=== PATIENT | female | born 1960 | race Caucasian/White ===

== ENCOUNTER → 2017-10-24 | Emergency (ER) | payer MEDICAID ==
[~2017-10-24] VITALS: Ht 157.5 cm; Wt 77.3 kg
[~2017-10-24] MED LIST: ATOR20TA PO; FLUT16SP26 BOTHNARES; HYDR-3965 PO; INSU100V12 SQ; METF500T PO; MONT10TA21 PO; NAPR-56 PO; QUET-1 PO; ibuprofen 200mg tablet PO ONE; ibuprofen tablet 400 MG TABLET PO ONE
[2017-10-24 11:52] VITALS: BP 136/85
== END | disposition home or self-care (01) ==
LOC: ER 10:17
DX: M79.603 Pain in arm, unspecified (principal); I25.10 Atherosclerotic heart disease of native coronary artery without angina pectoris; E78.00 Pure hypercholesterolemia, unspecified; I10 Essential (primary) hypertension; I25.2 Old myocardial infarction; J44.9 Chronic obstructive pulmonary disease, unspecified; K21.9 Gastro-esophageal reflux disease without esophagitis; E11.9 Type 2 diabetes mellitus without complications; F17.200 Nicotine dependence, unspecified, uncomplicated; Z98.890 Other specified postprocedural states; Z59.0 Homelessness; Z60.2 Problems related to living alone; Z88.1 Allergy status to other antibiotic agents; Z88.2 Allergy status to sulfonamides; Z88.8 Allergy status to other drugs, medicaments and biological substances; Z79.4 Long term (current) use of insulin; Z79.84 Long term (current) use of oral hypoglycemic drugs
CPT/HCPCS: 29105; 73030; 73080; 99284; A4565; A6449

== ENCOUNTER 2017-10-25 10:26 | Emergency (ER) | payer MEDICAID ==
[~2017-10-25] VITALS: Ht 157.5 cm; Wt 78.3 kg
[~2017-10-25 10:26] MED LIST changes: -HYDR-3965 PO; -NAPR-56 PO; -ibuprofen 200mg tablet PO ONE; -ibuprofen tablet 400 MG TABLET PO ONE
[2017-10-25] MEDS ORDERED: HYDR-3965 PO (12:05)
[2017-10-25 12:22] VITALS: BP 143/85
== END 2017-10-25 12:24 | disposition home or self-care (01) ==
LOC: ER 10:27
DX: Z47.89 Encounter for other orthopedic aftercare (principal); I25.10 Atherosclerotic heart disease of native coronary artery without angina pectoris; E78.00 Pure hypercholesterolemia, unspecified; I10 Essential (primary) hypertension; I25.2 Old myocardial infarction; J44.9 Chronic obstructive pulmonary disease, unspecified; K21.9 Gastro-esophageal reflux disease without esophagitis; E11.9 Type 2 diabetes mellitus without complications; Z88.2 Allergy status to sulfonamides; Z88.1 Allergy status to other antibiotic agents; Z79.4 Long term (current) use of insulin; Z79.899 Other long term (current) drug therapy; Z60.2 Problems related to living alone
CPT/HCPCS: 29105; 99283

== ENCOUNTER 2017-10-29 13:00 | Emergency (ER) | payer MEDICAID ==
[~2017-10-29] VITALS: Ht 157.5 cm; Wt 75.0 kg
[~2017-10-29 13:00] MED LIST changes: +HYDR-3965 PO
[2017-10-29 13:06] VITALS: BP 120/61
[2017-10-29] MEDS ORDERED: NAPR-56 PO (14:02)
== END 2017-10-29 14:09 | disposition home or self-care (01) ==
LOC: ER 13:00
DX: M77.9 Enthesopathy, unspecified (principal); I25.10 Atherosclerotic heart disease of native coronary artery without angina pectoris; E78.00 Pure hypercholesterolemia, unspecified; I10 Essential (primary) hypertension; I25.2 Old myocardial infarction; J44.0 Chronic obstructive pulmonary disease with (acute) lower respiratory infection; K21.9 Gastro-esophageal reflux disease without esophagitis; E11.9 Type 2 diabetes mellitus without complications; F32.9 Major depressive disorder, single episode, unspecified; Z88.1 Allergy status to other antibiotic agents; Z88.2 Allergy status to sulfonamides; Z88.5 Allergy status to narcotic agent; Z79.4 Long term (current) use of insulin
CPT/HCPCS: 73080; 99284

== ENCOUNTER 2017-12-14 10:25 | Emergency (ER) | payer MEDICAID ==
[~2017-12-14] VITALS: Ht 157.5 cm; Wt 78.7 kg
[~2017-12-14 10:25] MED LIST changes: +CEPH-571 PO; -HYDR-3965 PO
[2017-12-14 11:11] VITALS: BP 112/69
[2017-12-14] MEDS ORDERED: LIDO20SO16 PO (12:55)
== END 2017-12-14 13:00 | disposition home or self-care (01) ==
LOC: ER 10:26
DX: J02.9 Acute pharyngitis, unspecified (principal); R05 Cough; F17.200 Nicotine dependence, unspecified, uncomplicated; E78.00 Pure hypercholesterolemia, unspecified; I25.10 Atherosclerotic heart disease of native coronary artery without angina pectoris; I10 Essential (primary) hypertension; I25.2 Old myocardial infarction; J44.9 Chronic obstructive pulmonary disease, unspecified; K21.9 Gastro-esophageal reflux disease without esophagitis; E11.9 Type 2 diabetes mellitus without complications; Z60.2 Problems related to living alone; Z88.2 Allergy status to sulfonamides; Z88.8 Allergy status to other drugs, medicaments and biological substances; Z79.84 Long term (current) use of oral hypoglycemic drugs; Z79.4 Long term (current) use of insulin; Z79.899 Other long term (current) drug therapy
CPT/HCPCS: 71046; 99284

== ENCOUNTER 2018-01-21 16:40 | Emergency (ER) | payer MEDICAID ==
[~2018-01-21] VITALS: Ht 160 cm; Wt 77.0 kg
[~2018-01-21 16:40] MED LIST changes: +LIDO20SO16 PO
[2018-01-21 17:07] VITALS: BP 127/87
[2018-01-21] MEDS ORDERED: ibuprofen 200mg tablet PO ONE (19:40)
== END 2018-01-21 20:14 | disposition home or self-care (01) ==
LOC: ER 16:40
DX: S93.401A Sprain of unspecified ligament of right ankle, initial encounter (principal); I25.10 Atherosclerotic heart disease of native coronary artery without angina pectoris; E78.00 Pure hypercholesterolemia, unspecified; I10 Essential (primary) hypertension; I25.2 Old myocardial infarction; J44.9 Chronic obstructive pulmonary disease, unspecified; K21.9 Gastro-esophageal reflux disease without esophagitis; E11.9 Type 2 diabetes mellitus without complications; Z98.51 Tubal ligation status; Z59.0 Homelessness; Z88.8 Allergy status to other drugs, medicaments and biological substances; Z79.4 Long term (current) use of insulin; Z79.899 Other long term (current) drug therapy; X50.1XXA Overexertion from prolonged static or awkward postures, initial encounter; Y93.89 Activity, other specified; Y92.89 Other specified places as the place of occurrence of the external cause; Y99.8 Other external cause status
CPT/HCPCS: 73610; 99284

== ENCOUNTER 2018-11-06 15:10 | Emergency (ER) | payer MEDICAID ==
[~2018-11-06] VITALS: Ht 160 cm; Wt 78.9 kg
[2018-11-06 15:15] VITALS: BP 153/74
[2018-11-06] MEDS ORDERED: fluconazole 150mg tablet PO ONE (16:15)
[2018-11-06 16:46] LABS: CLARITY,URINE SLIGHTLY CLOUDY (Clear); COLOR,URINE STRAW (Yellow); GLUCOSE, URINE >=1000 mg/dl (Neg); KETONES,URINE NEGATIVE (Neg); LEUKOCYTE ESTERASE ,URINE NEGATIVE (Neg); NITRITES, URINE NEGATIVE (Neg); OCCULT BLOOD,URINE NEGATIVE (Neg); PROTEIN,URINE NEGATIVE (Neg); UROBILINOGEN,URINE 0.2 E.U/dL (0.2-1.0)
[2018-11-06 16:49] LABS: UA COLLECTION TYPE CLN CATCH MIDSTREAM
[2018-11-06 16:53] LABS: BACTERIA,URINE 1+ /HPF (Neg); MUCUS STRANDS FEW /LPF (Neg); RBC,URINE 0-2 /HPF (0-2); SQUAMOUS EPITHELIAL CELL,UR MANY /LPF (FEW); WBC,URINE 0-4 /HPF (0-4)
[2018-11-06] MEDS ORDERED: ibuprofen tablet 400 MG TABLET PO ONE (17:35)
== END 2018-11-06 17:47 | disposition home or self-care (01) ==
LOC: ER 15:11
DX: B37.9 Candidiasis, unspecified (principal); M54.5 Low back pain; I25.10 Atherosclerotic heart disease of native coronary artery without angina pectoris; E78.00 Pure hypercholesterolemia, unspecified; I10 Essential (primary) hypertension; I25.2 Old myocardial infarction; J44.9 Chronic obstructive pulmonary disease, unspecified; K21.9 Gastro-esophageal reflux disease without esophagitis; E11.9 Type 2 diabetes mellitus without complications; Z98.51 Tubal ligation status; Z98.890 Other specified postprocedural states; Z88.1 Allergy status to other antibiotic agents; Z88.2 Allergy status to sulfonamides; Z88.8 Allergy status to other drugs, medicaments and biological substances; Z79.84 Long term (current) use of oral hypoglycemic drugs; Z79.4 Long term (current) use of insulin; Z79.899 Other long term (current) drug therapy; Z60.2 Problems related to living alone
CPT/HCPCS: 81001; 82948; 99283

== ENCOUNTER 2020-06-29 09:53 | Emergency (ER) | payer MEDICAID ==
[~2020-06-29] VITALS: Ht 162.6 cm; Wt 77.3 kg
[2020-06-29 10:07] VITALS: BP 110/65
--- NOTE | 2020-06-29 17:32 | NUR ---
Attempted to contact patient for Marvin ORELLANA, left voicemail for patient to call ED back. Marvin ORELLANA wanted to discuss with patient that she needed to obtain an outpatient CT.
--- NOTE | 2020-06-29 18:00 | NUR ---
Patient called back and spoke with Good PA regarding need to outpatient CT.
== END 2020-06-29 12:57 | disposition home or self-care (01) ==
LOC: ER 09:53
DX: J06.9 Acute upper respiratory infection, unspecified (principal); Z20.828 Contact with and (suspected) exposure to other viral communicable diseases; I25.10 Atherosclerotic heart disease of native coronary artery without angina pectoris; E78.00 Pure hypercholesterolemia, unspecified; I10 Essential (primary) hypertension; I25.2 Old myocardial infarction; J44.9 Chronic obstructive pulmonary disease, unspecified; K21.9 Gastro-esophageal reflux disease without esophagitis; E11.9 Type 2 diabetes mellitus without complications; G89.29 Other chronic pain; F32.9 Major depressive disorder, single episode, unspecified; Z98.890 Other specified postprocedural states; Z98.51 Tubal ligation status; Z95.818 Presence of other cardiac implants and grafts; Z60.2 Problems related to living alone; Z88.1 Allergy status to other antibiotic agents; Z88.8 Allergy status to other drugs, medicaments and biological substances; Z79.4 Long term (current) use of insulin; Z79.899 Other long term (current) drug therapy
CPT/HCPCS: 36415; 71045; 87502; 87503; 87635; 99284

== ENCOUNTER 2020-09-09 17:28 | Emergency (ER) | payer MEDICAID ==
[~2020-09-09] VITALS: Ht 160 cm; Wt 78.2 kg
== END 2020-09-09 18:30 | disposition home or self-care (01) ==
LOC: ER 17:29
DX: R05 Cough (principal); I25.10 Atherosclerotic heart disease of native coronary artery without angina pectoris; E78.00 Pure hypercholesterolemia, unspecified; I10 Essential (primary) hypertension; I25.2 Old myocardial infarction; J44.9 Chronic obstructive pulmonary disease, unspecified; K21.9 Gastro-esophageal reflux disease without esophagitis; E11.9 Type 2 diabetes mellitus without complications; G89.29 Other chronic pain; F32.9 Major depressive disorder, single episode, unspecified; Z72.0 Tobacco use; Z98.51 Tubal ligation status; Z98.890 Other specified postprocedural states; Z60.2 Problems related to living alone; Z88.1 Allergy status to other antibiotic agents; Z88.8 Allergy status to other drugs, medicaments and biological substances; Z79.2 Long term (current) use of antibiotics; Z79.4 Long term (current) use of insulin; Z79.899 Other long term (current) drug therapy
CPT/HCPCS: 99281; 99282

== ENCOUNTER 2020-09-12 10:02 | Emergency (ER) | payer MEDICAID ==
[~2020-09-12] VITALS: Ht 160 cm; Wt 77.3 kg
[2020-09-12 10:10] VITALS: BP 143/80
[2020-09-12] MEDS ORDERED: DOXY100C43 PO (12:04)
== END 2020-09-12 12:16 | disposition home or self-care (01) ==
LOC: ER 10:02
DX: J45.909 Unspecified asthma, uncomplicated (principal); R06.02 Shortness of breath; H92.03 Otalgia, bilateral; R05 Cough; Z20.828 Contact with and (suspected) exposure to other viral communicable diseases; I25.10 Atherosclerotic heart disease of native coronary artery without angina pectoris; E78.00 Pure hypercholesterolemia, unspecified; I10 Essential (primary) hypertension; I25.2 Old myocardial infarction; J44.9 Chronic obstructive pulmonary disease, unspecified; K21.9 Gastro-esophageal reflux disease without esophagitis; E11.9 Type 2 diabetes mellitus without complications; G89.29 Other chronic pain; F32.9 Major depressive disorder, single episode, unspecified; F17.200 Nicotine dependence, unspecified, uncomplicated; Z98.51 Tubal ligation status; Z98.890 Other specified postprocedural states; Z60.2 Problems related to living alone; Z88.1 Allergy status to other antibiotic agents; Z88.8 Allergy status to other drugs, medicaments and biological substances; Z79.2 Long term (current) use of antibiotics; Z79.4 Long term (current) use of insulin; Z79.899 Other long term (current) drug therapy
CPT/HCPCS: 36415; 71045; 87635; 99284

== ENCOUNTER 2020-09-22 06:41 | Inpatient (IN) | payer MEDICAID ==
[~2020-09-22] VITALS: Ht 160 cm; Wt 69.0 kg
[~2020-09-22 06:41] MED LIST changes: +DOXY100C43 PO
[2020-09-22 07:17] LABS: CLARITY,URINE CLEAR (Clear); COLOR,URINE STRAW (Yellow); GLUCOSE, URINE >=1000 mg/dl (Neg); KETONES,URINE TRACE mg/dl (Neg); LEUKOCYTE ESTERASE ,URINE NEGATIVE (Neg); NITRITES, URINE NEGATIVE (Neg); OCCULT BLOOD,URINE NEGATIVE (Neg); PH,URINE 5.5 (4.8-8.0); PROTEIN,URINE NEGATIVE (Neg); UROBILINOGEN,URINE 0.2 E.U/dL (0.2-1.0)
[2020-09-22 07:24] LABS: UA COLLECTION TYPE CLN CATCH MIDSTREAM
[2020-09-22 07:25] LABS: RBC,URINE NONE SEEN /HPF (0-2); WBC,URINE 0-4 /HPF (0-4)
[2020-09-22 07:26] LABS: BACTERIA,URINE FEW /HPF (Neg); MUCUS STRANDS NONE SEEN /LPF (Neg); SQUAMOUS EPITHELIAL CELL,UR FEW /LPF (FEW); YEAST FEW /HPF (NEGATIVE)
[2020-09-22 07:42] LABS: EOSINOPHILS # (AUTO) 0.2 X10'3 (0-0.9); LYMPHOCYTES # (AUTO) 1.9 X10'3 (1.1-4.8); MONOCYTES # (AUTO) 0.5 X10'3 (0-0.9); RED CELL DISTRIBUTION WIDTH 14.1 % (11.5-14.5)
[2020-09-22 07:43] LABS: BASOPHILS # (AUTO) 0.1 X10'3 (0-0.2); BASOPHILS % (AUTO) 0.8 % (0-1); HEMATOCRIT 39.4 % (35.0-45.0); HEMOGLOBIN 13.3 g/dl (12.0-16.0); LYMPHOCYTES % (AUTO) 22.9 % (21-51); MEAN CORPUSCULAR HEMOGLOBIN 27.3 PG (27.0-31.0); MEAN CORPUSCULAR HGB CONC 33.6 g/dL (33.0-36.5); MEAN CORPUSCULAR VOLUME 81.2 FL (78-98); MEAN PLATELET VOLUME 9.1 FL (7.4-10.4); MONOCYTES % (AUTO) 5.6 % (2-12); NEUTROPHILS # (AUTO) 5.8 X10'3 (1.8-7.7); NEUTROPHILS % (AUTO) 68.7 % (42-75); PLATELET COUNT 359 X10'3 (140-440); RED BLOOD COUNT 4.85 X10'6 (4.20-5.60); WHITE BLOOD COUNT 8.4 X10'3 (4.5-11.0)
[2020-09-22] MEDS ORDERED: ondansetron/PF 4mg/2ml inj IV ONE ×2 (07:50→09:10)
[2020-09-22] MEDS ORDERED: normal saline 1000ML IV soln IVB ONE ×2 (07:50→09:10)
[2020-09-22] MEDS: morphine 4 MG/ML inj SYRINge IV PRN ×2 (07:57→08:49)
[2020-09-22 08:05] LABS: ALANINE AMINOTRANSFERASE 24 U/L (12-78); ALBUMIN 2.8 G/DL (3.4-5.0); ALBUMIN/GLOBULIN RATIO 0.7 (1.1-1.5); ALKALINE PHOSPHATASE 149 IU/L (46-116); AMYLASE 45 U/L (25-115); ANION GAP 11 (8-16); ASPARTATE AMINO TRANSFERASE 13 U/L (10-37); BILIRUBIN,TOTAL 0.3 MG/DL (0.1-1.0); BLOOD UREA NITROGEN 12 MG/DL (7-18); BUN/CREATININE RATIO 12.4 (6.6-38.0); CALCIUM 9.5 MG/DL (8.5-10.1); CHLORIDE 97 MMOL/L (99-107); CREATININE 0.97 MG/DL (0.40-0.90); GLUCOSE 416 MG/DL (70-104); LIPASE 611 U/L (73-393); POTASSIUM 4.2 MMOL/L (3.5-5.1); SODIUM 131 MMOL/L (135-145); TOTAL CARBON DIOXIDE 23.1 MMOL/L (24-32); TOTAL PROTEIN 6.7 G/DL (6.4-8.2); eGFR 59 ML/MIN
--- NOTE | 2020-09-22 08:36 | NUR ---
PT TAKEN TO CT VIA W/C BY TECH.
--- NOTE | 2020-09-22 08:43 | NUR ---
PT BACK FROM CT VIA W/C. PT GIVEN PORTABLE PHONE.
[2020-09-22] MEDS ORDERED: morphine 4 MG/ML inj SYRINge IV PRN (09:10)
[2020-09-22] MEDS ORDERED: sucralfate 1gm/10ml UD suspension PO STA (10:13)
[2020-09-22] MEDS ORDERED: HYDROcodone/acetaminophen 10/325mg tab PO ONE (10:15)
[2020-09-22] MEDS ORDERED: LIDOcaine Viscous 15ml cup MM ONE (10:15)
[2020-09-22] MEDS ORDERED: mag hydrox/Alum hydrox/simeth 30ml oral suspension PO ONE (10:15)
[2020-09-22] MEDS ORDERED: HYDR-4353 PO (10:17)
[2020-09-22] MEDS ORDERED: SUCR1TAB34 PO (10:17)
[2020-09-22] MEDS ORDERED: ONDA4TAB6 PO (10:17)
[2020-09-22] MEDS ORDERED: fentaNYL/PF 50MCG/1 ML 2ML syringe IV ONE (10:50)
[2020-09-22] MEDS ORDERED: proCHLORperazine 10 MG/2 ml inj IV ONE (10:55)
[2020-09-22] MEDS ORDERED: morphine 2 MG/ML inj. syringe IV PRN (11:55)
[2020-09-22] MEDS ORDERED: mag hydrox/Alum hydrox/simeth 30ml oral suspension PO PRN (11:55)
[2020-09-22] MEDS ORDERED: acetaminophen 325mg tablet PO PRN (11:55)
[2020-09-22] MEDS: pantoprazole 40 MG vial IV SCH (12:36)
[2020-09-22] MEDS: normal saline 1000ml 1,000 ML IV SCH ×3 (12:36→21:03)
--- NOTE | 2020-09-22 13:30 | NUR ---
CALLED ER TO GET REPORT ON ONE ANSWERED
--- NOTE | 2020-09-22 13:44 | NUR ---
Discussed increased restlessness and continued c/o pain following various pain med administrations with hemal New. New order for ativan 2mg IV received.
[2020-09-22] MEDS ORDERED: LORazepam 2 mg/ml vial IM ONE (13:45)
[2020-09-22 14:17] VITALS: BP 150/72
[2020-09-22] MEDS ORDERED: GLIM4TAB7 PO (15:05)
[2020-09-22] MEDS ORDERED: OMEP-50 PO (15:05)
[2020-09-22] MEDS ORDERED: SIMV-45 PO (15:05)
[2020-09-22] MEDS ORDERED: DOCU-22 PO (15:05)
[2020-09-22] MEDS ORDERED: ALBU17AE26 PO (15:05)
[2020-09-22] MEDS ORDERED: METF-438 PO (15:05)
[2020-09-22] MEDS ORDERED: BUSP10TA3 PO (15:05)
[2020-09-22] MEDS ORDERED: FLUT16SP26 BOTHNARES (15:05)
[2020-09-22] MEDS ORDERED: QUET100T33 PO (15:05)
[2020-09-22] MEDS ORDERED: ROPI2TAB7 PO (15:05)
[2020-09-22] MEDS ORDERED: LORA10TA7 PO (15:05)
[2020-09-22] MEDS ORDERED: CYCL-1 PO (15:05)
[2020-09-22] MEDS ORDERED: FLUO-10 PO (15:05)
[2020-09-22] MEDS ORDERED: BECL10.6 PO (15:05)
--- NOTE | 2020-09-22 18:38 | NUR ---
Patient in room [facility]. I have received report from Autumn JEAN-BAPTISTE and had the opportunity to ask questions and assume patient care.
--- NOTE | 2020-09-22 18:54 | NUR ---
Problems reprioritized. Patient report given, questions answered & plan of care reviewed with JERILYN LEONARD.
[2020-09-22 20:00] VITALS: BP 157/73
[2020-09-22] MEDS: heparin, porcine 5000 units/ml vial SQ SCH (20:00)
[2020-09-22] MEDS: budesonide 0.5mg/2ml UD nebule IH SCH (20:00)
[2020-09-22] MEDS: cyclobenzaprine 10mg tablet PO SCH (20:13)
[2020-09-22] MEDS: busPIRone 5mg tablet PO SCH (20:13)
[2020-09-22] MEDS: ROPINIRole 1mg tablet PO SCH (20:14)
[2020-09-22] MEDS: quetiapine 100mg tablet PO SCH (20:28)
[2020-09-22] MEDS: HYDROmorphone inj. 0.5 MG/0.5 ML DISP.SYRIN IV PRN (21:10)
[2020-09-22] MEDS: ondansetron/PF 4mg/2ml inj IV PRN (21:16)
[2020-09-22] MEDS ORDERED: dextrose ORAL solution 15 GM/59 ML bottle PO PRN ×2 (21:25)
[2020-09-22] MEDS ORDERED: glucagon, human recombinant 1mg kit SUBCUT PRN (21:25)
[2020-09-22] MEDS ORDERED: dextrose 50%-water 50ml dispensing syringe IV PRN ×2 (21:25)
[2020-09-22] MEDS ORDERED: MESSAGE TO PHARMACY PO ONE (21:25)
--- NOTE | 2020-09-22 21:25 | NUR ---
Spoke with MD about critical blood sugar of 412. Received order to place patient on the DM protocol.
[2020-09-22] MEDS: insulin glargine (Lantus) pen - multi-dose SQ SCH (21:46)
[2020-09-22] MEDS: insulin Lispro (HumaLOG) vial - multi-dose SQ SCH (21:48)
[2020-09-22 21:53] LABS: HEMOGLOBIN A1C 11.7 % (4.5-6.2)
[2020-09-23] VITALS: BP 117/64
[2020-09-23] MEDS: HYDROmorphone inj. 0.5 MG/0.5 ML DISP.SYRIN IV PRN ×4 (00:53→20:21)
[2020-09-23] MEDS: normal saline 1000ml 1,000 ML IV SCH ×2 (03:38→10:42)
--- NOTE | 2020-09-23 06:08 | NUR ---
Problems reprioritized. Patient report given, questions answered & plan of care reviewed with Sana JEAN-BAPTISTE.
--- NOTE | 2020-09-23 06:10 | NUR ---
Patient in room [facility]. I have received report from Carol JEAN-BAPTISTE and had the opportunity to ask questions and assume patient care.
[2020-09-23 07:00] VITALS: BP 138/76
[2020-09-23] MEDS: pantoprazole 40mg Tablet.DR PO SCH (07:30)
[2020-09-23] MEDS: insulin Lispro (HumaLOG) vial - multi-dose SQ SCH ×2 (07:35→13:13)
[2020-09-23] MEDS: pantoprazole 40 MG vial IV SCH (07:37)
[2020-09-23] MEDS: loratadine 10mg tablet PO SCH (07:38)
[2020-09-23] MEDS: FLUoxetine 20mg capsule PO SCH (07:38)
[2020-09-23] MEDS: busPIRone 5mg tablet PO SCH ×3 (07:38→20:28)
[2020-09-23] MEDS: cyclobenzaprine 10mg tablet PO SCH ×3 (07:38→20:07)
[2020-09-23] MEDS: heparin, porcine 5000 units/ml vial SQ SCH ×2 (07:39→20:00)
[2020-09-23] MEDS: budesonide 0.5mg/2ml UD nebule IH SCH ×2 (08:00→22:56)
[2020-09-23] MEDS ORDERED: quetiapine 100mg tablet PO SCH (08:00)
[2020-09-23 10:32] LABS: ALANINE AMINOTRANSFERASE 18 U/L (12-78); ALBUMIN 2.4 G/DL (3.4-5.0); ALBUMIN/GLOBULIN RATIO 0.6 (1.1-1.5); ALKALINE PHOSPHATASE 105 IU/L (46-116); ANION GAP 18 (8-16); ASPARTATE AMINO TRANSFERASE 19 U/L (10-37); BILIRUBIN,TOTAL 0.6 MG/DL (0.1-1.0); BLOOD UREA NITROGEN 12 MG/DL (7-18); BUN/CREATININE RATIO 10.7 (6.6-38.0); CALCIUM 8.8 MG/DL (8.5-10.1); CHLORIDE 105 MMOL/L (99-107); CREATININE 1.12 MG/DL (0.40-0.90); GLUCOSE 394 MG/DL (70-104); POTASSIUM 4.7 MMOL/L (3.5-5.1); SODIUM 139 MMOL/L (135-145); TOTAL CARBON DIOXIDE 16.2 MMOL/L (24-32); TOTAL PROTEIN 6.4 G/DL (6.4-8.2); eGFR 50 ML/MIN
[2020-09-23] MEDS: fluticasone nasal spray 16GM bottle NS SCH ×2 (10:43→20:07)
[2020-09-23 11:00] VITALS: BP 132/80
[2020-09-23 11:38] LABS: BASOPHILS # (AUTO) 0.1 X10'3 (0-0.2); BASOPHILS % (AUTO) 0.5 % (0-1); EOSINOPHILS % (AUTO) 0 % (0-6); HEMATOCRIT 47.8 % (35.0-45.0); HEMOGLOBIN 15.5 g/dl (12.0-16.0); LYMPHOCYTES # (AUTO) 2.1 X10'3 (1.1-4.8); LYMPHOCYTES % (AUTO) 11.4 % (21-51); MEAN CORPUSCULAR HEMOGLOBIN 26.9 PG (27.0-31.0); MEAN CORPUSCULAR HGB CONC 32.4 g/dL (33.0-36.5); MEAN CORPUSCULAR VOLUME 83.1 FL (78-98); MEAN PLATELET VOLUME 9.8 FL (7.4-10.4); MONOCYTES # (AUTO) 0.8 X10'3 (0-0.9); MONOCYTES % (AUTO) 4.6 % (2-12); NEUTROPHILS # (AUTO) 15.1 X10'3 (1.8-7.7); NEUTROPHILS % (AUTO) 83.5 % (42-75); PLATELET COUNT 257 X10'3 (140-440); RED BLOOD COUNT 5.75 X10'6 (4.20-5.60); RED CELL DISTRIBUTION WIDTH 14.7 % (11.5-14.5); WHITE BLOOD COUNT 18.1 X10'3 (4.5-11.0)
[2020-09-23 11:55] LABS: CHOLESTEROL 152 MG/DL (0-200); HDL CHOLESTEROL 50 MG/DL (35-60); LDL CHOLESTEROL 84 MG/DL (50-100); TRIGLYCERIDES 104 MG/DL (20-135)
[2020-09-23] MEDS ORDERED: LORazepam 2 mg/ml vial IV ONE ×2 (12:40→13:05)
[2020-09-23 13:43] LABS: URINE AMPHETAMINE SCREEN NEGATIVE (Neg); URINE BARBITUATE SCREEN NEGATIVE (Neg); URINE BENZODIAZEPINES SCREEN NEGATIVE (Neg); URINE CANNABINOID SCREEN NEGATIVE (Neg); URINE COCAINE SCREEN NEGATIVE (Neg); URINE METHADONE SCREEN NEGATIVE (Neg); URINE OPIATE SCREEN POSITIVE (Neg); URINE PHENCYCLIDINE SCREEN NEGATIVE (Neg)
--- NOTE | 2020-09-23 14:39 | NUR ---
DM consult, A1c 11.7%, met at bedside and given written DM education handout with verbal review. NPO, admit with acute pancreatitis. Lipase 611. C/o abdominal pain and nausea. States that she has not taken her metformin for 3 months d/t not feeling well. Encouraged pt to take meds as her PCP prescribed. Addendum: 09/23/20 at [address] Amended: Links added.
[2020-09-23] MEDS: docusate sod 100mg capsule PO PRN (16:00)
[2020-09-23 18:00] VITALS: BP 118/57
--- NOTE | 2020-09-23 18:37 | NUR ---
Problems reprioritized. Patient report given, questions answered & plan of care reviewed with Ramy JEAN-BAPTISTE.
--- NOTE | 2020-09-23 18:56 | NUR ---
I have received report from JERILYN Hood and had the opportunity to ask questions and assume patient care.
[2020-09-23] MEDS: quetiapine 100mg tablet PO SCH (20:08)
[2020-09-23] MEDS: ROPINIRole 1mg tablet PO SCH (20:09)
[2020-09-23] MEDS: insulin glargine (Lantus) pen - multi-dose SQ SCH (20:19)
--- NOTE | 2020-09-23 21:43 | NUR ---
Patient wanted her medications and her lantus all given at 1999 so she could go to sleep Addendum: 09/23/20 at 2144 by Ramy Hunt RN Amended: Links added.
[2020-09-24] VITALS: BP 115/70
[2020-09-24] MEDS: normal saline 1000ml 1,000 ML IV SCH ×2 (00:25→14:43)
[2020-09-24] MEDS: HYDROmorphone inj. 0.5 MG/0.5 ML DISP.SYRIN IV PRN ×5 (01:44→19:18)
--- NOTE | 2020-09-24 06:29 | NUR ---
Problems reprioritized. Patient report given, questions answered & plan of care reviewed with JERILYN Phelps.
--- NOTE | 2020-09-24 06:30 | NUR ---
Patient in room [facility]. I have received report from Ramy JEAN-BAPTISTE and had the opportunity to ask questions and assume patient care.
[2020-09-24] MEDS: pantoprazole 40mg Tablet.DR PO SCH (07:30)
--- NOTE | 2020-09-24 07:40 | NUR ---
PAGER ID: [phone] MESSAGE: [facility] [phone] RE: Deangelo Frazier Pebblesa Patient has critical Hb of 6.8 and Hct of 20.2. Addendum: 09/24/20 at 0741 by Robbie Leonard RN this note was added on the incorrect patient
[2020-09-24] MEDS: budesonide 0.5mg/2ml UD nebule IH SCH ×2 (07:58→19:21)
[2020-09-24 08:00] VITALS: BP 120/63
[2020-09-24] MEDS: cyclobenzaprine 10mg tablet PO SCH ×3 (08:00→20:47)
[2020-09-24 08:24] LABS: BASOPHILS # (AUTO) 0.1 X10'3 (0-0.2); BASOPHILS % (AUTO) 0.5 % (0-1); EOSINOPHILS % (AUTO) 0.2 % (0-6); HEMATOCRIT 39.2 % (35.0-45.0); HEMOGLOBIN 12.6 g/dl (12.0-16.0); LYMPHOCYTES # (AUTO) 1.4 X10'3 (1.1-4.8); LYMPHOCYTES % (AUTO) 8.5 % (21-51); MEAN CORPUSCULAR HEMOGLOBIN 26.4 PG (27.0-31.0); MEAN CORPUSCULAR HGB CONC 32.2 g/dL (33.0-36.5); MEAN CORPUSCULAR VOLUME 82.1 FL (78-98); MEAN PLATELET VOLUME 9.3 FL (7.4-10.4); MONOCYTES # (AUTO) 0.9 X10'3 (0-0.9); MONOCYTES % (AUTO) 5.4 % (2-12); NEUTROPHILS # (AUTO) 14.3 X10'3 (1.8-7.7); NEUTROPHILS % (AUTO) 85.4 % (42-75); PLATELET COUNT 200 X10'3 (140-440); RED BLOOD COUNT 4.77 X10'6 (4.20-5.60); RED CELL DISTRIBUTION WIDTH 14.5 % (11.5-14.5); WHITE BLOOD COUNT 16.7 X10'3 (4.5-11.0)
[2020-09-24 08:41] LABS: ALANINE AMINOTRANSFERASE 13 U/L (12-78); ALBUMIN 2.1 G/DL (3.4-5.0); ALBUMIN/GLOBULIN RATIO 0.5 (1.1-1.5); ALKALINE PHOSPHATASE 90 IU/L (46-116); ANION GAP 12 (8-16); ASPARTATE AMINO TRANSFERASE 18 U/L (10-37); BILIRUBIN,TOTAL 0.6 MG/DL (0.1-1.0); BLOOD UREA NITROGEN 13 MG/DL (7-18); BUN/CREATININE RATIO 14.8 (6.6-38.0); CALCIUM 8.5 MG/DL (8.5-10.1); CHLORIDE 102 MMOL/L (99-107); CREATININE 0.88 MG/DL (0.40-0.90); GLUCOSE 195 MG/DL (70-104); LIPASE 1076 U/L (73-393); POTASSIUM 4.4 MMOL/L (3.5-5.1); SODIUM 133 MMOL/L (135-145); TOTAL CARBON DIOXIDE 18.7 MMOL/L (24-32); TOTAL PROTEIN 6.1 G/DL (6.4-8.2); eGFR 66 ML/MIN
[2020-09-24] MEDS: FLUoxetine 20mg capsule PO SCH (08:57)
[2020-09-24] MEDS: loratadine 10mg tablet PO SCH (08:57)
[2020-09-24] MEDS: busPIRone 5mg tablet PO SCH ×3 (08:58→20:48)
[2020-09-24] MEDS: pantoprazole 40 MG vial IV SCH (08:59)
[2020-09-24] MEDS: heparin, porcine 5000 units/ml vial SQ SCH ×2 (09:00→19:22)
[2020-09-24] MEDS: fluticasone nasal spray 16GM bottle NS SCH ×2 (09:05→21:01)
[2020-09-24] MEDS: insulin Lispro (HumaLOG) vial - multi-dose SQ SCH (09:11)
[2020-09-24 12:00] VITALS: BP 134/74
[2020-09-24 18:00] VITALS: BP_SYST 119; BP_SYST 120; BP_DIAS 60; BP_DIAS 86
--- NOTE | 2020-09-24 18:17 | NUR ---
Problems reprioritized. Patient report given, questions answered & plan of care reviewed with Ramy JEAN-BAPTISTE.
--- NOTE | 2020-09-24 18:33 | NUR ---
Patient in room [facility]. I have received report from JERILYN Phelps and had the opportunity to ask questions and assume patient care.
[2020-09-24] MEDS: albuterol 2.5 MG/3 ML nebule NEB PRN (19:21)
[2020-09-24] MEDS: ROPINIRole 1mg tablet PO SCH (20:48)
[2020-09-24] MEDS: quetiapine 100mg tablet PO SCH (20:48)
[2020-09-24] MEDS: insulin glargine (Lantus) pen - multi-dose SQ SCH (21:06)
[2020-09-24] MEDS: diatr meglu/diatrizoate 30ml oral sol.-(3 dose) bottle PO SCH (23:29)
[2020-09-24] MEDS: piperacillin/tazo 3.375gm/50ml 50 ML IV SCH (23:30)
[2020-09-25 00:39] VITALS: BP_SYST 116; BP_SYST 99; BP_DIAS 46; BP_DIAS 66
[2020-09-25] MEDS: HYDROmorphone inj. 0.5 MG/0.5 ML DISP.SYRIN IV PRN ×5 (01:36→20:16)
[2020-09-25 06:19] LABS: BASOPHILS # (AUTO) 0.1 X10'3 (0-0.2); BASOPHILS % (AUTO) 1.2 % (0-1); EOSINOPHILS # (AUTO) 0.1 X10'3 (0-0.9); EOSINOPHILS % (AUTO) 0.7 % (0-6); HEMATOCRIT 32.9 % (35.0-45.0); HEMOGLOBIN 10.9 g/dl (12.0-16.0); LYMPHOCYTES # (AUTO) 1.3 X10'3 (1.1-4.8); LYMPHOCYTES % (AUTO) 10.2 % (21-51); MEAN CORPUSCULAR HEMOGLOBIN 27.1 PG (27.0-31.0); MEAN CORPUSCULAR HGB CONC 33.1 g/dL (33.0-36.5); MEAN CORPUSCULAR VOLUME 81.9 FL (78-98); MEAN PLATELET VOLUME 9.7 FL (7.4-10.4); MONOCYTES # (AUTO) 0.8 X10'3 (0-0.9); MONOCYTES % (AUTO) 6.8 % (2-12); NEUTROPHILS % (AUTO) 81.1 % (42-75); PLATELET COUNT 181 X10'3 (140-440); RED BLOOD COUNT 4.02 X10'6 (4.20-5.60); RED CELL DISTRIBUTION WIDTH 14.3 % (11.5-14.5); WHITE BLOOD COUNT 12.3 X10'3 (4.5-11.0)
--- NOTE | 2020-09-25 06:24 | NUR ---
Problems reprioritized. Patient report given, questions answered & plan of care reviewed with JERILYN Rubio.
--- NOTE | 2020-09-25 06:29 | NUR ---
Patient in room [facility]. I have received report from Ramy JEAN-BAPTISTE and had the opportunity to ask questions and assume patient care.
[2020-09-25 06:39] LABS: ANION GAP 15 (8-16); BLOOD UREA NITROGEN 11 MG/DL (7-18); BUN/CREATININE RATIO 13.1 (6.6-38.0); CHLORIDE 102 MMOL/L (99-107); CREATININE 0.84 MG/DL (0.40-0.90); GLUCOSE 171 MG/DL (70-104); POTASSIUM 3.5 MMOL/L (3.5-5.1); SODIUM 134 MMOL/L (135-145); TOTAL CARBON DIOXIDE 17.5 MMOL/L (24-32)
[2020-09-25 06:40] LABS: ALANINE AMINOTRANSFERASE 13 U/L (12-78); ALBUMIN 1.8 G/DL (3.4-5.0); ALBUMIN/GLOBULIN RATIO 0.5 (1.1-1.5); ALKALINE PHOSPHATASE 91 IU/L (46-116); ASPARTATE AMINO TRANSFERASE 16 U/L (10-37); BILIRUBIN,TOTAL 0.6 MG/DL (0.1-1.0); CALCIUM 8.2 MG/DL (8.5-10.1); LIPASE 267 U/L (73-393); TOTAL PROTEIN 5.7 G/DL (6.4-8.2); eGFR 70 ML/MIN
[2020-09-25 07:00] VITALS: BP 115/59
[2020-09-25] MEDS: diatr meglu/diatrizoate 30ml oral sol.-(3 dose) bottle PO SCH ×2 (07:05→10:39)
[2020-09-25] MEDS: pantoprazole 40 MG vial IV SCH (07:05)
[2020-09-25] MEDS: loratadine 10mg tablet PO SCH (07:06)
[2020-09-25] MEDS: FLUoxetine 20mg capsule PO SCH (07:06)
[2020-09-25] MEDS: cyclobenzaprine 10mg tablet PO SCH ×3 (07:06→20:20)
[2020-09-25] MEDS: magnesium hydroxide 30ml (MOM) UD suspension PO PRN (07:07)
[2020-09-25] MEDS: fluticasone nasal spray 16GM bottle NS SCH ×2 (07:07→20:20)
[2020-09-25] MEDS: heparin, porcine 5000 units/ml vial SQ SCH ×2 (07:08→20:19)
[2020-09-25] MEDS: busPIRone 5mg tablet PO SCH ×3 (07:08→20:20)
[2020-09-25] MEDS: insulin Lispro (HumaLOG) vial - multi-dose SQ SCH ×3 (07:22→19:05)
[2020-09-25] MEDS: piperacillin/tazo 3.375gm/50ml 50 ML IV SCH ×2 (07:22→16:00)
[2020-09-25] MEDS: pantoprazole 40mg Tablet.DR PO SCH (07:30)
[2020-09-25] MEDS: albuterol 2.5 MG/3 ML nebule NEB PRN ×2 (07:45→20:39)
[2020-09-25] MEDS: budesonide 0.5mg/2ml UD nebule IH SCH ×2 (07:45→20:39)
[2020-09-25] MEDS ORDERED: iohexol 300mg/ml 100ml inj. ONE (10:40)
[2020-09-25 11:00] VITALS: BP 138/70
[2020-09-25 14:12] LABS: HEMATOCRIT 34.3 % (35.0-45.0); MEAN CORPUSCULAR HEMOGLOBIN 26.3 PG (27.0-31.0); MEAN CORPUSCULAR HGB CONC 32.1 g/dL (33.0-36.5); MEAN PLATELET VOLUME 9.3 FL (7.4-10.4); PLATELET COUNT 198 X10'3 (140-440); RED BLOOD COUNT 4.19 X10'6 (4.20-5.60); RED CELL DISTRIBUTION WIDTH 14.3 % (11.5-14.5); WHITE BLOOD COUNT 12.8 X10'3 (4.5-11.0)
[2020-09-25] MEDS: normal saline 1000ml 1,000 ML IV SCH ×2 (16:00→19:25)
--- NOTE | 2020-09-25 17:03 | NUR ---
Initial: Pt admit DX acute pancreatitis w/ lipase now WNL and Glu 357 on admit down to 209 today. Hx DM non-compliant w/ meds. Advanced to clear liquid diet today; previously NPO 3 days since admit documented as 0% PO meals but actually NPO. LBM 09/20 and receiving MoM today per RN w/ PRN MoM and colace ordered in EMR. Will monitor for PO diet tolerance and advancement as medically indicated. Rec: 1. advance diet as medically indicated to carb controlled 2. monitor for ONS needs pending PO hx 3. routine bowel care; if continued constipation consider opioid antagonist since receiving dilaudid if MD agreeable 4. scaled wt this admit Addendum: 09/25/20 at [address] Amended: Links added.
--- NOTE | 2020-09-25 18:35 | NUR ---
Problems reprioritized. Patient report given, questions answered & plan of care reviewed with Pat RN.
[2020-09-25] MEDS: ondansetron/PF 4mg/2ml inj IV PRN (18:49)
[2020-09-25 19:00] VITALS: BP 156/66
[2020-09-25] MEDS: docusate sod 100mg capsule PO PRN (20:18)
[2020-09-25] MEDS: quetiapine 100mg tablet PO SCH (20:20)
[2020-09-25] MEDS: ROPINIRole 1mg tablet PO SCH (20:21)
[2020-09-25] MEDS: insulin glargine (Lantus) pen - multi-dose SQ SCH (21:46)
[2020-09-25 23:30] VITALS: BP 110/55
[2020-09-26] MEDS: piperacillin/tazo 3.375gm/50ml 50 ML IV SCH ×3 (00:06→15:38)
[2020-09-26] MEDS: HYDROmorphone inj. 0.5 MG/0.5 ML DISP.SYRIN IV PRN ×3 (00:09→09:23)
[2020-09-26 05:50] LABS: BASOPHILS # (AUTO) 0.1 X10'3 (0-0.2); EOSINOPHILS # (AUTO) 0.2 X10'3 (0-0.9); MEAN PLATELET VOLUME 9.6 FL (7.4-10.4); NEUTROPHILS # (AUTO) 9.3 X10'3 (1.8-7.7); PLATELET COUNT 193 X10'3 (140-440); RED CELL DISTRIBUTION WIDTH 14.2 % (11.5-14.5); WHITE BLOOD COUNT 11.4 X10'3 (4.5-11.0)
[2020-09-26 05:51] LABS: EOSINOPHILS % (AUTO) 1.6 % (0-6); HEMOGLOBIN 9.8 g/dl (12.0-16.0); LYMPHOCYTES # (AUTO) 1.1 X10'3 (1.1-4.8); LYMPHOCYTES % (AUTO) 9.3 % (21-51); MEAN CORPUSCULAR HEMOGLOBIN 26.3 PG (27.0-31.0); MEAN CORPUSCULAR HGB CONC 32.5 g/dL (33.0-36.5); MEAN CORPUSCULAR VOLUME 80.7 FL (78-98); MONOCYTES # (AUTO) 0.7 X10'3 (0-0.9); MONOCYTES % (AUTO) 6.5 % (2-12); NEUTROPHILS % (AUTO) 81.6 % (42-75); RED BLOOD COUNT 3.72 X10'6 (4.20-5.60)
[2020-09-26 06:21] LABS: ALANINE AMINOTRANSFERASE 13 U/L (12-78); ALBUMIN 1.7 G/DL (3.4-5.0); ALBUMIN/GLOBULIN RATIO 0.4 (1.1-1.5); ALKALINE PHOSPHATASE 94 IU/L (46-116); ANION GAP 11 (8-16); ASPARTATE AMINO TRANSFERASE 12 U/L (10-37); BILIRUBIN,TOTAL 0.5 MG/DL (0.1-1.0); BLOOD UREA NITROGEN 7 MG/DL (7-18); CALCIUM 8.2 MG/DL (8.5-10.1); CHLORIDE 100 MMOL/L (99-107); GLUCOSE 159 MG/DL (70-104); LIPASE 67 U/L (73-393); POTASSIUM 3.1 MMOL/L (3.5-5.1); SODIUM 132 MMOL/L (135-145); TOTAL PROTEIN 5.7 G/DL (6.4-8.2); eGFR 86 ML/MIN
--- NOTE | 2020-09-26 06:24 | NUR ---
Patient in room [facility]. I have received report from Pat RN and had the opportunity to ask questions and assume patient care.
[2020-09-26] MEDS: normal saline 1000ml 1,000 ML IV SCH ×2 (06:28→19:46)
--- NOTE | 2020-09-26 06:51 | NUR ---
Paged Dr. Arias PAGER ID: [phone] MESSAGE: Surgical Sana RN ext [phone]. RE: Landy Almodovar. Eliud 3.1 this am, can I get order to replace per protocol?
[2020-09-26] MEDS ORDERED: potassium Cl 20 mEq SR tablet PO PRN (06:55)
[2020-09-26] MEDS ORDERED: potassium Cl 40MEQ/1/2NS 520ml 520 ML IV PRN (06:55)
[2020-09-26 07:00] VITALS: BP 116/57
[2020-09-26] MEDS: fluticasone nasal spray 16GM bottle NS SCH ×2 (07:47→22:19)
[2020-09-26] MEDS: FLUoxetine 20mg capsule PO SCH (07:47)
[2020-09-26] MEDS: potassium Cl 20 mEq SR tablet PO PRN ×3 (07:48→22:18)
[2020-09-26] MEDS: cyclobenzaprine 10mg tablet PO SCH ×3 (07:48→22:17)
[2020-09-26] MEDS: loratadine 10mg tablet PO SCH (07:48)
[2020-09-26] MEDS: pantoprazole 40mg Tablet.DR PO SCH (07:48)
[2020-09-26] MEDS: heparin, porcine 5000 units/ml vial SQ SCH ×2 (07:50→20:16)
[2020-09-26] MEDS: busPIRone 5mg tablet PO SCH ×3 (08:00→21:00)
[2020-09-26] MEDS: budesonide 0.5mg/2ml UD nebule IH SCH ×2 (08:00→20:00)
[2020-09-26] MEDS: K and/or MAG REPLACEMENT MC SCH ×2 (08:00→22:19)
[2020-09-26] MEDS: pantoprazole 40 MG vial IV SCH (08:00)
[2020-09-26] MEDS: insulin Lispro (HumaLOG) vial - multi-dose SQ SCH (08:12)
[2020-09-26] MEDS: MESSAGE TO NURSING PO NR (09:10)
[2020-09-26] MEDS: docusate sod 100mg capsule PO PRN (09:23)
[2020-09-26 11:00] VITALS: BP 111/51
--- NOTE | 2020-09-26 11:26 | NUR ---
0800 pULMOCORT NOT GIVE-PT. REFUSED
--- NOTE | 2020-09-26 12:14 | NUR ---
Blood sugar initially was 64mgld/, I repeated it and the glucometer gave me a reading of 62 mg/dl. Patient was alert, oriented x4, asymptomatic. Patient said she did not ate much this morning. Glucose shot 15gm PO given as indicated for hypoglycemia.
[2020-09-26] MEDS ORDERED: HYDROcodone/acetaminophen 5mg/325mg tablet PO PRN (12:35)
--- NOTE | 2020-09-26 13:12 | NUR ---
12:36pm - repeat blood sugar was 86mg/dl. Instructed patient to ensure she eat all her lunch to prevent another drop in blood sugar.
--- NOTE | 2020-09-26 13:57 | NUR ---
Soap suds enema administered, patient tolerated the procedure, she had small amount of dark green formed stools.
[2020-09-26] MEDS: HYDROcodone/acetaminophen 10/325mg tab PO PRN (15:33)
--- NOTE | 2020-09-26 18:45 | NUR ---
Patient in room [facility]. I have received report from Sana JEAN-BAPTISTE and had the opportunity to ask questions and assume patient care.
--- NOTE | 2020-09-26 18:48 | NUR ---
Problems reprioritized. Patient report given, questions answered & plan of care reviewed with Anisha JEAN-BAPTISTE.
[2020-09-26 19:00] VITALS: BP 134/60
[2020-09-26] MEDS: docusate sod 100mg capsule PO SCH (20:16)
[2020-09-26] MEDS: magnesium hydroxide 30ml (MOM) UD suspension PO PRN (20:17)
[2020-09-26] MEDS: insulin glargine (Lantus) pen - multi-dose SQ SCH (21:00)
[2020-09-26] MEDS: quetiapine 100mg tablet PO SCH (22:17)
[2020-09-26] MEDS: ROPINIRole 1mg tablet PO SCH (22:17)
--- NOTE | 2020-09-26 22:51 | NUR ---
Patient stated that she did not like what came up on the tray. Pt.was offered a sandwich, but states that it smelled funny. Pt. drank only a half cup of broth. Did not want to try anything else. Addendum: 09/26/20 at 2253 by Anisha Martinez RN Amended: Links added.
[2020-09-27] VITALS: BP 121/72
[2020-09-27] MEDS: piperacillin/tazo 3.375gm/50ml 50 ML IV SCH ×2 (00:03→08:43)
[2020-09-27] MEDS: HYDROcodone/acetaminophen 10/325mg tab PO PRN ×4 (00:07→13:22)
--- NOTE | 2020-09-27 00:54 | NUR ---
New PIV started to R wrist as PIV to L breast started to hurt patient.
[2020-09-27 06:11] LABS: BASOPHILS # (AUTO) 0.1 X10'3 (0-0.2); BASOPHILS % (AUTO) 0.7 % (0-1); EOSINOPHILS # (AUTO) 0.3 X10'3 (0-0.9); EOSINOPHILS % (AUTO) 2.2 % (0-6); HEMOGLOBIN 9.4 g/dl (12.0-16.0); LYMPHOCYTES # (AUTO) 1.2 X10'3 (1.1-4.8); LYMPHOCYTES % (AUTO) 10.8 % (21-51); MEAN CORPUSCULAR HGB CONC 32.3 g/dL (33.0-36.5); MEAN CORPUSCULAR VOLUME 80.6 FL (78-98); MEAN PLATELET VOLUME 9.7 FL (7.4-10.4); MONOCYTES # (AUTO) 0.8 X10'3 (0-0.9); MONOCYTES % (AUTO) 7.2 % (2-12); NEUTROPHILS % (AUTO) 79.1 % (42-75); PLATELET COUNT 216 X10'3 (140-440); RED CELL DISTRIBUTION WIDTH 14.1 % (11.5-14.5); WHITE BLOOD COUNT 11.3 X10'3 (4.5-11.0)
[2020-09-27 06:25] LABS: ALANINE AMINOTRANSFERASE 13 U/L (12-78); ALBUMIN 1.7 G/DL (3.4-5.0); ALBUMIN/GLOBULIN RATIO 0.5 (1.1-1.5); ALKALINE PHOSPHATASE 98 IU/L (46-116); ANION GAP 9 (8-16); ASPARTATE AMINO TRANSFERASE 13 U/L (10-37); BILIRUBIN,TOTAL 0.5 MG/DL (0.1-1.0); BLOOD UREA NITROGEN 5 MG/DL (7-18); BUN/CREATININE RATIO 7.7 (6.6-38.0); CALCIUM 8.3 MG/DL (8.5-10.1); CHLORIDE 104 MMOL/L (99-107); CREATININE 0.65 MG/DL (0.40-0.90); GLUCOSE 128 MG/DL (70-104); POTASSIUM 3.6 MMOL/L (3.5-5.1); SODIUM 134 MMOL/L (135-145); TOTAL CARBON DIOXIDE 21.2 MMOL/L (24-32); TOTAL PROTEIN 5.4 G/DL (6.4-8.2); eGFR > 90 ML/MIN
--- NOTE | 2020-09-27 06:56 | NUR ---
Patient in room [facility]. I have received report from masoud GALVAN and had the opportunity to ask questions and assume patient care.
--- NOTE | 2020-09-27 06:58 | NUR ---
Problems reprioritized. Patient report given, questions answered & plan of care reviewed with Betty JEAN-BAPTISTE.
[2020-09-27 08:00] VITALS: BP 107/53
[2020-09-27] MEDS: busPIRone 5mg tablet PO SCH ×2 (08:00→13:16)
[2020-09-27] MEDS: FLUoxetine 20mg capsule PO SCH (08:40)
[2020-09-27] MEDS: cyclobenzaprine 10mg tablet PO SCH ×2 (08:41→13:16)
[2020-09-27] MEDS: heparin, porcine 5000 units/ml vial SQ SCH (08:41)
[2020-09-27] MEDS: loratadine 10mg tablet PO SCH (08:41)
[2020-09-27] MEDS: docusate sod 100mg capsule PO SCH (08:41)
[2020-09-27] MEDS: fluticasone nasal spray 16GM bottle NS SCH (08:41)
[2020-09-27] MEDS: pantoprazole 40mg Tablet.DR PO SCH (08:49)
[2020-09-27] MEDS: budesonide 0.5mg/2ml UD nebule IH SCH (09:38)
[2020-09-27] MEDS: insulin Lispro (HumaLOG) vial - multi-dose SQ SCH (09:51)
[2020-09-27] MEDS: MESSAGE TO NURSING PO NR (10:00)
[2020-09-27] MEDS: normal saline 1000ml 1,000 ML IV SCH (10:10)
[2020-09-27] MEDS ORDERED: LANTUS SQ (11:31)
[2020-09-27] MEDS ORDERED: METR-159 PO (11:36)
[2020-09-27] MEDS ORDERED: CEFD300C3 PO (11:36)
[2020-09-27 12:00] VITALS: BP 133/66
--- NOTE | 2020-09-27 14:43 | NUR ---
Pt discharged home in stable condition. tolerating carb control diet well. IV removed with catheter intact. Discharge and medication instructions given to pt. hard copy of prescription for glucometer provided. Pt was escorted to main lobby on w/c, left the hospital via private vehicle accompanied by family member.
== END 2020-09-27 13:45 | disposition home or self-care (01) | DRG 282 ==
LOC: ER 06:42 → ED HOLD 11:51 → SUR 3N 14:11
PROVIDERS: ADMIT Family Medicine; ATTEND Family Medicine
PROC: BW211ZZ Computerized Tomography (CT Scan) of Abdomen and Pelvis using Low Osmolar Contrast (ICD-10-PCS; principal; 2020-09-25)
DX: K85.90 Acute pancreatitis without necrosis or infection, unspecified (principal); E78.00 Pure hypercholesterolemia, unspecified; E78.5 Hyperlipidemia, unspecified; I10 Essential (primary) hypertension; I25.10 Atherosclerotic heart disease of native coronary artery without angina pectoris; J44.9 Chronic obstructive pulmonary disease, unspecified; E11.65 Type 2 diabetes mellitus with hyperglycemia; F32.9 Major depressive disorder, single episode, unspecified; G89.29 Other chronic pain; K21.9 Gastro-esophageal reflux disease without esophagitis; I25.2 Old myocardial infarction; Z87.891 Personal history of nicotine dependence; Z88.2 Allergy status to sulfonamides
CPT/HCPCS: 36415; 74176; 74177; 74181; 76937; 80053; 80061; 80305; 80320; 81001; 82150; 82948; 83036; 83690; 84145; 84443; 85025; 85027; 87081; 94640; 94760; 96374; 99285; C9113; G0378; J0780; J1170; J1644; J1815; J2060; J2270; J2405; J2543; J3010; J7030; J7626; Q9963; Q9967

== ENCOUNTER 2020-09-29 05:46 | Emergency (ER) | payer MEDICAID ==
[~2020-09-29] VITALS: Ht 160 cm; Wt 79.5 kg
[~2020-09-29 05:46] MED LIST changes: +ALBU17AE26 PO; -ATOR20TA PO; +BECL10.6 PO; +BUSP10TA3 PO; +CEFD300C3 PO; -CEPH-571 PO; +CYCL-1 PO; +DOCU-22 PO; -DOXY100C43 PO; +FLUO-10 PO; +GLIM4TAB7 PO; -INSU100V12 SQ; +LANTUS SQ; -LIDO20SO16 PO; +LORA10TA7 PO; -METF500T PO; +METR-159 PO; -MONT10TA21 PO; +OMEP-50 PO; -QUET-1 PO; +QUET100T33 PO; +ROPI2TAB7 PO; +SIMV-45 PO
[2020-09-29 05:52] VITALS: BP 147/86
[2020-09-29] MEDS ORDERED: magnesium citrate 296ml oral solution PO ONE (06:25)
== END 2020-09-29 06:47 | disposition home or self-care (01) ==
LOC: ER 05:47
DX: K59.00 Constipation, unspecified (principal); I11.9 Hypertensive heart disease without heart failure; E78.00 Pure hypercholesterolemia, unspecified; J44.9 Chronic obstructive pulmonary disease, unspecified; E11.9 Type 2 diabetes mellitus without complications; G89.29 Other chronic pain; F32.9 Major depressive disorder, single episode, unspecified
CPT/HCPCS: 74018; 99283

== ENCOUNTER 2020-10-27 13:15 | Emergency (ER) | payer MEDICAID ==
[~2020-10-27] VITALS: Ht 160 cm; Wt 70.0 kg
[~2020-10-27 13:15] MED LIST changes: -METR-159 PO
[2020-10-27 14:00] LABS: BASOPHILS % (AUTO) 0.2 % (0-1)
[2020-10-27 14:01] LABS: EOSINOPHILS # (AUTO) 0.4 X10'3 (0-0.9); EOSINOPHILS % (AUTO) 4.1 % (0-6); HEMATOCRIT 37.4 % (35.0-45.0); HEMOGLOBIN 11.9 g/dl (12.0-16.0); LYMPHOCYTES # (AUTO) 2.5 X10'3 (1.1-4.8); LYMPHOCYTES % (AUTO) 28.4 % (21-51); MEAN CORPUSCULAR HEMOGLOBIN 24.9 PG (27.0-31.0); MEAN CORPUSCULAR HGB CONC 31.9 g/dL (33.0-36.5); MEAN CORPUSCULAR VOLUME 77.9 FL (78-98); MEAN PLATELET VOLUME 8.7 FL (7.4-10.4); MONOCYTES # (AUTO) 0.6 X10'3 (0-0.9); MONOCYTES % (AUTO) 6.8 % (2-12); NEUTROPHILS # (AUTO) 5.3 X10'3 (1.8-7.7); NEUTROPHILS % (AUTO) 60.5 % (42-75); PLATELET COUNT 405 X10'3 (140-440); RED CELL DISTRIBUTION WIDTH 17.1 % (11.5-14.5); WHITE BLOOD COUNT 8.7 X10'3 (4.5-11.0)
--- NOTE | 2020-10-27 15:26 | NUR ---
Pt ambulated to the restroom without any difficulty.
[2020-10-27 15:48] LABS: CLARITY,URINE SLIGHTLY CLOUDY (Clear); COLOR,URINE YELLOW (Yellow); GLUCOSE, URINE NEGATIVE (Neg); KETONES,URINE 15 mg/dl (Neg); LEUKOCYTE ESTERASE ,URINE NEGATIVE (Neg); NITRITES, URINE NEGATIVE (Neg); OCCULT BLOOD,URINE NEGATIVE (Neg); PROTEIN,URINE NEGATIVE (Neg); URINE HCG NEGATIVE (NEG)
[2020-10-27 15:49] LABS: UA COLLECTION TYPE CLN CATCH MIDSTREAM
[2020-10-27 15:56] LABS: MUCUS STRANDS FEW /LPF (Neg); SQUAMOUS EPITHELIAL CELL,UR MODERATE /LPF (FEW)
[2020-10-27 15:57] LABS: WBC,URINE 0-4 /HPF (0-4)
[2020-10-27 15:58] LABS: BACTERIA,URINE NONE SEEN /HPF (Neg); RBC,URINE 0-2 /HPF (0-2); YEAST FEW /HPF (NEGATIVE)
[2020-10-27] MEDS ORDERED: normal saline 1000ML IV soln IVB ONE (16:00)
[2020-10-27] MEDS ORDERED: morphine 4 MG/ML inj SYRINge IV ONE (16:00)
[2020-10-27] MEDS ORDERED: ondansetron/PF 4mg/2ml inj IV ONE (16:00)
[2020-10-27 16:15] LABS: ALANINE AMINOTRANSFERASE 27 U/L (12-78); ALBUMIN 2.6 G/DL (3.4-5.0); ALBUMIN/GLOBULIN RATIO 0.6 (1.1-1.5); ALKALINE PHOSPHATASE 112 IU/L (46-116); AMYLASE 36 U/L (25-115); ANION GAP 12 (8-16); ASPARTATE AMINO TRANSFERASE 48 U/L (10-37); BILIRUBIN,TOTAL 0.4 MG/DL (0.1-1.0); BLOOD UREA NITROGEN 4 MG/DL (7-18); CALCIUM 9.2 MG/DL (8.5-10.1); CHLORIDE 102 MMOL/L (99-107); CREATININE 0.67 MG/DL (0.40-0.90); GLUCOSE 149 MG/DL (70-104); LIPASE 81 U/L (73-393); POTASSIUM 3.6 MMOL/L (3.5-5.1); SODIUM 138 MMOL/L (135-145); TOTAL CARBON DIOXIDE 24.2 MMOL/L (24-32); eGFR 90 ML/MIN
[2020-10-27 17:51] VITALS: BP 161/69
== END 2020-10-27 17:53 | disposition home or self-care (01) ==
LOC: ER 13:16
DX: R10.84 Generalized abdominal pain (principal); K86.1 Other chronic pancreatitis; I25.10 Atherosclerotic heart disease of native coronary artery without angina pectoris; E78.00 Pure hypercholesterolemia, unspecified; I10 Essential (primary) hypertension; I25.2 Old myocardial infarction; J44.9 Chronic obstructive pulmonary disease, unspecified; K21.9 Gastro-esophageal reflux disease without esophagitis; E11.9 Type 2 diabetes mellitus without complications; G89.29 Other chronic pain; F32.9 Major depressive disorder, single episode, unspecified; Z98.51 Tubal ligation status; Z98.890 Other specified postprocedural states; Z60.2 Problems related to living alone; Z88.1 Allergy status to other antibiotic agents; Z88.8 Allergy status to other drugs, medicaments and biological substances; Z79.2 Long term (current) use of antibiotics; Z79.4 Long term (current) use of insulin; Z79.899 Other long term (current) drug therapy
CPT/HCPCS: 80053; 81001; 81025; 82150; 83690; 85025; 96361; 96374; 96375; 99284; J2270; J2405; J7030

== ENCOUNTER 2021-01-29 20:40 | Inpatient (IN) | payer MEDICAID ==
[~2021-01-29] VITALS: Ht 157.5 cm; Wt 68.6 kg
[~2021-01-29 20:40] MED LIST changes: -CEFD300C3 PO; -LANTUS SQ
[2021-01-29 21:19] LABS: URINE HCG NEGATIVE (NEG)
[2021-01-29 21:20] LABS: CLARITY,URINE CLEAR (Clear); COLOR,URINE STRAW (Yellow); GLUCOSE, URINE >=1000 mg/dl (Neg); KETONES,URINE NEGATIVE (Neg); LEUKOCYTE ESTERASE ,URINE NEGATIVE (Neg); NITRITES, URINE NEGATIVE (Neg); OCCULT BLOOD,URINE NEGATIVE (Neg); PROTEIN,URINE NEGATIVE (Neg); UROBILINOGEN,URINE 0.2 E.U/dL (0.2-1.0)
[2021-01-29 21:20] LABS: BASOPHILS # (AUTO) 0.1 X10'3 (0-0.2); BASOPHILS % (AUTO) 1.2 % (0-1); EOSINOPHILS # (AUTO) 0.2 X10'3 (0-0.9); EOSINOPHILS % (AUTO) 2.2 % (0-6); HEMATOCRIT 41.4 % (35.0-45.0); HEMOGLOBIN 13.3 g/dl (12.0-16.0); LYMPHOCYTES # (AUTO) 2.4 X10'3 (1.1-4.8); LYMPHOCYTES % (AUTO) 29.6 % (21-51); MEAN CORPUSCULAR HEMOGLOBIN 24.5 PG (27.0-31.0); MEAN CORPUSCULAR VOLUME 76.6 FL (78-98); MEAN PLATELET VOLUME 8.6 FL (7.4-10.4); MONOCYTES # (AUTO) 0.5 X10'3 (0-0.9); MONOCYTES % (AUTO) 5.8 % (2-12); NEUTROPHILS # (AUTO) 5.1 X10'3 (1.8-7.7); NEUTROPHILS % (AUTO) 61.2 % (42-75); PLATELET COUNT 286 X10'3 (140-440); RED BLOOD COUNT 5.41 X10'6 (4.20-5.60); RED CELL DISTRIBUTION WIDTH 17.2 % (11.5-14.5); WHITE BLOOD COUNT 8.3 X10'3 (4.5-11.0)
[2021-01-29 21:31] LABS: UA COLLECTION TYPE CLN CATCH MIDSTREAM
[2021-01-29 21:32] LABS: BACTERIA,URINE NONE SEEN /HPF (Neg); RBC,URINE NONE SEEN /HPF (0-2); SQUAMOUS EPITHELIAL CELL,UR FEW /LPF (FEW); WBC,URINE NONE SEEN /HPF (0-4)
[2021-01-29 21:32] LABS: ALANINE AMINOTRANSFERASE 14 U/L (12-78); ALBUMIN 3.2 G/DL (3.4-5.0); ALBUMIN/GLOBULIN RATIO 0.8 (1.1-1.5); ALKALINE PHOSPHATASE 179 IU/L (46-116); ANION GAP 11 (8-16); ASPARTATE AMINO TRANSFERASE 11 U/L (10-37); BILIRUBIN,TOTAL 0.2 MG/DL (0.1-1.0); BLOOD UREA NITROGEN 17 MG/DL (7-18); BUN/CREATININE RATIO 16.5 (6.6-38.0); CALCIUM 9.4 MG/DL (8.5-10.1); CHLORIDE 96 MMOL/L (99-107); CREATININE 1.03 MG/DL (0.40-0.90); LIPASE 148 U/L (73-393); POTASSIUM 4.1 MMOL/L (3.5-5.1); SODIUM 129 MMOL/L (135-145); TOTAL CARBON DIOXIDE 22.3 MMOL/L (24-32); TOTAL PROTEIN 7.3 G/DL (6.4-8.2); eGFR 55 ML/MIN
[2021-01-29 21:38] LABS: GLUCOSE 560 MG/DL (70-104)
[2021-01-29] MEDS ORDERED: normal saline 1000ML IV soln IVB ONE (22:25)
[2021-01-29] MEDS ORDERED: morphine 4 MG/ML inj SYRINge IV ONE (22:25)
[2021-01-29] MEDS ORDERED: ondansetron/PF 4mg/2ml inj IV ONE (22:25)
[2021-01-29] MEDS ORDERED: insulin regular, human 10 units/0.1 ml syringe IV ONE (22:25)
[2021-01-29] MEDS ORDERED: insulin regular, human U-100 3ml vial - multi-dose IV ONE (22:30)
--- NOTE | 2021-01-29 22:31 | NUR ---
pt ambulatory to restroom
--- NOTE | 2021-01-29 22:45 | NUR ---
To CT via wheelchair
[2021-01-29] MEDS ORDERED: LIPA1CAP32 PO (23:56)
[2021-01-29] MEDS ORDERED: POLY510P31 PO (23:56)
[2021-01-29] MEDS ORDERED: INSU100I31 SQ (23:56)
[2021-01-30] MEDS ORDERED: morphine 2 MG/ML inj. syringe IV PRN (02:00)
[2021-01-30] MEDS ORDERED: potassium Cl 40MEQ/1/2NS 520ml 520 ML IV PRN ×2 (02:00)
[2021-01-30] MEDS ORDERED: glucagon, human recombinant 1mg kit SUBCUT PRN (02:05)
[2021-01-30] MEDS ORDERED: dextrose 50%-water 50ml dispensing syringe IV PRN ×2 (02:05)
[2021-01-30] MEDS ORDERED: dextrose ORAL solution 15 GM/59 ML bottle PO PRN ×2 (02:05)
[2021-01-30] MEDS ORDERED: naloxone 0.4 mg/ml inj IV PRN (02:05)
[2021-01-30] MEDS ORDERED: MESSAGE TO PHARMACY PO ONE (02:05)
[2021-01-30] MEDS ORDERED: CADD PCA waste documentation MC PRN (02:05)
[2021-01-30] MEDS ORDERED: albuterol 2.5 MG/3 ML nebule NEB PRN (02:25)
[2021-01-30 02:36] LABS: TRIGLYCERIDES 182 MG/DL (20-135)
--- NOTE | 2021-01-30 03:47 | NUR ---
at 0330 patients BG was 75, she alerted me she felt shaky and her monitor said 72. I gave her 25 of dextrose and left JERILYN Knox on surgical know to recheck in 15min.
[2021-01-30 04:00] VITALS: BP 130/58
[2021-01-30] MEDS: morphine/NS 5 mg/ml CADD 50 ML IV SCH ×11 (04:07→23:00)
[2021-01-30] MEDS: normal saline 1000ml 1,000 ML IV SCH ×4 (04:09→23:37)
--- NOTE | 2021-01-30 06:27 | NUR ---
Problems reprioritized. Patient report given, questions answered & plan of care reviewed with SHARITA.
--- NOTE | 2021-01-30 06:49 | NUR ---
Patient in room [facility]. I have received report from Germania JEAN-BAPTISTE and had the opportunity to ask questions and assume patient care.
[2021-01-30 07:00] VITALS: BP 118/54
[2021-01-30] MEDS: K and/or MAG REPLACEMENT MC SCH ×2 (08:00→20:00)
[2021-01-30] MEDS: FLUoxetine 20mg capsule PO SCH (09:29)
[2021-01-30] MEDS: heparin, porcine 5000 units/ml vial SQ SCH ×2 (09:31→20:16)
[2021-01-30 11:00] VITALS: BP 130/64
[2021-01-30] MEDS: fluticasone nasal spray 16GM bottle NS SCH (11:22)
--- NOTE | 2021-01-30 11:39 | NUR ---
Malnutrition/DM consult: Pt seen at bedside reports weighing 178 lbs in August 2020 with current wt being 151 lbs, however UBW is around 145 lbs. Pt with documented wt of 151 lbs at August 2020 admit as well as current admit. Pt currently NPO however endorses a good appetite stating she is (always) starving. Pt with no visible muscle or fat wasting. No documented significant decrease in muscle strength or edema. Pt currently lacks a minimum of two criteria for malnutrition. Pt with T2DM with A1c 12.0%, up from 11.7% in August 2020 per records. Pt reports seeing an MD q 3 months for DM management and takes her insulin per rx which is 14 units in the morning and in the evening. Noted that Metformin was discontinued previously per H&P. Pt has a Dexcom CGM for BG checks. Pt reports A1c previously 9.4% a few months ago and attributes increased A1c to being stressed and sick. Pt provided with written and verbal DM education with RD contact information. Pt confirms allergy to lianet and papaya and denies any other food allergies. Pt reports some difficulty chewing secondary to missing upper teeth however denies need for texture modification with diet advancement. Pt reports frequent constipation secondary to Pancreaze and states she takes Miralax q morning. RD encouraged pt to inform RN. Will continue to follow. Addendum: 01/30/21 at [address] Amended: Links added. 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 Pt states she currently does not follow any special diet for DM management.
[2021-01-30] MEDS: ondansetron/PF 4mg/2ml inj IV PRN (15:35)
[2021-01-30 18:00] VITALS: BP 135/58
--- NOTE | 2021-01-30 18:49 | NUR ---
Problems reprioritized. Patient report given, questions answered & plan of care reviewed with Ramy JEAN-BAPTISTE.
--- NOTE | 2021-01-30 18:58 | NUR ---
I have received report from JERILYN Hood and had the opportunity to ask questions and assume patient care.
[2021-01-30] MEDS ORDERED: temazepam 15mg capsule PO PRN (19:55)
[2021-01-30] MEDS: acetaminophen 325mg tablet PO PRN (20:15)
[2021-01-30] MEDS: insulin glargine (Lantus) pen - multi-dose SQ SCH (21:00)
[2021-01-31 00:21] VITALS: BP 115/71
[2021-01-31] MEDS: morphine/NS 5 mg/ml CADD 50 ML IV SCH ×4 (01:00→07:00)
--- NOTE | 2021-01-31 06:33 | NUR ---
Problems reprioritized. Patient report given, questions answered & plan of care reviewed with JERILYN Hernández.
--- NOTE | 2021-01-31 07:02 | NUR ---
Patient in room [facility]. I have received report from JERILYN Mccann and had the opportunity to ask questions and assume patient care.
--- NOTE | 2021-01-31 07:59 | NUR ---
I have received report from Ramy JEAN-BAPTISTE, and was able to ask questions and assume care of the patient
[2021-01-31 08:00] VITALS: BP 135/71
[2021-01-31] MEDS: K and/or MAG REPLACEMENT MC SCH ×2 (08:00→19:21)
[2021-01-31 08:16] LABS: ALANINE AMINOTRANSFERASE 12 U/L (12-78); ALBUMIN 2.6 G/DL (3.4-5.0); ALBUMIN/GLOBULIN RATIO 0.8 (1.1-1.5); ALKALINE PHOSPHATASE 96 IU/L (46-116); ANION GAP 10 (8-16); ASPARTATE AMINO TRANSFERASE 18 U/L (10-37); BILIRUBIN,TOTAL 0.2 MG/DL (0.1-1.0); BLOOD UREA NITROGEN 8 MG/DL (7-18); BUN/CREATININE RATIO 14.5 (6.6-38.0); CHLORIDE 106 MMOL/L (99-107); CREATININE 0.55 MG/DL (0.40-0.90); GLUCOSE 183 MG/DL (70-104); POTASSIUM 3.9 MMOL/L (3.5-5.1); SODIUM 137 MMOL/L (135-145); TOTAL CARBON DIOXIDE 21.1 MMOL/L (24-32); eGFR > 90 ML/MIN
[2021-01-31] MEDS: FLUoxetine 20mg capsule PO SCH (08:21)
[2021-01-31] MEDS: fluticasone nasal spray 16GM bottle NS SCH (08:23)
[2021-01-31] MEDS: heparin, porcine 5000 units/ml vial SQ SCH ×2 (08:23→19:17)
[2021-01-31] MEDS: ondansetron/PF 4mg/2ml inj IV PRN (08:30)
[2021-01-31] MEDS: normal saline 1000ml 1,000 ML IV SCH ×2 (09:01→17:31)
[2021-01-31 09:02] LABS: BASOPHILS # (AUTO) 0.1 X10'3 (0-0.2); BASOPHILS % (AUTO) 0.8 % (0-1); EOSINOPHILS # (AUTO) 0.1 X10'3 (0-0.9); EOSINOPHILS % (AUTO) 1.6 % (0-6); HEMATOCRIT 38.1 % (35.0-45.0); HEMOGLOBIN 12.3 g/dl (12.0-16.0); LYMPHOCYTES # (AUTO) 1.7 X10'3 (1.1-4.8); LYMPHOCYTES % (AUTO) 19.9 % (21-51); MEAN CORPUSCULAR HEMOGLOBIN 24.5 PG (27.0-31.0); MEAN CORPUSCULAR HGB CONC 32.4 g/dL (33.0-36.5); MEAN CORPUSCULAR VOLUME 75.7 FL (78-98); MEAN PLATELET VOLUME 7.9 FL (7.4-10.4); MONOCYTES # (AUTO) 0.5 X10'3 (0-0.9); MONOCYTES % (AUTO) 6.1 % (2-12); NEUTROPHILS # (AUTO) 6.2 X10'3 (1.8-7.7); NEUTROPHILS % (AUTO) 71.6 % (42-75); PLATELET COUNT 283 X10'3 (140-440); RED BLOOD COUNT 5.03 X10'6 (4.20-5.60); WHITE BLOOD COUNT 8.6 X10'3 (4.5-11.0)
--- NOTE | 2021-01-31 09:41 | NUR ---
PAGER ID: [phone] MESSAGE: [facility]. [id number]. Pt Neal Rm: 356-B. Pt is anxious. Requesting medication to calm her down. Thanks Addendum: 01/31/21 at 1019 by Princess Maddox RN new order to stop MS CADD and give Ativan PO 30 min after stopping CADD. CADD was stopped at 1010.
[2021-01-31] MEDS ORDERED: morphine 2 MG/ML inj. syringe IV PRN (09:55)
[2021-01-31] MEDS ORDERED: LORazepam 1 MG tablet PO ONE (09:55)
[2021-01-31 11:27] VITALS: BP 126/62
--- NOTE | 2021-01-31 12:00 | NUR ---
Patient in room [facility] 356B. I have received report from Linette Student Nurse and had the opportunity to ask questions and assume patient care.
[2021-01-31] MEDS ORDERED: LORazepam 1 MG tablet PO PRN (12:50)
--- NOTE | 2021-01-31 13:08 | NUR ---
Entered patient room, patient was eating crackers patient diet order was advanced to clear liquids only. Primary nurse notified. Educated patient on new diet order, patient stated " I understand".
[2021-01-31] MEDS: insulin Lispro (HumaLOG) vial - multi-dose SQ SCH ×3 (14:05→21:34)
[2021-01-31 15:42] VITALS: BP 128/47
[2021-01-31 15:56] VITALS: BP 104/65
--- NOTE | 2021-01-31 15:57 | NUR ---
Patients blood pressure was 128/47, and we rechecked it 104/65. patient is resting comfortably with no complaints. Primary nurse notified. Addendum: 01/31/21 at 1558 by Ondina HARRISON Amended: Links added.
[2021-01-31] MEDS: traMADol 50MG tablet PO PRN (17:32)
[2021-01-31 18:00] VITALS: BP 128/57
--- NOTE | 2021-01-31 18:31 | NUR ---
Problems reprioritized. Patient report given, questions answered & plan of care reviewed with JERILYN Mccann. Pt tolerating Clear liquid diet well. No c/o nausea.
--- NOTE | 2021-01-31 18:46 | NUR ---
Patient in room [facility]. I have received report from Princess JEAN-BAPTISTE and had the opportunity to ask questions and assume patient care. Jonah JEAN-BAPTISTE
[2021-01-31] MEDS ORDERED: ROPINIRole 1mg tablet PO SCH (21:00)
[2021-01-31] MEDS: acetaminophen 325mg tablet PO PRN (21:27)
[2021-01-31] MEDS: insulin glargine (Lantus) pen - multi-dose SQ SCH (21:38)
--- NOTE | 2021-01-31 23:32 | NUR ---
Student documentation: I have reviewed all interventions, assessments performed and documented by Betty Orozco. Student Medication Administration: For this medication-pass time frame, all medication were reviewed, dispensed, administered and documented per hospital policy by Betty Orozco.
[2021-02-01 00:03] VITALS: BP 114/58
[2021-02-01] MEDS: ondansetron/PF 4mg/2ml inj IV PRN (03:04)
[2021-02-01] MEDS: traMADol 50MG tablet PO PRN (03:05)
[2021-02-01] MEDS: normal saline 1000ml 1,000 ML IV SCH (03:10)
[2021-02-01] MEDS ORDERED: proCHLORperazine 10 MG/2 ml inj IV ONE (03:55)
--- NOTE | 2021-02-01 06:24 | NUR ---
I agree with assessments, medication administration, documentation of JERILYN Mckenzie. I also agree with the report given to JERILYN Lopez
--- NOTE | 2021-02-01 06:25 | NUR ---
Problems reprioritized. Patient report given, questions answered & plan of care reviewed with Jessica JEAN-BAPTISTE. Jonah JEAN-BAPTISTE
--- NOTE | 2021-02-01 06:32 | NUR ---
Patient in room [facility] 356-B. I have received report from JERILYN Lopez and had the opportunity to ask questions and assume patient care.
--- NOTE | 2021-02-01 06:40 | NUR ---
Patient in room [facility]. I have received report from Jonah JEAN-BAPTISTE and had the opportunity to ask questions and assume patient care.
[2021-02-01 07:00] VITALS: BP 128/59
[2021-02-01 07:00] LABS: BASOPHILS % (AUTO) 0.7 % (0-1); EOSINOPHILS # (AUTO) 0.1 X10'3 (0-0.9); EOSINOPHILS % (AUTO) 1.6 % (0-6); HEMATOCRIT 33.7 % (35.0-45.0); HEMOGLOBIN 10.9 g/dl (12.0-16.0); LYMPHOCYTES # (AUTO) 1.7 X10'3 (1.1-4.8); LYMPHOCYTES % (AUTO) 24.6 % (21-51); MEAN CORPUSCULAR HEMOGLOBIN 24.6 PG (27.0-31.0); MEAN CORPUSCULAR HGB CONC 32.3 g/dL (33.0-36.5); MEAN CORPUSCULAR VOLUME 76.1 FL (78-98); MEAN PLATELET VOLUME 8.3 FL (7.4-10.4); MONOCYTES # (AUTO) 0.4 X10'3 (0-0.9); MONOCYTES % (AUTO) 6.2 % (2-12); NEUTROPHILS # (AUTO) 4.6 X10'3 (1.8-7.7); NEUTROPHILS % (AUTO) 66.9 % (42-75); PLATELET COUNT 248 X10'3 (140-440); RED BLOOD COUNT 4.43 X10'6 (4.20-5.60); RED CELL DISTRIBUTION WIDTH 16.9 % (11.5-14.5); WHITE BLOOD COUNT 6.9 X10'3 (4.5-11.0)
[2021-02-01 07:17] LABS: ALANINE AMINOTRANSFERASE 12 U/L (12-78); ALBUMIN 2.4 G/DL (3.4-5.0); ALBUMIN/GLOBULIN RATIO 0.8 (1.1-1.5); ALKALINE PHOSPHATASE 83 IU/L (46-116); ANION GAP 9 (8-16); ASPARTATE AMINO TRANSFERASE 11 U/L (10-37); BILIRUBIN,TOTAL 0.3 MG/DL (0.1-1.0); BLOOD UREA NITROGEN 7 MG/DL (7-18); BUN/CREATININE RATIO 10.9 (6.6-38.0); CALCIUM 8.3 MG/DL (8.5-10.1); CHLORIDE 109 MMOL/L (99-107); CREATININE 0.64 MG/DL (0.40-0.90); GLUCOSE 264 MG/DL (70-104); POTASSIUM 3.6 MMOL/L (3.5-5.1); SODIUM 140 MMOL/L (135-145); TOTAL CARBON DIOXIDE 22.4 MMOL/L (24-32); TOTAL PROTEIN 5.5 G/DL (6.4-8.2); eGFR > 90 ML/MIN
[2021-02-01] MEDS ORDERED: pantoprazole 40mg Tablet.DR PO SCH (07:30)
[2021-02-01 07:32] VITALS: BP 133/86
[2021-02-01] MEDS: FLUoxetine 20mg capsule PO SCH (07:44)
[2021-02-01] MEDS: acetaminophen 325mg tablet PO PRN (07:45)
[2021-02-01] MEDS: heparin, porcine 5000 units/ml vial SQ SCH (07:47)
[2021-02-01] MEDS: fluticasone nasal spray 16GM bottle NS SCH (07:47)
[2021-02-01] MEDS: K and/or MAG REPLACEMENT MC SCH (08:00)
[2021-02-01] MEDS: insulin Lispro (HumaLOG) vial - multi-dose SQ SCH (10:04)
[2021-02-01] MEDS ORDERED: TRAM50TA2 PO (10:30)
[2021-02-01 11:00] VITALS: BP 130/59
--- NOTE | 2021-02-01 11:49 | NUR ---
Patient was educated on worsening symptoms, medications, and follow-up care including A1C. IV was removed and canula was intact. Home medications were retrieved from the pharmacy and sent with patient. She was taken down by wheel chair to her ride.
[2021-02-01] MEDS ORDERED: ROPINIRole 1mg tablet PO SCH (21:00)
--- NOTE | 2021-02-02 15:43 | NUR ---
CASE MANAGEMENT DISCHARGE FOLLOW UP: T/c to pt, no answer, left message requesting callback. Addendum: 02/02/21 at 1611 by Kamila Guadalupe RN [phone] Received return call from pt. Reports that she is not doing too good, rates abdominal pain 8/10, nothing helps with pain including tramadol. States while was in hospital that she didn't use CADD pump often as she did not want to get addicted to it, but that it was helping and when they turned it off her pain got worse again. Pt denies N/V, fevers/chills. Pt states that she does not have much of an appetite, drinking water, not eating very much. Verbalizes understanding of s/sx requiring further evaluation/emergent assistance. Verbalizes understanding of new and current medications, states tramadol ineffective for pain control. Verbalizes compliance with MD discharge instructions. Verbalizes understanding of the importance in making/keeping follow-up appointments, states cannot get into see PMD until February 27, cannot get through to PMD office to get earlier appt, will try to assist patient. Pt states that she was told by discharging MD that she was never going to get surgery and that she needs to eat less. Pt knows that she should come back to hospital for intractable pain, worsening symptoms, however states that she is being told that there is nothing that can be done for her. Pt wants to see PMD to get referral to specialist. Pt states that since August last year when her symptoms started that she hardly has any good days. Pt states that she is receiving another call, interview ended at this time. 1603 T/c to [facility], no answer.
== END 2021-02-01 11:33 | disposition home or self-care (01) | DRG 282 ==
LOC: ER 20:40 → ED HOLD 01-30 02:00 → SUR 3N 01-30 04:00
PROVIDERS: ADMIT Internal Medicine; ATTEND Internal Medicine
DX: K85.91 Acute pancreatitis with uninfected necrosis, unspecified (principal); E11.65 Type 2 diabetes mellitus with hyperglycemia; E87.1 Hypo-osmolality and hyponatremia; K52.9 Noninfective gastroenteritis and colitis, unspecified; E78.00 Pure hypercholesterolemia, unspecified; E86.0 Dehydration; F32.9 Major depressive disorder, single episode, unspecified; F81.9 Developmental disorder of scholastic skills, unspecified; G89.29 Other chronic pain; J44.9 Chronic obstructive pulmonary disease, unspecified; G25.81 Restless legs syndrome; K86.1 Other chronic pancreatitis; I10 Essential (primary) hypertension; K21.9 Gastro-esophageal reflux disease without esophagitis; I25.10 Atherosclerotic heart disease of native coronary artery without angina pectoris; I25.2 Old myocardial infarction; Z79.4 Long term (current) use of insulin
CPT/HCPCS: 36415; 74176; 76700; 80053; 81001; 81025; 82948; 83036; 83690; 84478; 85025; 87081; 94760; 96374; 96375; 99285; G0378; J0780; J1644; J1815; J2270; J2405; J7030

== ENCOUNTER 2021-02-23 17:00 | Emergency (ER) | payer MEDICAID ==
[~2021-02-23] VITALS: Ht 157.5 cm; Wt 68.4 kg
[~2021-02-23 17:00] MED LIST changes: -BECL10.6 PO; -BUSP10TA3 PO; -CYCL-1 PO; -GLIM4TAB7 PO; +INSU100I31 SQ; +LIPA1CAP32 PO; -LORA10TA7 PO; -OMEP-50 PO; +POLY510P31 PO; -SIMV-45 PO; +TRAM50TA2 PO
[2021-02-23 18:06] LABS: BASOPHILS % (AUTO) 0.3 % (0-1); EOSINOPHILS # (AUTO) 0.3 X10'3 (0-0.9); EOSINOPHILS % (AUTO) 2.6 % (0-6); HEMATOCRIT 42.5 % (35.0-45.0); LYMPHOCYTES # (AUTO) 2.3 X10'3 (1.1-4.8); LYMPHOCYTES % (AUTO) 21.8 % (21-51); MEAN CORPUSCULAR HEMOGLOBIN 25.5 PG (27.0-31.0); MEAN CORPUSCULAR VOLUME 77.2 FL (78-98); MEAN PLATELET VOLUME 8.1 FL (7.4-10.4); MONOCYTES # (AUTO) 0.5 X10'3 (0-0.9); MONOCYTES % (AUTO) 4.7 % (2-12); NEUTROPHILS # (AUTO) 7.6 X10'3 (1.8-7.7); NEUTROPHILS % (AUTO) 70.6 % (42-75); PLATELET COUNT 299 X10'3 (140-440); RED BLOOD COUNT 5.51 X10'6 (4.20-5.60); RED CELL DISTRIBUTION WIDTH 17.5 % (11.5-14.5); WHITE BLOOD COUNT 10.7 X10'3 (4.5-11.0)
[2021-02-23 18:15] LABS: URINE HCG NEGATIVE (NEG)
[2021-02-23 18:16] LABS: CLARITY,URINE CLEAR (Clear); COLOR,URINE YELLOW (Yellow); GLUCOSE, URINE >=1000 mg/dl (Neg); KETONES,URINE TRACE mg/dl (Neg); LEUKOCYTE ESTERASE ,URINE NEGATIVE (Neg); NITRITES, URINE NEGATIVE (Neg); OCCULT BLOOD,URINE NEGATIVE (Neg); PROTEIN,URINE NEGATIVE (Neg); UA COLLECTION TYPE CLN CATCH MIDSTREAM
[2021-02-23 18:20] LABS: ALBUMIN 3.3 G/DL (3.4-5.0); ANION GAP 12 (8-16); BILIRUBIN,TOTAL 0.2 MG/DL (0.1-1.0); BLOOD UREA NITROGEN 20 MG/DL (7-18); BUN/CREATININE RATIO 19.2 (6.6-38.0); CALCIUM 8.6 MG/DL (8.5-10.1); CHLORIDE 98 MMOL/L (99-107); CREATININE 1.04 MG/DL (0.40-0.90); POTASSIUM 4.4 MMOL/L (3.5-5.1); SODIUM 133 MMOL/L (135-145); TOTAL CARBON DIOXIDE 22.7 MMOL/L (24-32); TOTAL PROTEIN 7.2 G/DL (6.4-8.2); eGFR 54 ML/MIN
[2021-02-23 18:21] LABS: ALANINE AMINOTRANSFERASE 24 U/L (12-78); ALBUMIN/GLOBULIN RATIO 0.8 (1.1-1.5); ALKALINE PHOSPHATASE 198 IU/L (46-116); AMYLASE 46 U/L (25-115); ASPARTATE AMINO TRANSFERASE 13 U/L (10-37); LIPASE 155 U/L (73-393)
[2021-02-23 18:22] LABS: RBC,URINE NONE SEEN /HPF (0-2); WBC,URINE 0-4 /HPF (0-4)
[2021-02-23 18:23] LABS: BACTERIA,URINE NONE SEEN /HPF (Neg); MUCUS STRANDS NONE SEEN /LPF (Neg); SQUAMOUS EPITHELIAL CELL,UR FEW /LPF (FEW)
[2021-02-23 18:27] LABS: GLUCOSE 452 MG/DL (70-104)
[2021-02-23] MEDS ORDERED: normal saline 1000ml 1,000 ML IV ONE (19:25)
[2021-02-23] MEDS ORDERED: morphine 4 MG/ML inj SYRINge IV ONE (19:25)
[2021-02-23 20:26] VITALS: BP 136/64
== END 2021-02-23 20:28 | disposition home or self-care (01) ==
LOC: ER 17:00
DX: K86.1 Other chronic pancreatitis (principal); R10.84 Generalized abdominal pain; I25.10 Atherosclerotic heart disease of native coronary artery without angina pectoris; E78.00 Pure hypercholesterolemia, unspecified; I10 Essential (primary) hypertension; I25.2 Old myocardial infarction; J44.9 Chronic obstructive pulmonary disease, unspecified; K21.9 Gastro-esophageal reflux disease without esophagitis; E11.9 Type 2 diabetes mellitus without complications; G89.29 Other chronic pain; Z98.51 Tubal ligation status; Z98.890 Other specified postprocedural states; Z60.2 Problems related to living alone; Z91.018 Allergy to other foods; Z88.1 Allergy status to other antibiotic agents; Z88.8 Allergy status to other drugs, medicaments and biological substances; Z79.4 Long term (current) use of insulin; Z79.899 Other long term (current) drug therapy
CPT/HCPCS: 36415; 80053; 81001; 81025; 82150; 83690; 85025; 96361; 96374; 99284; J2270; J7030

== ENCOUNTER 2021-03-08 18:12 | Emergency (ER) | payer MEDICAID ==
[~2021-03-08] VITALS: Ht 160 cm; Wt 68.0 kg
[2021-03-08 18:51] LABS: BASOPHILS # (AUTO) 0.1 X10'3 (0-0.2); BASOPHILS % (AUTO) 1.2 % (0-1); EOSINOPHILS # (AUTO) 0.1 X10'3 (0-0.9); EOSINOPHILS % (AUTO) 1.3 % (0-6); HEMATOCRIT 41.2 % (35.0-45.0); HEMOGLOBIN 13.4 g/dl (12.0-16.0); LYMPHOCYTES # (AUTO) 2.3 X10'3 (1.1-4.8); LYMPHOCYTES % (AUTO) 21.2 % (21-51); MEAN CORPUSCULAR HEMOGLOBIN 25.1 PG (27.0-31.0); MEAN CORPUSCULAR HGB CONC 32.6 g/dL (33.0-36.5); MEAN PLATELET VOLUME 7.8 FL (7.4-10.4); MONOCYTES # (AUTO) 0.5 X10'3 (0-0.9); MONOCYTES % (AUTO) 5.1 % (2-12); NEUTROPHILS # (AUTO) 7.6 X10'3 (1.8-7.7); NEUTROPHILS % (AUTO) 71.2 % (42-75); PLATELET COUNT 331 X10'3 (140-440); RED BLOOD COUNT 5.35 X10'6 (4.20-5.60); RED CELL DISTRIBUTION WIDTH 16.9 % (11.5-14.5); WHITE BLOOD COUNT 10.6 X10'3 (4.5-11.0)
[2021-03-08 19:02] LABS: ALANINE AMINOTRANSFERASE 22 U/L (12-78); ALBUMIN 3.4 G/DL (3.4-5.0); ALBUMIN/GLOBULIN RATIO 0.8 (1.1-1.5); ALKALINE PHOSPHATASE 137 IU/L (46-116); ANION GAP 11 (8-16); ASPARTATE AMINO TRANSFERASE 12 U/L (10-37); BILIRUBIN,TOTAL 0.4 MG/DL (0.1-1.0); BLOOD UREA NITROGEN 15 MG/DL (7-18); BUN/CREATININE RATIO 12.7 (6.6-38.0); CALCIUM 9.5 MG/DL (8.5-10.1); CHLORIDE 97 MMOL/L (99-107); CREATININE 1.18 MG/DL (0.40-0.90); LIPASE 164 U/L (73-393); POTASSIUM 3.6 MMOL/L (3.5-5.1); SODIUM 133 MMOL/L (135-145); TOTAL CARBON DIOXIDE 25.1 MMOL/L (24-32); TOTAL PROTEIN 7.5 G/DL (6.4-8.2); eGFR 47 ML/MIN
[2021-03-08 19:03] LABS: CLARITY,URINE CLEAR (Clear); COLOR,URINE YELLOW (Yellow); GLUCOSE, URINE >=1000 mg/dl (Neg); KETONES,URINE NEGATIVE (Neg); LEUKOCYTE ESTERASE ,URINE NEGATIVE (Neg); NITRITES, URINE NEGATIVE (Neg); OCCULT BLOOD,URINE NEGATIVE (Neg); PROTEIN,URINE NEGATIVE (Neg); UROBILINOGEN,URINE 0.2 E.U/dL (0.2-1.0)
[2021-03-08 19:05] LABS: GLUCOSE 475 MG/DL (70-104)
[2021-03-08 19:16] LABS: UA COLLECTION TYPE CLN CATCH MIDSTREAM
[2021-03-08 19:17] LABS: BACTERIA,URINE NONE SEEN /HPF (Neg); RBC,URINE NONE SEEN /HPF (0-2); SQUAMOUS EPITHELIAL CELL,UR FEW /LPF (FEW); WBC,URINE NONE SEEN /HPF (0-4)
[2021-03-08] MEDS ORDERED: insulin regular, human 10 units/0.1 ml syringe IV ONE (20:45)
[2021-03-08] MEDS ORDERED: insulin regular, human 10 units/0.1 ml syringe SQ ONE (20:45)
[2021-03-08] MEDS ORDERED: morphine 4 MG/ML inj SYRINge IV ONE ×2 (20:45→21:55)
[2021-03-08] MEDS ORDERED: albuterol 2.5 MG/3 ML nebule NEB ONE (21:20)
[2021-03-08] MEDS ORDERED: dextrose 50%-water 50ml dispensing syringe IV ONE ×2 (23:00)
[2021-03-08] MEDS ORDERED: fentaNYL/PF 50MCG/1 ML 2ML syringe IV ONE (23:15)
[2021-03-08] MEDS ORDERED: pantoprazole 40mg Tablet.DR PO ONE (23:15)
[2021-03-08] MEDS ORDERED: mag hydrox/Alum hydrox/simeth 30ml oral suspension PO ONE (23:15)
[2021-03-09 00:26] VITALS: BP 121/71
== END 2021-03-09 00:30 | disposition home or self-care (01) ==
LOC: ER 18:12
DX: K86.1 Other chronic pancreatitis (principal); E11.65 Type 2 diabetes mellitus with hyperglycemia; R11.2 Nausea with vomiting, unspecified; R10.13 Epigastric pain; I25.10 Atherosclerotic heart disease of native coronary artery without angina pectoris; E78.00 Pure hypercholesterolemia, unspecified; I10 Essential (primary) hypertension; I25.2 Old myocardial infarction; J44.9 Chronic obstructive pulmonary disease, unspecified; K21.9 Gastro-esophageal reflux disease without esophagitis; G89.29 Other chronic pain; Z98.51 Tubal ligation status; Z98.890 Other specified postprocedural states; Z60.2 Problems related to living alone; Z91.018 Allergy to other foods; Z88.1 Allergy status to other antibiotic agents; Z88.8 Allergy status to other drugs, medicaments and biological substances; Z79.4 Long term (current) use of insulin; Z79.899 Other long term (current) drug therapy
CPT/HCPCS: 36415; 80053; 81001; 82948; 83690; 85025; 94640; 96372; 96374; 96375; 96376; 99285; J1815; J2270; J3010; 94760

== ENCOUNTER 2021-03-27 15:29 | Emergency (ER) | payer MEDICAID ==
[~2021-03-27] VITALS: Ht 160 cm; Wt 68.6 kg
[2021-03-27 16:01] LABS: BASOPHILS # (AUTO) 0.1 X10'3 (0-0.2); BASOPHILS % (AUTO) 0.9 % (0-1); EOSINOPHILS # (AUTO) 0.1 X10'3 (0-0.9); EOSINOPHILS % (AUTO) 1.2 % (0-6); HEMATOCRIT 41.9 % (35.0-45.0); HEMOGLOBIN 13.6 g/dl (12.0-16.0); LYMPHOCYTES # (AUTO) 2.3 X10'3 (1.1-4.8); MEAN CORPUSCULAR HEMOGLOBIN 24.9 PG (27.0-31.0); MEAN CORPUSCULAR HGB CONC 32.4 g/dL (33.0-36.5); MEAN CORPUSCULAR VOLUME 76.8 FL (78-98); MONOCYTES # (AUTO) 0.5 X10'3 (0-0.9); MONOCYTES % (AUTO) 4.9 % (2-12); NEUTROPHILS # (AUTO) 7.3 X10'3 (1.8-7.7); PLATELET COUNT 307 X10'3 (140-440); RED BLOOD COUNT 5.45 X10'6 (4.20-5.60); RED CELL DISTRIBUTION WIDTH 16.2 % (11.5-14.5); WHITE BLOOD COUNT 10.3 X10'3 (4.5-11.0)
[2021-03-27 16:17] LABS: ALANINE AMINOTRANSFERASE 12 U/L (12-78); ALBUMIN 3.3 G/DL (3.4-5.0); ALBUMIN/GLOBULIN RATIO 0.8 (1.1-1.5); ALKALINE PHOSPHATASE 119 IU/L (46-116); ANION GAP 11 (8-16); ASPARTATE AMINO TRANSFERASE 14 U/L (10-37); BILIRUBIN,TOTAL 0.2 MG/DL (0.1-1.0); BLOOD UREA NITROGEN 8 MG/DL (7-18); BUN/CREATININE RATIO 8.8 (6.6-38.0); CALCIUM 9.2 MG/DL (8.5-10.1); CHLORIDE 101 MMOL/L (99-107); CREATININE 0.91 MG/DL (0.40-0.90); GLUCOSE 288 MG/DL (70-104); POTASSIUM 3.7 MMOL/L (3.5-5.1); SODIUM 135 MMOL/L (135-145); TOTAL CARBON DIOXIDE 22.9 MMOL/L (24-32); TOTAL PROTEIN 7.4 G/DL (6.4-8.2); TROPONIN I < 0.04 NG/ML (0.0-0.05); eGFR 63 ML/MIN
[2021-03-27] MEDS ORDERED: insulin regular, human 10 units/0.1 ml syringe SQ ONE (16:35)
[2021-03-27 18:21] VITALS: BP 130/107
--- NOTE | 2021-03-27 19:24 | NUR ---
CAN GO HOME pt was discharged by MAURO JEAN-BAPTISTE PRIOR TO ASSUMING CARE BLOOD GLUCOSE AT [address] [place] AWARE OF BLOOD SUGAR VERBALIZED THAT PATEINT
== END 2021-03-27 18:45 | disposition home or self-care (01) ==
LOC: ER 15:29
DX: G51.0 Bell's palsy (principal); E11.65 Type 2 diabetes mellitus with hyperglycemia; H53.8 Other visual disturbances; I25.10 Atherosclerotic heart disease of native coronary artery without angina pectoris; E78.00 Pure hypercholesterolemia, unspecified; I10 Essential (primary) hypertension; I25.2 Old myocardial infarction; J44.9 Chronic obstructive pulmonary disease, unspecified; K21.9 Gastro-esophageal reflux disease without esophagitis; G89.29 Other chronic pain; Z98.51 Tubal ligation status; Z98.890 Other specified postprocedural states; Z60.2 Problems related to living alone; Z91.018 Allergy to other foods; Z88.1 Allergy status to other antibiotic agents; Z88.8 Allergy status to other drugs, medicaments and biological substances; Z79.4 Long term (current) use of insulin; Z79.899 Other long term (current) drug therapy
CPT/HCPCS: 36415; 70450; 71045; 80053; 82948; 84484; 85025; 85610; 93005; 96372; 99285; J1815

== ENCOUNTER 2021-03-31 18:11 | Emergency (ER) | payer MEDICAID ==
[~2021-03-31] VITALS: Ht 160 cm; Wt 71.4 kg
[2021-03-31 20:08] LABS: BASOPHILS # (AUTO) 0.2 X10'3 (0-0.2); BASOPHILS % (AUTO) 1.4 % (0-1); HEMATOCRIT 41.5 % (35.0-45.0); LYMPHOCYTES # (AUTO) 2.8 X10'3 (1.1-4.8)
[2021-03-31 20:10] LABS: EOSINOPHILS # (AUTO) 0.2 X10'3 (0-0.9); EOSINOPHILS % (AUTO) 1.8 % (0-6); HEMOGLOBIN 13.7 g/dl (12.0-16.0); LYMPHOCYTES % (AUTO) 23.6 % (21-51); MEAN CORPUSCULAR HEMOGLOBIN 25.1 PG (27.0-31.0); MEAN CORPUSCULAR HGB CONC 33.1 g/dL (33.0-36.5); MEAN CORPUSCULAR VOLUME 75.8 FL (78-98); MONOCYTES # (AUTO) 0.7 X10'3 (0-0.9); MONOCYTES % (AUTO) 5.5 % (2-12); NEUTROPHILS # (AUTO) 8.1 X10'3 (1.8-7.7); NEUTROPHILS % (AUTO) 67.7 % (42-75); PLATELET COUNT 308 X10'3 (140-440); RED BLOOD COUNT 5.47 X10'6 (4.20-5.60); RED CELL DISTRIBUTION WIDTH 15.4 % (11.5-14.5)
[2021-03-31 20:14] LABS: ALBUMIN 3.2 G/DL (3.4-5.0); ANION GAP 10 (8-16); BLOOD UREA NITROGEN 10 MG/DL (7-18); CALCIUM 9.3 MG/DL (8.5-10.1); CHLORIDE 101 MMOL/L (99-107); CREATININE 0.83 MG/DL (0.40-0.90); GLUCOSE 246 MG/DL (70-104); POTASSIUM 3.6 MMOL/L (3.5-5.1); SODIUM 136 MMOL/L (135-145); TOTAL CARBON DIOXIDE 25.2 MMOL/L (24-32); eGFR 71 ML/MIN
[2021-03-31] MEDS ORDERED: predniSONE 20 mg tablet PO ONE (20:40)
--- NOTE | 2021-03-31 20:58 | NUR ---
Pt Faustino harley [phone]
[2021-03-31 21:08] VITALS: BP 136/67
[2021-03-31] MEDS ORDERED: PRED20TA PO (21:08)
[2021-03-31] MEDS ORDERED: HYDROcodone/acetaminophen 5mg/325mg tablet PO ONE (21:10)
== END 2021-03-31 21:30 | disposition home or self-care (01) ==
LOC: ER 18:12
DX: R51.9 Headache, unspecified (principal); H53.9 Unspecified visual disturbance; G89.29 Other chronic pain; R10.9 Unspecified abdominal pain; I11.9 Hypertensive heart disease without heart failure; E78.00 Pure hypercholesterolemia, unspecified; J44.9 Chronic obstructive pulmonary disease, unspecified; K21.9 Gastro-esophageal reflux disease without esophagitis; E11.9 Type 2 diabetes mellitus without complications; F32.9 Major depressive disorder, single episode, unspecified; Z91.018 Allergy to other foods; Z88.2 Allergy status to sulfonamides; Z79.899 Other long term (current) drug therapy; Z88.8 Allergy status to other drugs, medicaments and biological substances
CPT/HCPCS: 70450; 80048; 85025; 85651; 86140; 99284; J7512

== ENCOUNTER 2021-04-06 09:42 | Emergency (ER) | payer MEDICAID ==
[~2021-04-06] VITALS: Ht 157.5 cm; Wt 70.0 kg
[~2021-04-06 09:42] MED LIST changes: +PRED20TA PO
[2021-04-06 10:28] LABS: BASOPHILS # (AUTO) 0.1 X10'3 (0-0.2); EOSINOPHILS # (AUTO) 0.1 X10'3 (0-0.9); EOSINOPHILS % (AUTO) 1.4 % (0-6); HEMOGLOBIN 13.5 g/dl (12.0-16.0); LYMPHOCYTES # (AUTO) 1.7 X10'3 (1.1-4.8)
[2021-04-06 10:29] LABS: BASOPHILS % (AUTO) 0.9 % (0-1); HEMATOCRIT 40.5 % (35.0-45.0); MEAN CORPUSCULAR HEMOGLOBIN 25.3 PG (27.0-31.0); MEAN CORPUSCULAR HGB CONC 33.2 g/dL (33.0-36.5); MEAN CORPUSCULAR VOLUME 76.1 FL (78-98); MEAN PLATELET VOLUME 8.3 FL (7.4-10.4); MONOCYTES # (AUTO) 0.5 X10'3 (0-0.9); MONOCYTES % (AUTO) 5.1 % (2-12); NEUTROPHILS # (AUTO) 6.7 X10'3 (1.8-7.7); NEUTROPHILS % (AUTO) 73.6 % (42-75); PLATELET COUNT 275 X10'3 (140-440); RED BLOOD COUNT 5.33 X10'6 (4.20-5.60); RED CELL DISTRIBUTION WIDTH 15.9 % (11.5-14.5); WHITE BLOOD COUNT 9.1 X10'3 (4.5-11.0)
[2021-04-06 10:31] LABS: CLARITY,URINE SLIGHTLY CLOUDY (Clear); COLOR,URINE YELLOW (Yellow); GLUCOSE, URINE >=1000 mg/dl (Neg); KETONES,URINE NEGATIVE (Neg); LEUKOCYTE ESTERASE ,URINE TRACE (Neg); NITRITES, URINE NEGATIVE (Neg); OCCULT BLOOD,URINE NEGATIVE (Neg); PH,URINE 5.5 (4.8-8.0); PROTEIN,URINE NEGATIVE (Neg); UROBILINOGEN,URINE 0.2 E.U/dL (0.2-1.0)
[2021-04-06 10:33] LABS: UA COLLECTION TYPE CLN CATCH MIDSTREAM
[2021-04-06 10:39] LABS: URINE HCG NEGATIVE (NEG)
[2021-04-06 10:41] LABS: BACTERIA,URINE 1+ /HPF (Neg); MUCUS STRANDS NONE SEEN /LPF (Neg); RBC,URINE NONE SEEN /HPF (0-2); SQUAMOUS EPITHELIAL CELL,UR MODERATE /LPF (FEW); TRANSITIONAL EPI CELLS,URINE FEW /HPF; YEAST FEW /HPF (NEGATIVE)
[2021-04-06 10:41] LABS: ALANINE AMINOTRANSFERASE 13 U/L (12-78); ALBUMIN/GLOBULIN RATIO 0.9 (1.1-1.5); ALKALINE PHOSPHATASE 118 IU/L (46-116); ANION GAP 7 (8-16); ASPARTATE AMINO TRANSFERASE 12 U/L (10-37); BILIRUBIN,TOTAL 0.5 MG/DL (0.1-1.0); BLOOD UREA NITROGEN 14 MG/DL (7-18); BUN/CREATININE RATIO 15.1 (6.6-38.0); CALCIUM 9.5 MG/DL (8.5-10.1); CHLORIDE 102 MMOL/L (99-107); CREATININE 0.93 MG/DL (0.40-0.90); GLUCOSE 268 MG/DL (70-104); LIPASE 96 U/L (73-393); POTASSIUM 3.6 MMOL/L (3.5-5.1); SODIUM 138 MMOL/L (135-145); TOTAL CARBON DIOXIDE 29.3 MMOL/L (24-32); TOTAL PROTEIN 6.5 G/DL (6.4-8.2); eGFR 62 ML/MIN
[2021-04-06] MEDS ORDERED: LORazepam 2 mg/ml vial IV ONE (11:30)
[2021-04-06] MEDS ORDERED: ketorolac trometh. 30mg/ml inj. IV ONE (11:30)
[2021-04-06] MEDS ORDERED: ketorolac tromethamine 15mg/ml inj. IV ONE (11:35)
[2021-04-06] MEDS ORDERED: iohexol 300mg/ml 100ml inj. ONE (11:55)
[2021-04-06] MEDS ORDERED: METO-292 PO (12:29)
--- NOTE | 2021-04-06 12:53 | NUR ---
pt states " I JUST DONT FEEL RIGHT"
[2021-04-06] MEDS ORDERED: haloperidol lactate 5mg/ml inj IV ONE (13:20)
[2021-04-06 16:48] VITALS: BP 130/67
== END 2021-04-06 16:49 | disposition home or self-care (01) ==
LOC: ER 09:42
DX: R10.9 Unspecified abdominal pain (principal); R06.02 Shortness of breath; R05 Cough; I25.10 Atherosclerotic heart disease of native coronary artery without angina pectoris; E78.00 Pure hypercholesterolemia, unspecified; I10 Essential (primary) hypertension; I25.2 Old myocardial infarction; J44.9 Chronic obstructive pulmonary disease, unspecified; K21.9 Gastro-esophageal reflux disease without esophagitis; E11.9 Type 2 diabetes mellitus without complications; G89.29 Other chronic pain; F32.9 Major depressive disorder, single episode, unspecified; Z98.51 Tubal ligation status; Z87.891 Personal history of nicotine dependence; Z60.2 Problems related to living alone; Z98.890 Other specified postprocedural states; Z91.018 Allergy to other foods; Z88.8 Allergy status to other drugs, medicaments and biological substances; Z88.2 Allergy status to sulfonamides; Z79.4 Long term (current) use of insulin; Z79.899 Other long term (current) drug therapy
CPT/HCPCS: 74177; 80053; 81001; 81025; 82948; 83690; 85025; 87088; 93005; 96374; 96375; 99285; J1630; J1885; J2060; Q9967

== ENCOUNTER 2021-04-12 02:26 | Emergency (ER) | payer MEDICAID ==
[~2021-04-12] VITALS: Ht 160 cm; Wt 68.6 kg
[~2021-04-12 02:26] MED LIST changes: +METO-292 PO
[2021-04-12 02:29] VITALS: BP 121/73
[2021-04-12 03:17] LABS: BASOPHILS % (AUTO) 0.4 % (0-1); EOSINOPHILS # (AUTO) 0.2 X10'3 (0-0.9); EOSINOPHILS % (AUTO) 2.1 % (0-6); HEMATOCRIT 41.4 % (35.0-45.0); HEMOGLOBIN 13.6 g/dl (12.0-16.0); LYMPHOCYTES # (AUTO) 2.1 X10'3 (1.1-4.8); LYMPHOCYTES % (AUTO) 23.8 % (21-51); MEAN CORPUSCULAR HEMOGLOBIN 25.2 PG (27.0-31.0); MEAN CORPUSCULAR HGB CONC 32.8 g/dL (33.0-36.5); MEAN CORPUSCULAR VOLUME 76.8 FL (78-98); MEAN PLATELET VOLUME 8.7 FL (7.4-10.4); MONOCYTES # (AUTO) 0.6 X10'3 (0-0.9); MONOCYTES % (AUTO) 6.7 % (2-12); NEUTROPHILS # (AUTO) 5.9 X10'3 (1.8-7.7); PLATELET COUNT 262 X10'3 (140-440); RED BLOOD COUNT 5.39 X10'6 (4.20-5.60); RED CELL DISTRIBUTION WIDTH 16.4 % (11.5-14.5); WHITE BLOOD COUNT 8.8 X10'3 (4.5-11.0)
[2021-04-12 03:37] LABS: ALANINE AMINOTRANSFERASE 15 U/L (12-78); ALBUMIN 2.9 G/DL (3.4-5.0); ALBUMIN/GLOBULIN RATIO 0.7 (1.1-1.5); ALKALINE PHOSPHATASE 139 IU/L (46-116); ANION GAP 10 (8-16); ASPARTATE AMINO TRANSFERASE 8 U/L (10-37); BILIRUBIN,TOTAL 0.2 MG/DL (0.1-1.0); BLOOD UREA NITROGEN 9 MG/DL (7-18); BUN/CREATININE RATIO 9.3 (6.6-38.0); CALCIUM 8.7 MG/DL (8.5-10.1); CHLORIDE 101 MMOL/L (99-107); CREATININE 0.97 MG/DL (0.40-0.90); GLUCOSE 416 MG/DL (70-104); POTASSIUM 3.9 MMOL/L (3.5-5.1); SODIUM 135 MMOL/L (135-145); TOTAL CARBON DIOXIDE 24.5 MMOL/L (24-32); TOTAL PROTEIN 6.9 G/DL (6.4-8.2); eGFR 59 ML/MIN
[2021-04-12 03:40] LABS: LIPASE 143 U/L (73-393); TROPONIN I < 0.04 NG/ML (0.0-0.05)
[2021-04-12 05:41] LABS: CLARITY,URINE CLEAR (Clear); COLOR,URINE STRAW (Yellow); GLUCOSE, URINE >=1000 mg/dl (Neg); KETONES,URINE NEGATIVE (Neg); LEUKOCYTE ESTERASE ,URINE NEGATIVE (Neg); NITRITES, URINE NEGATIVE (Neg); OCCULT BLOOD,URINE NEGATIVE (Neg); PROTEIN,URINE NEGATIVE (Neg); UROBILINOGEN,URINE 0.2 E.U/dL (0.2-1.0)
[2021-04-12 05:43] LABS: UA COLLECTION TYPE VOIDED
[2021-04-12 05:49] LABS: BACTERIA,URINE NONE SEEN /HPF (Neg); MUCUS STRANDS NONE SEEN /LPF (Neg); RBC,URINE NONE SEEN /HPF (0-2); SQUAMOUS EPITHELIAL CELL,UR MODERATE /LPF (FEW); WBC,URINE 0-4 /HPF (0-4)
[2021-04-12] MEDS ORDERED: PRED10TA23 PO (08:21)
[2021-04-12] MEDS ORDERED: HYDROcodone/acetaminophen 5mg/325mg tablet PO ONE (08:25)
== END 2021-04-12 08:55 | disposition home or self-care (01) ==
LOC: ER 02:27
DX: R10.84 Generalized abdominal pain (principal); G89.29 Other chronic pain; R11.2 Nausea with vomiting, unspecified; I25.10 Atherosclerotic heart disease of native coronary artery without angina pectoris; E78.00 Pure hypercholesterolemia, unspecified; I10 Essential (primary) hypertension; I25.2 Old myocardial infarction; J44.9 Chronic obstructive pulmonary disease, unspecified; K21.9 Gastro-esophageal reflux disease without esophagitis; E11.9 Type 2 diabetes mellitus without complications; F32.9 Major depressive disorder, single episode, unspecified; Z98.51 Tubal ligation status; Z98.890 Other specified postprocedural states; Z60.2 Problems related to living alone; Z91.018 Allergy to other foods; Z88.8 Allergy status to other drugs, medicaments and biological substances; Z88.1 Allergy status to other antibiotic agents; Z79.4 Long term (current) use of insulin; Z79.899 Other long term (current) drug therapy
CPT/HCPCS: 36415; 74176; 80053; 81001; 83690; 84484; 85025; 99284

== ENCOUNTER 2021-05-05 13:11 | Emergency (ER) | payer MEDICAID ==
[~2021-05-05] VITALS: Ht 160 cm; Wt 75.0 kg
[~2021-05-05 13:11] MED LIST changes: +PRED10TA23 PO; -PRED20TA PO; -QUET100T33 PO; +QUET100T34 PO
[2021-05-05 14:13] LABS: BASOPHILS # (AUTO) 0.1 X10'3 (0-0.2); BASOPHILS % (AUTO) 1.4 % (0-1); EOSINOPHILS # (AUTO) 0.2 X10'3 (0-0.9); EOSINOPHILS % (AUTO) 1.9 % (0-6); HEMATOCRIT 39.8 % (35.0-45.0); HEMOGLOBIN 13.1 g/dl (12.0-16.0); LYMPHOCYTES # (AUTO) 2.4 X10'3 (1.1-4.8); LYMPHOCYTES % (AUTO) 23.2 % (21-51); MEAN CORPUSCULAR HEMOGLOBIN 25.2 PG (27.0-31.0); MEAN CORPUSCULAR HGB CONC 32.9 g/dL (33.0-36.5); MEAN CORPUSCULAR VOLUME 76.7 FL (78-98); MEAN PLATELET VOLUME 8.1 FL (7.4-10.4); MONOCYTES # (AUTO) 0.6 X10'3 (0-0.9); MONOCYTES % (AUTO) 5.9 % (2-12); NEUTROPHILS # (AUTO) 6.9 X10'3 (1.8-7.7); NEUTROPHILS % (AUTO) 67.6 % (42-75); PLATELET COUNT 290 X10'3 (140-440); RED BLOOD COUNT 5.19 X10'6 (4.20-5.60); RED CELL DISTRIBUTION WIDTH 15.5 % (11.5-14.5); WHITE BLOOD COUNT 10.3 X10'3 (4.5-11.0)
[2021-05-05 14:14] LABS: CLARITY,URINE CLEAR (Clear); COLOR,URINE YELLOW (Yellow); GLUCOSE, URINE 250 mg/dl (Neg); KETONES,URINE NEGATIVE (Neg); LEUKOCYTE ESTERASE ,URINE NEGATIVE (Neg); NITRITES, URINE NEGATIVE (Neg); OCCULT BLOOD,URINE NEGATIVE (Neg); PROTEIN,URINE NEGATIVE (Neg); UROBILINOGEN,URINE 0.2 E.U/dL (0.2-1.0)
[2021-05-05 14:20] LABS: UA COLLECTION TYPE CLN CATCH MIDSTREAM
[2021-05-05 14:47] LABS: ALANINE AMINOTRANSFERASE 13 U/L (12-78); ALBUMIN/GLOBULIN RATIO 0.7 (1.1-1.5); ALKALINE PHOSPHATASE 115 IU/L (46-116); ANION GAP 9 (8-16); ASPARTATE AMINO TRANSFERASE 11 U/L (10-37); BILIRUBIN,TOTAL 0.3 MG/DL (0.1-1.0); BLOOD UREA NITROGEN 5 MG/DL (7-18); BUN/CREATININE RATIO 5.5 (6.6-38.0); CHLORIDE 106 MMOL/L (99-107); CREATININE 0.91 MG/DL (0.40-0.90); GLUCOSE 114 MG/DL (70-104); LIPASE 96 U/L (73-393); POTASSIUM 3.5 MMOL/L (3.5-5.1); SODIUM 142 MMOL/L (135-145); TOTAL CARBON DIOXIDE 27.3 MMOL/L (24-32); TOTAL PROTEIN 7.2 G/DL (6.4-8.2); eGFR 63 ML/MIN
[2021-05-05] MEDS ORDERED: morphine 4 MG/ML inj SYRINge IM ONE (20:40)
[2021-05-05] MEDS ORDERED: ketorolac trometh inj. 60 MG/2 ML VIAL IM ONE (20:40)
[2021-05-05] MEDS ORDERED: ondansetron 4mg rapidly disintigrating tab PO ONE (21:05)
[2021-05-05 22:05] VITALS: BP 108/90
== END 2021-05-05 22:06 | disposition home or self-care (01) ==
LOC: ER 13:12
DX: R10.84 Generalized abdominal pain (principal); E78.00 Pure hypercholesterolemia, unspecified; I11.9 Hypertensive heart disease without heart failure; J44.9 Chronic obstructive pulmonary disease, unspecified; K21.9 Gastro-esophageal reflux disease without esophagitis; E11.9 Type 2 diabetes mellitus without complications; F32.9 Major depressive disorder, single episode, unspecified; Z91.018 Allergy to other foods; Z88.5 Allergy status to narcotic agent; Z88.8 Allergy status to other drugs, medicaments and biological substances; Z79.899 Other long term (current) drug therapy
CPT/HCPCS: 36415; 80053; 81003; 82948; 83690; 85025; 96372; 99284; J1885; J2270

== ENCOUNTER 2021-05-27 09:48 | Emergency (ER) | payer MEDICAID ==
[~2021-05-27 09:48] MED LIST changes: -PRED10TA23 PO
== END 2021-05-28 | disposition left against medical advice (07) ==
LOC: ER 05-28 06:02
DX: Z53.21 Procedure and treatment not carried out due to patient leaving prior to being seen by health care provider (principal)

== ENCOUNTER 2021-07-19 18:10 | Emergency (ER) | payer MEDICAID ==
[~2021-07-19] VITALS: Ht 165.1 cm; Wt 74.5 kg
[2021-07-19 19:15] LABS: BASOPHILS # (AUTO) 0.1 X10'3 (0-0.2); BASOPHILS % (AUTO) 0.6 % (0-1); EOSINOPHILS # (AUTO) 0.3 X10'3 (0-0.9); EOSINOPHILS % (AUTO) 2.4 % (0-6); HEMATOCRIT 43.2 % (35.0-45.0); HEMOGLOBIN 14.2 g/dl (12.0-16.0); LYMPHOCYTES # (AUTO) 2.9 X10'3 (1.1-4.8); LYMPHOCYTES % (AUTO) 23.5 % (21-51); MEAN CORPUSCULAR HEMOGLOBIN 25.2 PG (27.0-31.0); MEAN CORPUSCULAR HGB CONC 32.8 g/dL (33.0-36.5); MEAN CORPUSCULAR VOLUME 76.6 FL (78-98); MEAN PLATELET VOLUME 8.7 FL (7.4-10.4); MONOCYTES # (AUTO) 0.6 X10'3 (0-0.9); MONOCYTES % (AUTO) 5.2 % (2-12); NEUTROPHILS # (AUTO) 8.4 X10'3 (1.8-7.7); NEUTROPHILS % (AUTO) 68.3 % (42-75); PLATELET COUNT 271 X10'3 (140-440); RED BLOOD COUNT 5.64 X10'6 (4.20-5.60); RED CELL DISTRIBUTION WIDTH 15.4 % (11.5-14.5); WHITE BLOOD COUNT 12.3 X10'3 (4.5-11.0)
[2021-07-19 19:27] LABS: ALANINE AMINOTRANSFERASE 18 U/L (12-78); ALBUMIN 3.4 G/DL (3.4-5.0); ALBUMIN/GLOBULIN RATIO 0.9 (1.1-1.5); ALKALINE PHOSPHATASE 129 IU/L (46-116); ANION GAP 11 (8-16); ASPARTATE AMINO TRANSFERASE 11 U/L (10-37); BILIRUBIN,TOTAL 0.2 MG/DL (0.1-1.0); BLOOD UREA NITROGEN 13 MG/DL (7-18); BUN/CREATININE RATIO 11.8 (6.6-38.0); CALCIUM 8.9 MG/DL (8.5-10.1); CHLORIDE 103 MMOL/L (99-107); GLUCOSE 302 MG/DL (70-104); LIPASE 168 U/L (73-393); POTASSIUM 4.1 MMOL/L (3.5-5.1); SODIUM 139 MMOL/L (135-145); TOTAL CARBON DIOXIDE 24.8 MMOL/L (24-32); TOTAL PROTEIN 7.4 G/DL (6.4-8.2); eGFR 51 ML/MIN
[2021-07-19 19:46] LABS: URINE HCG NEGATIVE (NEG)
[2021-07-19 19:55] LABS: CLARITY,URINE CLEAR (Clear); COLOR,URINE YELLOW (Yellow); GLUCOSE, URINE >=1000 mg/dl (Neg); PROTEIN,URINE TRACE mg/dl (Neg); UA COLLECTION TYPE CLN CATCH MIDSTREAM
[2021-07-19 19:56] LABS: KETONES,URINE TRACE mg/dl (Neg); LEUKOCYTE ESTERASE ,URINE NEGATIVE (Neg); NITRITES, URINE NEGATIVE (Neg); OCCULT BLOOD,URINE NEGATIVE (Neg); UROBILINOGEN,URINE 0.2 E.U/dL (0.2-1.0)
[2021-07-19 19:57] LABS: SQUAMOUS EPITHELIAL CELL,UR MANY /LPF (FEW)
[2021-07-19 19:58] LABS: CELLULAR CAST 0-4 /LPF (NEGATIVE)
[2021-07-19 19:59] LABS: BACTERIA,URINE FEW /HPF (Neg); MUCUS STRANDS MODERATE /LPF (Neg); RBC,URINE 0-2 /HPF (0-2); WBC,URINE 0-4 /HPF (0-4)
[2021-07-19] MEDS ORDERED: morphine oral 20mg/ml (conc. morphine) 1ml oral syringe PO PRN (21:30)
[2021-07-19] MEDS ORDERED: morphine 10mg/0.5ml (conc. morphine) oral syringe PO PRN (21:33)
== END 2021-07-19 23:29 | disposition home or self-care (01) ==
LOC: ER 18:10
DX: R10.13 Epigastric pain (principal); R11.0 Nausea; K86.89 Other specified diseases of pancreas; I25.10 Atherosclerotic heart disease of native coronary artery without angina pectoris; E78.00 Pure hypercholesterolemia, unspecified; I10 Essential (primary) hypertension; I25.2 Old myocardial infarction; J44.9 Chronic obstructive pulmonary disease, unspecified; K21.9 Gastro-esophageal reflux disease without esophagitis; E11.9 Type 2 diabetes mellitus without complications; G89.29 Other chronic pain; F32.9 Major depressive disorder, single episode, unspecified; Z98.51 Tubal ligation status; Z98.890 Other specified postprocedural states; Z60.2 Problems related to living alone; Z88.8 Allergy status to other drugs, medicaments and biological substances; Z91.018 Allergy to other foods; Z79.4 Long term (current) use of insulin; Z79.899 Other long term (current) drug therapy
CPT/HCPCS: 36415; 74176; 80053; 81001; 81025; 83690; 85025; 99284

== ENCOUNTER 2021-08-06 17:42 | Emergency (ER) | payer MEDICAID | END 2021-08-06 18:08 | disposition left against medical advice (07) | LOC: ER 17:43 | DX: Z53.21 Procedure and treatment not carried out due to patient leaving prior to being seen by health care provider (principal) ==

== ENCOUNTER 2021-08-18 20:19 | Emergency (ER) | payer MEDICAID ==
[~2021-08-18] VITALS: Ht 157.5 cm; Wt 71.8 kg
[2021-08-18 21:02] LABS: BASOPHILS # (AUTO) 0.1 X10'3 (0-0.2); BASOPHILS % (AUTO) 0.7 % (0-1); EOSINOPHILS # (AUTO) 0.2 X10'3 (0-0.9); EOSINOPHILS % (AUTO) 2.1 % (0-6); HEMATOCRIT 40.1 % (35.0-45.0); HEMOGLOBIN 13.4 g/dl (12.0-16.0); LYMPHOCYTES # (AUTO) 2.1 X10'3 (1.1-4.8); LYMPHOCYTES % (AUTO) 22.9 % (21-51); MEAN CORPUSCULAR HEMOGLOBIN 25.4 PG (27.0-31.0); MEAN CORPUSCULAR HGB CONC 33.5 g/dL (33.0-36.5); MEAN CORPUSCULAR VOLUME 75.9 FL (78-98); MEAN PLATELET VOLUME 8.3 FL (7.4-10.4); MONOCYTES # (AUTO) 0.5 X10'3 (0-0.9); NEUTROPHILS # (AUTO) 6.4 X10'3 (1.8-7.7); NEUTROPHILS % (AUTO) 69.3 % (42-75); PLATELET COUNT 265 X10'3 (140-440); RED BLOOD COUNT 5.29 X10'6 (4.20-5.60); WHITE BLOOD COUNT 9.2 X10'3 (4.5-11.0)
[2021-08-18 21:06] LABS: ALANINE AMINOTRANSFERASE 18 U/L (12-78); ALBUMIN 3.2 G/DL (3.4-5.0); ALBUMIN/GLOBULIN RATIO 0.8 (1.1-1.5); ALKALINE PHOSPHATASE 124 IU/L (46-116); ANION GAP 9 (8-16); ASPARTATE AMINO TRANSFERASE 12 U/L (10-37); BILIRUBIN,TOTAL 0.3 MG/DL (0.1-1.0); BLOOD UREA NITROGEN 10 MG/DL (7-18); BUN/CREATININE RATIO 11.2 (6.6-38.0); CALCIUM 9.3 MG/DL (8.5-10.1); CHLORIDE 106 MMOL/L (99-107); CREATININE 0.89 MG/DL (0.40-0.90); GLUCOSE 205 MG/DL (70-104); POTASSIUM 3.7 MMOL/L (3.5-5.1); SODIUM 142 MMOL/L (135-145); TOTAL CARBON DIOXIDE 26.6 MMOL/L (24-32); eGFR 65 ML/MIN
[2021-08-18 21:15] LABS: LIPASE 146 U/L (73-393)
[2021-08-18 22:00] LABS: CLARITY,URINE CLEAR (Clear); COLOR,URINE YELLOW (Yellow); UA COLLECTION TYPE CLN CATCH MIDSTREAM
[2021-08-18 22:01] LABS: GLUCOSE, URINE >=1000 mg/dl (Neg); KETONES,URINE NEGATIVE (Neg); NITRITES, URINE NEGATIVE (Neg); OCCULT BLOOD,URINE NEGATIVE (Neg); PH,URINE 6.5 (4.8-8.0); PROTEIN,URINE NEGATIVE (Neg)
[2021-08-18 22:02] LABS: LEUKOCYTE ESTERASE ,URINE SMALL (Neg); UROBILINOGEN,URINE 0.2 E.U/dL (0.2-1.0)
[2021-08-18 22:24] LABS: BACTERIA,URINE NONE SEEN /HPF (Neg); MUCUS STRANDS FEW /LPF (Neg); RBC,URINE NONE SEEN /HPF (0-2); SQUAMOUS EPITHELIAL CELL,UR MODERATE /LPF (FEW); WBC,URINE 0-4 /HPF (0-4)
[2021-08-18] MEDS ORDERED: iohexol 300mg/ml 100ml inj. ONE (23:12)
[2021-08-18] MEDS: ondansetron/PF 4mg/2ml inj IV ONE (23:18)
[2021-08-18] MEDS: morphine 4 MG/ML inj SYRINge IV ONE (23:18)
[2021-08-19 04:15] VITALS: BP 133/87
== END 2021-08-19 04:16 | disposition home or self-care (01) ==
LOC: ER 20:19
DX: K86.3 Pseudocyst of pancreas (principal); E78.00 Pure hypercholesterolemia, unspecified; I10 Essential (primary) hypertension; J44.9 Chronic obstructive pulmonary disease, unspecified; K21.9 Gastro-esophageal reflux disease without esophagitis; E11.9 Type 2 diabetes mellitus without complications; F32.9 Major depressive disorder, single episode, unspecified; Z91.013 Allergy to seafood; Z91.018 Allergy to other foods; Z88.1 Allergy status to other antibiotic agents; Z88.8 Allergy status to other drugs, medicaments and biological substances
CPT/HCPCS: 36415; 71045; 74177; 80053; 81001; 83690; 83880; 84484; 85025; 87088; 93005; 96374; 96375; 99285; J2270; J2405; Q9967

== ENCOUNTER 2021-11-04 14:30 | Emergency (ER) | payer MEDICAID ==
[~2021-11-04] VITALS: Ht 157.5 cm; Wt 71.1 kg
[2021-11-04 14:36] VITALS: BP 131/65
== END 2021-11-04 17:03 | disposition home or self-care (01) ==
LOC: ER 14:30
DX: R07.81 Pleurodynia (principal); F17.210 Nicotine dependence, cigarettes, uncomplicated; E78.00 Pure hypercholesterolemia, unspecified; I11.9 Hypertensive heart disease without heart failure; J44.9 Chronic obstructive pulmonary disease, unspecified; K21.9 Gastro-esophageal reflux disease without esophagitis; G89.29 Other chronic pain; F32.9 Major depressive disorder, single episode, unspecified; Z91.018 Allergy to other foods; Z88.1 Allergy status to other antibiotic agents; Z79.899 Other long term (current) drug therapy; Z88.8 Allergy status to other drugs, medicaments and biological substances; X50.0XXA Overexertion from strenuous movement or load, initial encounter; Y93.89 Activity, other specified; Y92.89 Other specified places as the place of occurrence of the external cause; Y99.8 Other external cause status
CPT/HCPCS: 71046; 99283

== ENCOUNTER 2022-01-04 16:08 | Emergency (ER) | payer MEDICAID ==
[~2022-01-04] VITALS: Ht 157.5 cm; Wt 80.0 kg
[~2022-01-04 16:08] MED LIST changes: +ALBU18HF2 INH; +PRED20TA PO
[2022-01-04 17:01] LABS: BASOPHILS # (AUTO) 0.1 X10'3 (0-0.2); BASOPHILS % (AUTO) 0.7 % (0-1); EOSINOPHILS # (AUTO) 0.1 X10'3 (0-0.9); EOSINOPHILS % (AUTO) 1.1 % (0-6); HEMATOCRIT 38.6 % (35.0-45.0); HEMOGLOBIN 12.3 g/dl (12.0-16.0); LYMPHOCYTES % (AUTO) 16.1 % (21-51); MEAN CORPUSCULAR HGB CONC 31.9 g/dL (33.0-36.5); MEAN CORPUSCULAR VOLUME 81.4 FL (78-98); MEAN PLATELET VOLUME 7.8 FL (7.4-10.4); MONOCYTES # (AUTO) 0.7 X10'3 (0-0.9); MONOCYTES % (AUTO) 5.6 % (2-12); NEUTROPHILS # (AUTO) 9.6 X10'3 (1.8-7.7); NEUTROPHILS % (AUTO) 76.5 % (42-75); PLATELET COUNT 265 X10'3 (140-440); RED BLOOD COUNT 4.74 X10'6 (4.20-5.60); RED CELL DISTRIBUTION WIDTH 15.1 % (11.5-14.5); WHITE BLOOD COUNT 12.6 X10'3 (4.5-11.0)
[2022-01-04 17:18] LABS: ALANINE AMINOTRANSFERASE 31 U/L (12-78); ALBUMIN/GLOBULIN RATIO 0.8 (1.1-1.5); ALKALINE PHOSPHATASE 97 IU/L (46-116); ANION GAP 10 (8-16); ASPARTATE AMINO TRANSFERASE 18 U/L (10-37); BILIRUBIN,TOTAL 0.5 MG/DL (0.1-1.0); BLOOD UREA NITROGEN 8 MG/DL (7-18); BUN/CREATININE RATIO 6.9 (6.6-38.0); CALCIUM 9.3 MG/DL (8.5-10.1); CHLORIDE 104 MMOL/L (99-107); CREATININE 1.16 MG/DL (0.40-0.90); GLUCOSE 142 MG/DL (70-104); POTASSIUM 3.5 MMOL/L (3.5-5.1); SODIUM 141 MMOL/L (135-145); TOTAL CARBON DIOXIDE 26.6 MMOL/L (24-32); TOTAL PROTEIN 6.6 G/DL (6.4-8.2); eGFR 48 ML/MIN
[2022-01-04] MEDS ORDERED: ketorolac trometh. 30mg/ml inj. IV ONE (18:25)
[2022-01-04 18:50] VITALS: BP 143/63
== END 2022-01-04 18:56 | disposition home or self-care (01) ==
LOC: ER 16:08
DX: R07.89 Other chest pain (principal); R11.2 Nausea with vomiting, unspecified; I25.10 Atherosclerotic heart disease of native coronary artery without angina pectoris; E78.00 Pure hypercholesterolemia, unspecified; I10 Essential (primary) hypertension; I25.2 Old myocardial infarction; J44.9 Chronic obstructive pulmonary disease, unspecified; K21.9 Gastro-esophageal reflux disease without esophagitis; E11.9 Type 2 diabetes mellitus without complications; G89.29 Other chronic pain; F32.A Depression, unspecified; Z98.51 Tubal ligation status; Z60.2 Problems related to living alone; Z98.890 Other specified postprocedural states; Z88.1 Allergy status to other antibiotic agents; Z88.8 Allergy status to other drugs, medicaments and biological substances; Z91.018 Allergy to other foods; Z79.4 Long term (current) use of insulin; Z79.899 Other long term (current) drug therapy
CPT/HCPCS: 36415; 71045; 80053; 83880; 84484; 85025; 93005; 96374; 99285; J1885

== ENCOUNTER 2022-01-13 21:36 | Emergency (ER) | payer MEDICAID ==
[~2022-01-13] VITALS: Ht 157.5 cm; Wt 73.0 kg
[2022-01-13 22:10] LABS: BASOPHILS # (AUTO) 0.1 X10'3 (0-0.2); BASOPHILS % (AUTO) 0.8 % (0-1); EOSINOPHILS # (AUTO) 0.1 X10'3 (0-0.9); EOSINOPHILS % (AUTO) 1.2 % (0-6); HEMATOCRIT 35.2 % (35.0-45.0); HEMOGLOBIN 11.5 g/dl (12.0-16.0); LYMPHOCYTES # (AUTO) 1.9 X10'3 (1.1-4.8); LYMPHOCYTES % (AUTO) 23.5 % (21-51); MEAN CORPUSCULAR HEMOGLOBIN 26.4 PG (27.0-31.0); MEAN CORPUSCULAR HGB CONC 32.7 g/dL (33.0-36.5); MEAN CORPUSCULAR VOLUME 80.8 FL (78-98); MEAN PLATELET VOLUME 7.6 FL (7.4-10.4); MONOCYTES # (AUTO) 0.5 X10'3 (0-0.9); MONOCYTES % (AUTO) 5.8 % (2-12); NEUTROPHILS # (AUTO) 5.5 X10'3 (1.8-7.7); NEUTROPHILS % (AUTO) 68.7 % (42-75); PLATELET COUNT 229 X10'3 (140-440); RED BLOOD COUNT 4.35 X10'6 (4.20-5.60); RED CELL DISTRIBUTION WIDTH 14.7 % (11.5-14.5)
[2022-01-13 22:26] LABS: ALANINE AMINOTRANSFERASE 17 U/L (12-78); ALBUMIN 2.7 G/DL (3.4-5.0); ALBUMIN/GLOBULIN RATIO 0.8 (1.1-1.5); ALKALINE PHOSPHATASE 87 IU/L (46-116); ANION GAP 11 (8-16); ASPARTATE AMINO TRANSFERASE 11 U/L (10-37); BILIRUBIN,TOTAL 0.2 MG/DL (0.1-1.0); BLOOD UREA NITROGEN 10 MG/DL (7-18); BUN/CREATININE RATIO 11.5 (6.6-38.0); CALCIUM 8.5 MG/DL (8.5-10.1); CHLORIDE 106 MMOL/L (99-107); CREATININE 0.87 MG/DL (0.40-0.90); GLUCOSE 272 MG/DL (70-104); POTASSIUM 3.7 MMOL/L (3.5-5.1); SODIUM 142 MMOL/L (135-145); TOTAL CARBON DIOXIDE 25.4 MMOL/L (24-32); eGFR 67 ML/MIN
[2022-01-14 00:52] LABS: D-DIMER < 0.19 MG/L FEU (0-0.50)
[2022-01-14 01:35] VITALS: BP 126/84
== END 2022-01-14 01:37 | disposition home or self-care (01) ==
LOC: ER 21:36
DX: R06.02 Shortness of breath (principal); R07.9 Chest pain, unspecified; R05.9 Cough, unspecified; I11.9 Hypertensive heart disease without heart failure; E78.00 Pure hypercholesterolemia, unspecified; J44.9 Chronic obstructive pulmonary disease, unspecified; K21.9 Gastro-esophageal reflux disease without esophagitis; E11.9 Type 2 diabetes mellitus without complications; F32.9 Major depressive disorder, single episode, unspecified; Z91.018 Allergy to other foods; Z88.8 Allergy status to other drugs, medicaments and biological substances; Z88.5 Allergy status to narcotic agent; Z88.1 Allergy status to other antibiotic agents; Z79.899 Other long term (current) drug therapy
CPT/HCPCS: 36415; 71045; 80053; 83880; 84484; 85025; 85379; 93005; 99285

== ENCOUNTER 2022-03-09 15:32 | Emergency (ER) | payer MEDICAID ==
[~2022-03-09] VITALS: Ht 157.5 cm; Wt 72.0 kg
[~2022-03-09 15:32] MED LIST changes: -PRED20TA PO
[2022-03-09 16:16] LABS: BASOPHILS % (AUTO) 0.7 % (0-1); EOSINOPHILS # (AUTO) 0.1 X10'3 (0-0.9); EOSINOPHILS % (AUTO) 2.1 % (0-6); HEMATOCRIT 38.3 % (35.0-45.0); HEMOGLOBIN 12.5 g/dl (12.0-16.0); LYMPHOCYTES # (AUTO) 1.4 X10'3 (1.1-4.8); LYMPHOCYTES % (AUTO) 20.4 % (21-51); MEAN CORPUSCULAR HGB CONC 32.6 g/dL (33.0-36.5); MEAN CORPUSCULAR VOLUME 79.7 FL (78-98); MEAN PLATELET VOLUME 8.5 FL (7.4-10.4); MONOCYTES # (AUTO) 0.4 X10'3 (0-0.9); MONOCYTES % (AUTO) 6.1 % (2-12); NEUTROPHILS # (AUTO) 4.7 X10'3 (1.8-7.7); NEUTROPHILS % (AUTO) 70.7 % (42-75); PLATELET COUNT 222 X10'3 (140-440); RED BLOOD COUNT 4.81 X10'6 (4.20-5.60); RED CELL DISTRIBUTION WIDTH 14.5 % (11.5-14.5); WHITE BLOOD COUNT 6.7 X10'3 (4.5-11.0)
[2022-03-09 16:33] LABS: URINE HCG NEGATIVE (NEG)
[2022-03-09 16:34] LABS: CLARITY,URINE CLEAR (Clear); COLOR,URINE YELLOW (Yellow); GLUCOSE, URINE >=1000 mg/dl (Neg); KETONES,URINE NEGATIVE (Neg); LEUKOCYTE ESTERASE ,URINE NEGATIVE (Neg); NITRITES, URINE NEGATIVE (Neg); OCCULT BLOOD,URINE NEGATIVE (Neg); PH,URINE 5.5 (4.8-8.0); PROTEIN,URINE NEGATIVE (Neg); UROBILINOGEN,URINE 0.2 E.U/dL (0.2-1.0)
[2022-03-09 16:37] LABS: UA COLLECTION TYPE CLN CATCH MIDSTREAM
[2022-03-09 16:42] LABS: BACTERIA,URINE NONE SEEN /HPF (Neg); RBC,URINE 0-2 /HPF (0-2); SQUAMOUS EPITHELIAL CELL,UR FEW /LPF (FEW); WBC,URINE 0-4 /HPF (0-4)
[2022-03-09 16:43] LABS: ALANINE AMINOTRANSFERASE 16 U/L (12-78); ALBUMIN 3.2 G/DL (3.4-5.0); ALBUMIN/GLOBULIN RATIO 0.9 (1.1-1.5); ALKALINE PHOSPHATASE 130 IU/L (46-116); ANION GAP 6 (8-16); ASPARTATE AMINO TRANSFERASE 11 U/L (10-37); BILIRUBIN,TOTAL 0.1 MG/DL (0.1-1.0); BLOOD UREA NITROGEN 10 MG/DL (7-18); BUN/CREATININE RATIO 8.5 (6.6-38.0); CALCIUM 9.1 MG/DL (8.5-10.1); CHLORIDE 101 MMOL/L (99-107); CREATININE 1.17 MG/DL (0.40-0.90); LIPASE 127 U/L (73-393); POTASSIUM 4.7 MMOL/L (3.5-5.1); SODIUM 133 MMOL/L (135-145); TOTAL CARBON DIOXIDE 26.4 MMOL/L (24-32); TOTAL PROTEIN 6.6 G/DL (6.4-8.2); eGFR 47 ML/MIN
[2022-03-09 16:45] LABS: GLUCOSE 568 MG/DL (70-104)
[2022-03-09] MEDS ORDERED: normal saline 1000ML IV soln IVB ONE (17:05)
[2022-03-09] MEDS ORDERED: ondansetron/PF 4mg/2ml inj IV ONE (17:05)
[2022-03-09] MEDS ORDERED: morphine 4 MG/ML inj SYRINge IV PRN (17:30)
[2022-03-09] MEDS ORDERED: fentaNYL/PF 50MCG/1 ML 2ML syringe IV ONE (18:50)
[2022-03-09 20:47] VITALS: BP 131/74
== END 2022-03-09 20:34 | disposition home or self-care (01) ==
LOC: ER 15:33
DX: K86.1 Other chronic pancreatitis (principal); I25.10 Atherosclerotic heart disease of native coronary artery without angina pectoris; E78.00 Pure hypercholesterolemia, unspecified; I10 Essential (primary) hypertension; I25.2 Old myocardial infarction; J44.9 Chronic obstructive pulmonary disease, unspecified; K21.9 Gastro-esophageal reflux disease without esophagitis; E11.9 Type 2 diabetes mellitus without complications; G89.29 Other chronic pain; Z98.51 Tubal ligation status; Z98.890 Other specified postprocedural states; Z88.1 Allergy status to other antibiotic agents; Z88.5 Allergy status to narcotic agent; Z79.899 Other long term (current) drug therapy
CPT/HCPCS: 36415; 71045; 80053; 81001; 81025; 82948; 83690; 84484; 85025; 93005; 96361; 96374; 96375; 99285; J2270; J2405; J3010; J7030

== ENCOUNTER 2022-03-11 15:49 | Emergency (ER) | payer MEDICAID ==
[~2022-03-11] VITALS: Ht 157.5 cm; Wt 78.5 kg
[2022-03-11 16:39] VITALS: BP 154/70
[2022-03-11 17:20] LABS: BASOPHILS # (AUTO) 0.1 X10'3 (0-0.2); BASOPHILS % (AUTO) 0.9 % (0-1); EOSINOPHILS # (AUTO) 0.2 X10'3 (0-0.9); EOSINOPHILS % (AUTO) 2.6 % (0-6); HEMATOCRIT 39.5 % (35.0-45.0); HEMOGLOBIN 13.1 g/dl (12.0-16.0); LYMPHOCYTES # (AUTO) 1.7 X10'3 (1.1-4.8); LYMPHOCYTES % (AUTO) 18.8 % (21-51); MEAN CORPUSCULAR HEMOGLOBIN 26.5 PG (27.0-31.0); MEAN CORPUSCULAR HGB CONC 33.1 g/dL (33.0-36.5); MEAN CORPUSCULAR VOLUME 80.1 FL (78-98); MEAN PLATELET VOLUME 8.8 FL (7.4-10.4); MONOCYTES # (AUTO) 0.4 X10'3 (0-0.9); MONOCYTES % (AUTO) 4.8 % (2-12); NEUTROPHILS # (AUTO) 6.4 X10'3 (1.8-7.7); NEUTROPHILS % (AUTO) 72.9 % (42-75); PLATELET COUNT 232 X10'3 (140-440); RED BLOOD COUNT 4.94 X10'6 (4.20-5.60); RED CELL DISTRIBUTION WIDTH 14.6 % (11.5-14.5); WHITE BLOOD COUNT 8.8 X10'3 (4.5-11.0)
[2022-03-11 18:53] LABS: ALANINE AMINOTRANSFERASE 14 U/L (12-78); ALBUMIN 3.2 G/DL (3.4-5.0); ALBUMIN/GLOBULIN RATIO 0.9 (1.1-1.5); ALKALINE PHOSPHATASE 111 IU/L (46-116); ANION GAP 8 (8-16); ASPARTATE AMINO TRANSFERASE 13 U/L (10-37); BILIRUBIN,TOTAL 0.2 MG/DL (0.1-1.0); BLOOD UREA NITROGEN 11 MG/DL (7-18); BUN/CREATININE RATIO 11.8 (6.6-38.0); CALCIUM 9.3 MG/DL (8.5-10.1); CHLORIDE 103 MMOL/L (99-107); CREATININE 0.93 MG/DL (0.40-0.90); GLUCOSE 349 MG/DL (70-104); POTASSIUM 4.3 MMOL/L (3.5-5.1); SODIUM 135 MMOL/L (135-145); TOTAL CARBON DIOXIDE 24.1 MMOL/L (24-32); TOTAL PROTEIN 6.8 G/DL (6.4-8.2); eGFR 62 ML/MIN
== END 2022-03-11 22:29 | disposition home or self-care (01) ==
LOC: ER 15:51
DX: R07.89 Other chest pain (principal); I25.10 Atherosclerotic heart disease of native coronary artery without angina pectoris; E78.00 Pure hypercholesterolemia, unspecified; I10 Essential (primary) hypertension; I25.2 Old myocardial infarction; J44.9 Chronic obstructive pulmonary disease, unspecified; K21.9 Gastro-esophageal reflux disease without esophagitis; G89.29 Other chronic pain; F17.200 Nicotine dependence, unspecified, uncomplicated; Z98.51 Tubal ligation status; Z79.899 Other long term (current) drug therapy; Z88.1 Allergy status to other antibiotic agents
CPT/HCPCS: 36415; 71045; 80053; 83880; 84484; 85025; 93005; 99285

== ENCOUNTER 2022-05-16 12:53 | Emergency (ER) | payer MEDICAID ==
[~2022-05-16] VITALS: Ht 160 cm; Wt 79.5 kg
[2022-05-16 12:58] VITALS: BP 115/68
[2022-05-16] MEDS ORDERED: ibuprofen 200mg tablet PO ONE (14:30)
[2022-05-16] MEDS ORDERED: cephalexin 500mg capsule PO ONE (14:30)
[2022-05-16] MEDS ORDERED: CEPH500C81 PO (14:34)
== END 2022-05-16 15:01 | disposition home or self-care (01) ==
LOC: ER 12:53
DX: S90.464A Insect bite (nonvenomous), right lesser toe(s), initial encounter (principal); L03.115 Cellulitis of right lower limb; I25.10 Atherosclerotic heart disease of native coronary artery without angina pectoris; E78.00 Pure hypercholesterolemia, unspecified; I10 Essential (primary) hypertension; I25.2 Old myocardial infarction; J44.9 Chronic obstructive pulmonary disease, unspecified; K21.9 Gastro-esophageal reflux disease without esophagitis; E11.9 Type 2 diabetes mellitus without complications; G89.29 Other chronic pain; F32.A Depression, unspecified; Z98.51 Tubal ligation status; Z98.890 Other specified postprocedural states; Z60.2 Problems related to living alone; Z88.8 Allergy status to other drugs, medicaments and biological substances; Z88.1 Allergy status to other antibiotic agents; Z79.2 Long term (current) use of antibiotics; Z79.4 Long term (current) use of insulin; Z79.899 Other long term (current) drug therapy; W57.XXXA Bitten or stung by nonvenomous insect and other nonvenomous arthropods, initial encounter; Y93.89 Activity, other specified; Y92.89 Other specified places as the place of occurrence of the external cause; Y99.8 Other external cause status
CPT/HCPCS: 99283

== ENCOUNTER 2022-06-20 19:56 | Emergency (ER) | payer MEDICAID ==
[~2022-06-20] VITALS: Ht 157.5 cm; Wt 79.0 kg
[2022-06-20 20:31] VITALS: BP 126/56
[2022-06-20 20:51] LABS: BASOPHILS # (AUTO) 0.1 X10'3 (0-0.2); BASOPHILS % (AUTO) 0.8 % (0-1); EOSINOPHILS # (AUTO) 0.2 X10'3 (0-0.9); HEMATOCRIT 43.4 % (35.0-45.0); HEMOGLOBIN 14.6 g/dl (12.0-16.0); LYMPHOCYTES # (AUTO) 2.1 X10'3 (1.1-4.8); MEAN CORPUSCULAR HEMOGLOBIN 27.2 PG (27.0-31.0); MEAN CORPUSCULAR HGB CONC 33.5 g/dL (33.0-36.5); MEAN PLATELET VOLUME 8.1 FL (7.4-10.4); MONOCYTES # (AUTO) 0.6 X10'3 (0-0.9); MONOCYTES % (AUTO) 6.1 % (2-12); NEUTROPHILS # (AUTO) 6.3 X10'3 (1.8-7.7); NEUTROPHILS % (AUTO) 68.1 % (42-75); PLATELET COUNT 236 X10'3 (140-440); RED BLOOD COUNT 5.36 X10'6 (4.20-5.60); RED CELL DISTRIBUTION WIDTH 15.9 % (11.5-14.5); WHITE BLOOD COUNT 9.3 X10'3 (4.5-11.0)
[2022-06-20 21:09] LABS: ALANINE AMINOTRANSFERASE 15 U/L (12-78); ALBUMIN 3.5 G/DL (3.4-5.0); ALBUMIN/GLOBULIN RATIO 0.9 (1.1-1.5); ALKALINE PHOSPHATASE 110 IU/L (46-116); ANION GAP 7 (8-16); ASPARTATE AMINO TRANSFERASE 12 U/L (10-37); BILIRUBIN,TOTAL 0.3 MG/DL (0.1-1.0); BLOOD UREA NITROGEN 14 MG/DL (7-18); BUN/CREATININE RATIO 13.9 (6.6-38.0); CHLORIDE 101 MMOL/L (99-107); CREATININE 1.01 MG/DL (0.40-0.90); GLUCOSE 320 MG/DL (70-104); LIPASE 97 U/L (73-393); SODIUM 137 MMOL/L (135-145); TOTAL CARBON DIOXIDE 28.6 MMOL/L (24-32); TOTAL PROTEIN 7.3 G/DL (6.4-8.2); eGFR 56 ML/MIN
[2022-06-20 21:13] LABS: CLARITY,URINE CLEAR (Clear); COLOR,URINE YELLOW (Yellow); GLUCOSE, URINE >=1000 mg/dl (Neg); KETONES,URINE NEGATIVE (Neg); LEUKOCYTE ESTERASE ,URINE NEGATIVE (Neg); NITRITES, URINE NEGATIVE (Neg); OCCULT BLOOD,URINE NEGATIVE (Neg); PROTEIN,URINE NEGATIVE (Neg); UROBILINOGEN,URINE 0.2 E.U/dL (0.2-1.0)
[2022-06-20 21:16] LABS: URINE HCG NEGATIVE (NEG)
[2022-06-20 21:21] LABS: UA COLLECTION TYPE CLN CATCH MIDSTREAM
[2022-06-20 21:22] LABS: BACTERIA,URINE FEW /HPF (Neg); RBC,URINE NONE SEEN /HPF (0-2); SQUAMOUS EPITHELIAL CELL,UR MANY /LPF (FEW); WBC,URINE 0-4 /HPF (0-4)
--- NOTE | 2022-06-21 00:42 | NUR ---
PT ELOPPED PT SEEN LEAVING THE ER BY STAFF MD NULL
== END 2022-06-21 00:44 | disposition left against medical advice (07) ==
LOC: ER 19:57
DX: R10.9 Unspecified abdominal pain (principal); Z53.21 Procedure and treatment not carried out due to patient leaving prior to being seen by health care provider
CPT/HCPCS: 36415; 80053; 81001; 81025; 83690; 85025

== ENCOUNTER 2022-07-25 22:29 | Emergency (ER) | payer MEDICAID ==
[~2022-07-25] VITALS: Ht 157.5 cm; Wt 80.0 kg
[2022-07-25] MEDS ORDERED: normal saline 1000ML IV soln IVB ONE (23:05)
[2022-07-25] MEDS ORDERED: morphine 4 MG/ML inj SYRINge IV ONE (23:05)
[2022-07-25] MEDS ORDERED: ondansetron/PF 4mg/2ml inj IV ONE (23:05)
[2022-07-25 23:28] LABS: BASOPHILS # (AUTO) 0.1 X10'3 (0-0.2); EOSINOPHILS # (AUTO) 0.2 X10'3 (0-0.9); RED CELL DISTRIBUTION WIDTH 14.9 % (11.5-14.5)
[2022-07-25 23:30] LABS: EOSINOPHILS % (AUTO) 2.3 % (0-6); HEMATOCRIT 40.5 % (35.0-45.0); HEMOGLOBIN 13.5 g/dl (12.0-16.0); LYMPHOCYTES # (AUTO) 2.5 X10'3 (1.1-4.8); LYMPHOCYTES % (AUTO) 23.9 % (21-51); MEAN CORPUSCULAR HEMOGLOBIN 26.5 PG (27.0-31.0); MEAN CORPUSCULAR HGB CONC 33.3 g/dL (33.0-36.5); MEAN CORPUSCULAR VOLUME 79.4 FL (78-98); MEAN PLATELET VOLUME 8.3 FL (7.4-10.4); MONOCYTES # (AUTO) 0.7 X10'3 (0-0.9); MONOCYTES % (AUTO) 6.2 % (2-12); NEUTROPHILS # (AUTO) 6.9 X10'3 (1.8-7.7); NEUTROPHILS % (AUTO) 66.6 % (42-75); PLATELET COUNT 195 X10'3 (140-440); RED BLOOD COUNT 5.11 X10'6 (4.20-5.60); WHITE BLOOD COUNT 10.4 X10'3 (4.5-11.0)
[2022-07-25 23:43] LABS: ALANINE AMINOTRANSFERASE 18 U/L (12-78); ALBUMIN 2.9 G/DL (3.4-5.0); ALBUMIN/GLOBULIN RATIO 0.9 (1.1-1.5); ALKALINE PHOSPHATASE 98 IU/L (46-116); ANION GAP 9 (8-16); ASPARTATE AMINO TRANSFERASE 15 U/L (10-37); BILIRUBIN,TOTAL 0.2 MG/DL (0.1-1.0); BLOOD UREA NITROGEN 14 MG/DL (7-18); BUN/CREATININE RATIO 14.1 (6.6-38.0); CALCIUM 9.2 MG/DL (8.5-10.1); CHLORIDE 102 MMOL/L (99-107); CREATININE 0.99 MG/DL (0.40-0.90); GLUCOSE 256 MG/DL (70-104); POTASSIUM 3.8 MMOL/L (3.5-5.1); SODIUM 139 MMOL/L (135-145); TOTAL CARBON DIOXIDE 27.6 MMOL/L (24-32); TOTAL PROTEIN 6.3 G/DL (6.4-8.2); eGFR 57 ML/MIN
[2022-07-25 23:46] LABS: LIPASE 88 U/L (73-393); MAGNESIUM 1.8 MG/DL (1.5-2.4)
[2022-07-26] MEDS ORDERED: morphine 4 MG/ML inj SYRINge IV ONE (00:40)
[2022-07-26] MEDS ORDERED: ondansetron/PF 4mg/2ml inj IV ONE (00:40)
[2022-07-26 01:20] LABS: CLARITY,URINE SLIGHTLY CLOUDY (Clear); COLOR,URINE YELLOW (Yellow); GLUCOSE, URINE >=1000 mg/dl (Neg); KETONES,URINE NEGATIVE (Neg); LEUKOCYTE ESTERASE ,URINE NEGATIVE (Neg); NITRITES, URINE NEGATIVE (Neg); OCCULT BLOOD,URINE NEGATIVE (Neg); PH,URINE 5.5 (4.8-8.0); PROTEIN,URINE NEGATIVE (Neg); UROBILINOGEN,URINE 0.2 E.U/dL (0.2-1.0)
[2022-07-26 01:25] LABS: UA COLLECTION TYPE NON-SPECIFIED
[2022-07-26 01:32] LABS: BACTERIA,URINE 1+ /HPF (Neg); MUCUS STRANDS NONE SEEN /LPF (Neg); RBC,URINE 0-2 /HPF (0-2); SQUAMOUS EPITHELIAL CELL,UR FEW /LPF (FEW)
[2022-07-26] MEDS ORDERED: famotidine/PF 10 mg/ml inj IV ONE (01:45)
[2022-07-26] MEDS ORDERED: iohexol 300mg/ml 100ml inj. ONE (02:14)
[2022-07-26] MEDS ORDERED: HYDROmorphone inj. 0.5 MG/0.5 ML DISP.SYRIN IV ONE (03:45)
[2022-07-26] MEDS ORDERED: meclizine 12.5mg tablet PO ONE (03:45)
[2022-07-26 05:27] VITALS: BP 123/76
== END 2022-07-26 05:29 | disposition home or self-care (01) ==
LOC: ER 22:30
DX: R10.84 Generalized abdominal pain (principal); R53.1 Weakness; R11.0 Nausea; R42 Dizziness and giddiness; I25.10 Atherosclerotic heart disease of native coronary artery without angina pectoris; E78.00 Pure hypercholesterolemia, unspecified; I10 Essential (primary) hypertension; I25.2 Old myocardial infarction; J44.9 Chronic obstructive pulmonary disease, unspecified; K21.9 Gastro-esophageal reflux disease without esophagitis; E11.9 Type 2 diabetes mellitus without complications; G89.29 Other chronic pain; Z98.51 Tubal ligation status; Z98.890 Other specified postprocedural states; Z60.2 Problems related to living alone; Z88.8 Allergy status to other drugs, medicaments and biological substances; Z88.1 Allergy status to other antibiotic agents; Z79.2 Long term (current) use of antibiotics; Z79.4 Long term (current) use of insulin; Z79.899 Other long term (current) drug therapy
CPT/HCPCS: 36415; 71045; 74177; 80053; 81001; 83690; 83735; 84484; 85025; 87088; 93005; 96361; 96374; 96375; 96376; 99285; J1170; J2270; J2405; J3490; J7030; J8597; Q9967

== ENCOUNTER 2022-09-25 18:55 | Emergency (ER) | payer MEDICAID ==
[~2022-09-25] VITALS: Ht 157.5 cm; Wt 83.4 kg
[2022-09-25 19:45] LABS: BASOPHILS % (AUTO) 0.2 % (0-1); EOSINOPHILS # (AUTO) 0.2 X10'3 (0-0.9); EOSINOPHILS % (AUTO) 1.9 % (0-6); HEMATOCRIT 43.8 % (35.0-45.0); HEMOGLOBIN 14.4 g/dl (12.0-16.0); LYMPHOCYTES # (AUTO) 2.9 X10'3 (1.1-4.8); LYMPHOCYTES % (AUTO) 25.6 % (21-51); MEAN CORPUSCULAR HEMOGLOBIN 26.3 PG (27.0-31.0); MEAN CORPUSCULAR HGB CONC 32.8 g/dL (33.0-36.5); MEAN CORPUSCULAR VOLUME 80.3 FL (78-98); MEAN PLATELET VOLUME 8.1 FL (7.4-10.4); MONOCYTES # (AUTO) 0.6 X10'3 (0-0.9); MONOCYTES % (AUTO) 5.6 % (2-12); NEUTROPHILS # (AUTO) 7.6 X10'3 (1.8-7.7); NEUTROPHILS % (AUTO) 66.7 % (42-75); PLATELET COUNT 274 X10'3 (140-440); RED BLOOD COUNT 5.45 X10'6 (4.20-5.60); WHITE BLOOD COUNT 11.4 X10'3 (4.5-11.0)
[2022-09-25 19:59] LABS: COLOR,URINE YELLOW (Yellow); GLUCOSE, URINE NEGATIVE (Neg); KETONES,URINE NEGATIVE (Neg); LEUKOCYTE ESTERASE ,URINE NEGATIVE (Neg); NITRITES, URINE NEGATIVE (Neg); OCCULT BLOOD,URINE NEGATIVE (Neg); PH,URINE 5.5 (4.8-8.0); PROTEIN,URINE NEGATIVE (Neg); UROBILINOGEN,URINE 0.2 E.U/dL (0.2-1.0)
[2022-09-25 20:01] LABS: ALANINE AMINOTRANSFERASE 17 U/L (12-78); ALBUMIN 3.5 G/DL (3.4-5.0); ALBUMIN/GLOBULIN RATIO 0.9 (1.1-1.5); ALKALINE PHOSPHATASE 113 IU/L (46-116); AMYLASE 47 U/L (25-115); ANION GAP 6 (8-16); ASPARTATE AMINO TRANSFERASE 14 U/L (10-37); BILIRUBIN,TOTAL 0.2 MG/DL (0.1-1.0); BLOOD UREA NITROGEN 11 MG/DL (7-18); BUN/CREATININE RATIO 8.5 (6.6-38.0); CHLORIDE 102 MMOL/L (99-107); GLUCOSE 199 MG/DL (70-104); LIPASE 84 U/L (73-393); POTASSIUM 4.1 MMOL/L (3.5-5.1); SODIUM 136 MMOL/L (135-145); TOTAL CARBON DIOXIDE 28.1 MMOL/L (24-32); TOTAL PROTEIN 7.3 G/DL (6.4-8.2); eGFR 42 ML/MIN
[2022-09-25 20:04] LABS: CLARITY,URINE SLIGHTLY CLOUDY (Clear); UA COLLECTION TYPE CLN CATCH MIDSTREAM
[2022-09-25 20:05] LABS: RBC,URINE 0-2 /HPF (0-2); SQUAMOUS EPITHELIAL CELL,UR MANY /LPF (FEW); WBC,URINE 0-4 /HPF (0-4)
[2022-09-25 20:06] LABS: BACTERIA,URINE FEW /HPF (Neg)
[2022-09-26] MEDS ORDERED: morphine 4 MG/ML inj SYRINge IV ONE ×3 (00:05→03:20)
[2022-09-26] MEDS ORDERED: ondansetron/PF 4mg/2ml inj IV ONE ×2 (00:05→01:40)
[2022-09-26] MEDS ORDERED: normal saline 1000ML IV soln IVB ONE (00:05)
[2022-09-26] MEDS ORDERED: iohexol 300mg/ml 100ml inj. ONE (00:29)
[2022-09-26] MEDS ORDERED: HYDROmorphone inj. 0.5 MG/0.5 ML DISP.SYRIN IV ONE (03:20)
[2022-09-26] MEDS ORDERED: metoclopramide 5 mg/ml inj IV ONE (03:45)
[2022-09-26] MEDS ORDERED: LIDOcaine Viscous 15ml cup MM PRN (05:10)
[2022-09-26] MEDS ORDERED: mag hydrox/Alum hydrox/simeth 30ml oral suspension PO ONE (05:10)
[2022-09-26 05:39] VITALS: BP 168/92
[2022-09-26] MEDS ORDERED: famotidine/PF 10 mg/ml inj IV ONE (05:45)
[2022-09-26] MEDS ORDERED: ONDA4TAB12 PO (07:24)
== END 2022-09-26 07:33 | disposition home or self-care (01) ==
LOC: ER 18:56
DX: K86.1 Other chronic pancreatitis (principal); I11.9 Hypertensive heart disease without heart failure; E78.00 Pure hypercholesterolemia, unspecified; K21.9 Gastro-esophageal reflux disease without esophagitis; J44.9 Chronic obstructive pulmonary disease, unspecified; E11.9 Type 2 diabetes mellitus without complications; F32.A Depression, unspecified; Z91.018 Allergy to other foods; Z88.6 Allergy status to analgesic agent; Z79.899 Other long term (current) drug therapy; Z88.2 Allergy status to sulfonamides
CPT/HCPCS: 36415; 74177; 80053; 81001; 82150; 83690; 85025; 96361; 96374; 96375; 96376; 99285; J1170; J2270; J2405; J2765; J3490; J7030; Q9967

== ENCOUNTER 2023-01-26 09:30 | Emergency (ER) | payer MEDICAID ==
[~2023-01-26] VITALS: Ht 157.5 cm; Wt 88.0 kg
[~2023-01-26 09:30] MED LIST changes: +ONDA4TAB12 PO
[2023-01-26 09:53] LABS: BASOPHILS # (AUTO) 0.1 X10'3 (0-0.2); BASOPHILS % (AUTO) 0.9 % (0-1); EOSINOPHILS # (AUTO) 0.3 X10'3 (0-0.9); EOSINOPHILS % (AUTO) 2.3 % (0-6); HEMATOCRIT 41.1 % (35.0-45.0); LYMPHOCYTES # (AUTO) 2.6 X10'3 (1.1-4.8); LYMPHOCYTES % (AUTO) 22.4 % (21-51); MEAN CORPUSCULAR HEMOGLOBIN 26.9 PG (27.0-31.0); MEAN CORPUSCULAR VOLUME 79.1 FL (78-98); MEAN PLATELET VOLUME 7.9 FL (7.4-10.4); MONOCYTES # (AUTO) 0.7 X10'3 (0-0.9); MONOCYTES % (AUTO) 6.1 % (2-12); NEUTROPHILS % (AUTO) 68.3 % (42-75); PLATELET COUNT 249 X10'3 (140-440); RED BLOOD COUNT 5.19 X10'6 (4.20-5.60); RED CELL DISTRIBUTION WIDTH 15.1 % (11.5-14.5); WHITE BLOOD COUNT 11.6 X10'3 (4.5-11.0)
[2023-01-26 10:09] LABS: ALANINE AMINOTRANSFERASE 20 U/L (12-78); ALBUMIN 3.3 G/DL (3.4-5.0); ALBUMIN/GLOBULIN RATIO 0.8 (1.1-1.5); ALKALINE PHOSPHATASE 113 IU/L (46-116); ANION GAP 6 (8-16); ASPARTATE AMINO TRANSFERASE 14 U/L (10-37); BILIRUBIN,TOTAL 0.2 MG/DL (0.1-1.0); BLOOD UREA NITROGEN 12 MG/DL (7-18); BUN/CREATININE RATIO 12.2 (10.0-20.0); CALCIUM 9.5 MG/DL (8.5-10.1); CHLORIDE 104 MMOL/L (99-107); CREATININE 0.98 MG/DL (0.40-0.90); GLUCOSE 125 MG/DL (70-104); POTASSIUM 4.1 MMOL/L (3.5-5.1); SODIUM 139 MMOL/L (135-145); TOTAL CARBON DIOXIDE 29.5 MMOL/L (24-32); TOTAL PROTEIN 7.4 G/DL (6.4-8.2); eGFR 58 ML/MIN
[2023-01-26 10:18] LABS: MAGNESIUM 2.2 MG/DL (1.5-2.4)
--- NOTE | 2023-01-26 11:29 | NUR ---
I AGREE WITH THE PHYSICAL ASSESSMENT PER Gregorio JAEGER LVN.
[2023-01-26 12:13] VITALS: BP 133/75
[2023-01-26] MEDS ORDERED: AMOX-117 PO ×4 (12:57→13:29)
[2023-01-26] MEDS ORDERED: AZIT250T27 PO ×4 (12:57→13:29)
== END 2023-01-26 13:13 | disposition home or self-care (01) ==
LOC: ER 09:31
DX: J18.9 Pneumonia, unspecified organism (principal); I11.9 Hypertensive heart disease without heart failure; E78.00 Pure hypercholesterolemia, unspecified; J44.9 Chronic obstructive pulmonary disease, unspecified; K21.9 Gastro-esophageal reflux disease without esophagitis; E11.9 Type 2 diabetes mellitus without complications; Z91.018 Allergy to other foods; Z88.8 Allergy status to other drugs, medicaments and biological substances; Z79.899 Other long term (current) drug therapy
CPT/HCPCS: 36415; 71045; 80053; 83735; 83880; 84484; 85025; 93005; 99285

== ENCOUNTER 2023-01-27 21:29 | Emergency (ER) | payer MEDICAID ==
[~2023-01-27] VITALS: Ht 157.5 cm; Wt 90.0 kg
[~2023-01-27 21:29] MED LIST changes: +AMOX-117 PO; +AZIT250T27 PO
[2023-01-27 21:39] VITALS: BP 135/86
== END 2023-01-28 00:16 | disposition left against medical advice (07) ==
LOC: ER 21:30
DX: Z00.00 Encounter for general adult medical examination without abnormal findings (principal); Z53.21 Procedure and treatment not carried out due to patient leaving prior to being seen by health care provider
CPT/HCPCS: 99281

== ENCOUNTER 2023-02-05 16:37 | Emergency (ER) | payer MEDICAID ==
[~2023-02-05] VITALS: Ht 157.5 cm; Wt 87.7 kg
[2023-02-05 16:42] VITALS: BP 142/63
--- NOTE | 2023-02-05 17:10 | NUR ---
PT PRESENTS TO THE ER STATING " THE MEDICATION THAT WAS GIVEN TO ME THE OTHER DAY WAS MAKING ME SICK AND DIZZY SO I STOPPED TAKING IT"
[2023-02-05] MEDS ORDERED: ipratropium/albuterol 3ml nebule NEB ONE (17:25)
[2023-02-05] MEDS ORDERED: predniSONE 20 mg tablet PO ONE (17:25)
[2023-02-05] MEDS ORDERED: BUDE180A INH (17:54)
[2023-02-05] MEDS ORDERED: ALBU6.7H14 INH (17:54)
[2023-02-05] MEDS ORDERED: PRED20TA PO (17:54)
== END 2023-02-05 18:28 | disposition home or self-care (01) ==
LOC: ER 16:38
DX: J45.909 Unspecified asthma, uncomplicated (principal); F17.200 Nicotine dependence, unspecified, uncomplicated; E78.00 Pure hypercholesterolemia, unspecified; J44.9 Chronic obstructive pulmonary disease, unspecified; E11.9 Type 2 diabetes mellitus without complications; G89.29 Other chronic pain; F32.A Depression, unspecified; Z91.018 Allergy to other foods; Z88.8 Allergy status to other drugs, medicaments and biological substances
CPT/HCPCS: 71046; 94640; 99283; J7512

== ENCOUNTER 2023-02-26 22:28 | Emergency (ER) | payer MEDICAID ==
[~2023-02-26] VITALS: Ht 157.5 cm; Wt 89.5 kg
[~2023-02-26 22:28] MED LIST changes: +ALBU6.7H14 INH; +BUDE180A INH
--- NOTE | 2023-02-26 22:30 | NUR ---
DR BAZAN MADE AWARE OF PTS 44 FSBG. PT GIVEN 4 OZ ORANGE JUICE PO. ASYMPTOMATIC. NO NEW ORDERS
[2023-02-26 22:56] LABS: BASOPHILS # (AUTO) 0.2 X10'3 (0-0.2); BASOPHILS % (AUTO) 0.9 % (0-1); EOSINOPHILS # (AUTO) 0.4 X10'3 (0-0.9); EOSINOPHILS % (AUTO) 1.8 % (0-6); HEMATOCRIT 38.6 % (35.0-45.0); HEMOGLOBIN 12.7 g/dl (12.0-16.0); LYMPHOCYTES # (AUTO) 3.7 X10'3 (1.1-4.8); MEAN CORPUSCULAR HEMOGLOBIN 26.1 PG (27.0-31.0); MEAN CORPUSCULAR HGB CONC 32.8 g/dL (33.0-36.5); MEAN CORPUSCULAR VOLUME 79.5 FL (78-98); MEAN PLATELET VOLUME 7.5 FL (7.4-10.4); MONOCYTES # (AUTO) 0.8 X10'3 (0-0.9); MONOCYTES % (AUTO) 3.8 % (2-12); NEUTROPHILS # (AUTO) 15.5 X10'3 (1.8-7.7); NEUTROPHILS % (AUTO) 75.5 % (42-75); PLATELET COUNT 294 X10'3 (140-440); RED BLOOD COUNT 4.85 X10'6 (4.20-5.60); RED CELL DISTRIBUTION WIDTH 15.3 % (11.5-14.5); WHITE BLOOD COUNT 20.5 X10'3 (4.5-11.0)
[2023-02-26 23:04] LABS: URINE HCG NEGATIVE (NEG)
[2023-02-26 23:12] LABS: ALANINE AMINOTRANSFERASE 18 U/L (12-78); ALBUMIN 3.3 G/DL (3.4-5.0); ALBUMIN/GLOBULIN RATIO 0.9 (1.1-1.5); ALKALINE PHOSPHATASE 105 IU/L (46-116); ANION GAP 8 (8-16); ASPARTATE AMINO TRANSFERASE 16 U/L (10-37); BILIRUBIN,TOTAL 0.2 MG/DL (0.1-1.0); BLOOD UREA NITROGEN 13 MG/DL (7-18); CHLORIDE 106 MMOL/L (99-107); CREATININE 1.08 MG/DL (0.40-0.90); GLUCOSE 57 MG/DL (70-104); LIPASE < 50 U/L (73-393); POTASSIUM 4.1 MMOL/L (3.5-5.1); SODIUM 139 MMOL/L (135-145); TOTAL CARBON DIOXIDE 25.4 MMOL/L (24-32); TOTAL PROTEIN 6.8 G/DL (6.4-8.2); eGFR 52 ML/MIN
[2023-02-26 23:17] LABS: CLARITY,URINE CLEAR (Clear); COLOR,URINE YELLOW (Yellow); GLUCOSE, URINE NEGATIVE (Neg); KETONES,URINE NEGATIVE (Neg); LEUKOCYTE ESTERASE ,URINE NEGATIVE (Neg); NITRITES, URINE NEGATIVE (Neg); OCCULT BLOOD,URINE NEGATIVE (Neg); PROTEIN,URINE NEGATIVE (Neg); UROBILINOGEN,URINE 0.2 E.U/dL (0.2-1.0)
[2023-02-26 23:27] LABS: UA COLLECTION TYPE CLN CATCH MIDSTREAM
[2023-02-26] MEDS ORDERED: famotidine/PF 10 mg/ml inj IV ONE (23:30)
[2023-02-26] MEDS ORDERED: morphine 4 MG/ML inj SYRINge IV ONE (23:30)
[2023-02-26] MEDS ORDERED: normal saline 1000ml 1,000 ML IV ONE (23:30)
[2023-02-26] MEDS ORDERED: ondansetron/PF 4mg/2ml inj IV ONE (23:30)
[2023-02-26] MEDS ORDERED: pantoprazole 40mg IV 40 MG in normal saline 100ml IV soln 100 ML IV ONE (23:30)
[2023-02-26] MEDS ORDERED: pantoprazole 40MG/NS 100ML BAG 100 ML IV ONE (23:45)
--- NOTE | 2023-02-27 00:08 | NUR ---
PT GIVEN ANOTHER 4 OZ ORANGE JUICE FOR MOST RECENT FSBG. DR BAZAN NOTIFIED, D5NS ORDERED
[2023-02-27] MEDS: dextrose 5%-normal saline 1,000 ML IV SCH ×2 (00:21→02:04)
[2023-02-27] MEDS ORDERED: bisacodyl 5mg tablet.DR PO ONE (03:00)
[2023-02-27] MEDS ORDERED: HYDROcodone/acetaminophen 10/325mg tab PO ONE (03:00)
[2023-02-27 03:17] VITALS: BP 102/50
== END 2023-02-27 03:19 | disposition home or self-care (01) ==
LOC: ER 22:29
DX: K59.00 Constipation, unspecified (principal); R10.84 Generalized abdominal pain; R11.2 Nausea with vomiting, unspecified; I25.10 Atherosclerotic heart disease of native coronary artery without angina pectoris; E78.00 Pure hypercholesterolemia, unspecified; I10 Essential (primary) hypertension; I25.2 Old myocardial infarction; J44.9 Chronic obstructive pulmonary disease, unspecified; K21.9 Gastro-esophageal reflux disease without esophagitis; E11.9 Type 2 diabetes mellitus without complications; G89.29 Other chronic pain; F32.9 Major depressive disorder, single episode, unspecified; Z98.51 Tubal ligation status; Z60.2 Problems related to living alone; Z88.2 Allergy status to sulfonamides; Z88.8 Allergy status to other drugs, medicaments and biological substances; Z91.018 Allergy to other foods; Z79.899 Other long term (current) drug therapy
CPT/HCPCS: 36415; 74176; 80053; 81003; 81025; 82948; 83690; 84145; 85025; 96361; 96374; 96375; 99285; C9113; J2270; J2405; J3490; J7030; J7042

== ENCOUNTER 2023-05-12 07:18 | Emergency (ER) | payer MEDICAID ==
[~2023-05-12] VITALS: Ht 157.5 cm; Wt 89.1 kg
[~2023-05-12 07:18] MED LIST changes: +ROPI2TAB53 PO; -ROPI2TAB7 PO
[2023-05-12 07:29] VITALS: BP 150/76; PULSE 70; TEMP 97.8; O2SAT 98
[2023-05-12] MEDS ORDERED: normal saline 1000ML IV soln IVB ONE (08:55)
[2023-05-12] MEDS ORDERED: LORazepam 2 mg/ml vial IV ONE (08:55)
[2023-05-12] MEDS ORDERED: morphine 2 MG/ML inj. syringe IV PRN (08:55)
[2023-05-12] MEDS ORDERED: ketorolac tromethamine 15mg/ml inj. IV ONE (08:55)
[2023-05-12 09:25] LABS: BASOPHILS # (AUTO) 0.1 X10'3 (0-0.2); BASOPHILS % (AUTO) 1.1 % (0-1); EOSINOPHILS # (AUTO) 0.3 X10'3 (0-0.9); EOSINOPHILS % (AUTO) 2.8 % (0-6); HEMATOCRIT 37.9 % (35.0-45.0); HEMOGLOBIN 12.4 g/dl (12.0-16.0); LYMPHOCYTES % (AUTO) 21.7 % (21-51); MEAN CORPUSCULAR HEMOGLOBIN 25.8 PG (27.0-31.0); MEAN CORPUSCULAR HGB CONC 32.7 g/dL (33.0-36.5); MEAN CORPUSCULAR VOLUME 79.1 FL (78-98); MEAN PLATELET VOLUME 8.3 FL (7.4-10.4); MONOCYTES # (AUTO) 0.6 X10'3 (0-0.9); MONOCYTES % (AUTO) 6.9 % (2-12); NEUTROPHILS # (AUTO) 6.1 X10'3 (1.8-7.7); NEUTROPHILS % (AUTO) 67.5 % (42-75); PLATELET COUNT 225 X10'3 (140-440); RED BLOOD COUNT 4.79 X10'6 (4.20-5.60); RED CELL DISTRIBUTION WIDTH 15.1 % (11.5-14.5)
[2023-05-12 09:50] LABS: ALANINE AMINOTRANSFERASE 17 U/L (12-78); ALBUMIN/GLOBULIN RATIO 0.8 (1.1-1.5); ALKALINE PHOSPHATASE 91 IU/L (46-116); ANION GAP 9 (8-16); ASPARTATE AMINO TRANSFERASE 13 U/L (10-37); BILIRUBIN,TOTAL 0.2 MG/DL (0.1-1.0); BLOOD UREA NITROGEN 11 MG/DL (7-18); BUN/CREATININE RATIO 11.1 (10.0-20.0); CALCIUM 9.4 MG/DL (8.5-10.1); CHLORIDE 105 MMOL/L (99-107); CREATININE 0.99 MG/DL (0.40-0.90); LIPASE < 50 U/L (73-393); MAGNESIUM 2.2 MG/DL (1.5-2.4); POTASSIUM 4.4 MMOL/L (3.5-5.1); SODIUM 138 MMOL/L (135-145); TOTAL CARBON DIOXIDE 24.4 MMOL/L (24-32); TOTAL PROTEIN 6.7 G/DL (6.4-8.2); eCRCL 48 ML/MIN; eGFR 57 ML/MIN
[2023-05-12 10:19] LABS: GLUCOSE 102 MG/DL (70-104)
[2023-05-12] MEDS ORDERED: iohexol 300mg/ml 100ml inj. ONE (10:35)
[2023-05-12 11:46] VITALS: RESP 16
[2023-05-12] MEDS ORDERED: HYDR-3973 PO (13:08)
[2023-05-12] MEDS ORDERED: ONDA4TAB12 PO (13:08)
== END 2023-05-12 13:46 | disposition home or self-care (01) ==
LOC: ER 07:19
DX: K86.3 Pseudocyst of pancreas (principal); K86.1 Other chronic pancreatitis; I25.10 Atherosclerotic heart disease of native coronary artery without angina pectoris; E78.00 Pure hypercholesterolemia, unspecified; I25.2 Old myocardial infarction; J44.9 Chronic obstructive pulmonary disease, unspecified; E11.9 Type 2 diabetes mellitus without complications; G89.29 Other chronic pain; Z98.51 Tubal ligation status; Z79.899 Other long term (current) drug therapy; Z91.018 Allergy to other foods; Z79.01 Long term (current) use of anticoagulants
CPT/HCPCS: 36415; 74177; 80053; 83690; 83735; 85025; 93880; 96361; 96374; 96375; 99285; J1885; J2060; J2270; J7030; Q9967

== ENCOUNTER 2023-05-16 14:01 | Emergency (ER) | payer MEDICAID ==
[~2023-05-16] VITALS: Ht 172.7 cm; Wt 100.0 kg
[~2023-05-16 14:01] MED LIST changes: +HYDR-3973 PO
[2023-05-16 14:17] VITALS: TEMP 98
[2023-05-16 16:00] LABS: BILIRUBIN,URINE NEGATIVE (Neg); CLARITY,URINE CLEAR (Clear); COLOR,URINE YELLOW (Yellow); GLUCOSE, URINE NEGATIVE (Neg); KETONES,URINE NEGATIVE (Neg); LEUKOCYTE ESTERASE ,URINE NEGATIVE (Neg); NITRITES, URINE NEGATIVE (Neg); OCCULT BLOOD,URINE NEGATIVE (Neg); PH,URINE 5.5 (4.8-8.0); PROTEIN,URINE NEGATIVE (Neg); UROBILINOGEN,URINE 0.2 E.U/dL (0.2-1.0)
[2023-05-16 16:02] LABS: UA COLLECTION TYPE CLN CATCH MIDSTREAM
[2023-05-16 16:05] LABS: BASOPHILS # (AUTO) 0.1 X10'3 (0-0.2); EOSINOPHILS # (AUTO) 0.2 X10'3 (0-0.9); EOSINOPHILS % (AUTO) 1.6 % (0-6); HEMATOCRIT 41.2 % (35.0-45.0); HEMOGLOBIN 13.6 g/dl (12.0-16.0); LYMPHOCYTES # (AUTO) 2.7 X10'3 (1.1-4.8); LYMPHOCYTES % (AUTO) 21.6 % (21-51); MEAN CORPUSCULAR HEMOGLOBIN 25.9 PG (27.0-31.0); MEAN CORPUSCULAR HGB CONC 33.1 g/dL (33.0-36.5); MEAN CORPUSCULAR VOLUME 78.5 FL (78-98); MEAN PLATELET VOLUME 7.7 FL (7.4-10.4); MONOCYTES # (AUTO) 0.7 X10'3 (0-0.9); MONOCYTES % (AUTO) 5.4 % (2-12); NEUTROPHILS # (AUTO) 8.6 X10'3 (1.8-7.7); NEUTROPHILS % (AUTO) 70.4 % (42-75); PLATELET COUNT 284 X10'3 (140-440); RED BLOOD COUNT 5.25 X10'6 (4.20-5.60); RED CELL DISTRIBUTION WIDTH 15.2 % (11.5-14.5); WHITE BLOOD COUNT 12.3 X10'3 (4.5-11.0)
[2023-05-16 16:20] LABS: ALANINE AMINOTRANSFERASE 14 U/L (12-78); ALBUMIN 3.7 G/DL (3.4-5.0); ALBUMIN/GLOBULIN RATIO 0.9 (1.1-1.5); ALKALINE PHOSPHATASE 100 IU/L (46-116); ANION GAP 5 (8-16); ASPARTATE AMINO TRANSFERASE 12 U/L (10-37); BILIRUBIN,TOTAL 0.3 MG/DL (0.1-1.0); BLOOD UREA NITROGEN 13 MG/DL (7-18); BUN/CREATININE RATIO 10.9 (10.0-20.0); CALCIUM 9.6 MG/DL (8.5-10.1); CHLORIDE 99 MMOL/L (99-107); CREATININE 1.19 MG/DL (0.40-0.90); GLUCOSE 102 MG/DL (70-104); POTASSIUM 3.8 MMOL/L (3.5-5.1); SODIUM 135 MMOL/L (135-145); TOTAL PROTEIN 7.6 G/DL (6.4-8.2); eCRCL 51 ML/MIN; eGFR 46 ML/MIN
[2023-05-16 16:21] LABS: AMYLASE 31 U/L (25-115); LIPASE < 50 U/L (73-393)
--- NOTE | 2023-05-16 23:07 | NUR ---
pt saw in room 18 per MD and he ordered a CT. Idalmis the medical records technician will start her IV. The pt is not in a "room", just being seen by provider to assist w/diagnosis and pt movement.
[2023-05-16] MEDS ORDERED: iohexol 300mg/ml 100ml inj. ONE (23:17)
[2023-05-17] MEDS ORDERED: HYDR-3965 PO (01:52)
[2023-05-17] MEDS ORDERED: ONDA4TAB12 PO (01:56)
[2023-05-17] MEDS ORDERED: morphine 4 MG/ML inj SYRINge IV ONE (02:05)
[2023-05-17] MEDS ORDERED: ondansetron/PF 4mg/2ml inj IV ONE (02:05)
[2023-05-17 02:19] VITALS: BP 143/73; PULSE 85; RESP 16; O2SAT 96
== END 2023-05-17 02:20 | disposition home or self-care (01) ==
LOC: ER 14:03
DX: K86.89 Other specified diseases of pancreas (principal); R11.10 Vomiting, unspecified; I11.9 Hypertensive heart disease without heart failure; E78.00 Pure hypercholesterolemia, unspecified; J44.9 Chronic obstructive pulmonary disease, unspecified; K21.9 Gastro-esophageal reflux disease without esophagitis; E11.9 Type 2 diabetes mellitus without complications; F32.A Depression, unspecified; Z91.018 Allergy to other foods; Z88.8 Allergy status to other drugs, medicaments and biological substances; Z79.899 Other long term (current) drug therapy
CPT/HCPCS: 36415; 74177; 80053; 81003; 82150; 83690; 85025; 96374; 96375; 99285; J2270; J2405; Q9967

== ENCOUNTER 2023-05-20 19:32 | Emergency (ER) | payer MEDICAID ==
[~2023-05-20] VITALS: Ht 157.5 cm; Wt 89.1 kg
[~2023-05-20 19:32] MED LIST changes: +HYDR-3965 PO
[2023-05-20 20:14] VITALS: TEMP 98.5
[2023-05-20 20:28] LABS: BASOPHILS # (AUTO) 0.1 X10'3 (0-0.2); EOSINOPHILS # (AUTO) 0.1 X10'3 (0-0.9); EOSINOPHILS % (AUTO) 1.2 % (0-6); HEMATOCRIT 40.4 % (35.0-45.0); HEMOGLOBIN 13.2 g/dl (12.0-16.0); LYMPHOCYTES # (AUTO) 2.4 X10'3 (1.1-4.8); LYMPHOCYTES % (AUTO) 20.2 % (21-51); MEAN CORPUSCULAR HEMOGLOBIN 25.9 PG (27.0-31.0); MEAN CORPUSCULAR HGB CONC 32.8 g/dL (33.0-36.5); MEAN PLATELET VOLUME 7.8 FL (7.4-10.4); MONOCYTES # (AUTO) 0.7 X10'3 (0-0.9); MONOCYTES % (AUTO) 5.6 % (2-12); NEUTROPHILS # (AUTO) 8.7 X10'3 (1.8-7.7); PLATELET COUNT 270 X10'3 (140-440); RED BLOOD COUNT 5.11 X10'6 (4.20-5.60); RED CELL DISTRIBUTION WIDTH 15.3 % (11.5-14.5)
[2023-05-20 20:46] LABS: ALANINE AMINOTRANSFERASE 17 U/L (12-78); ALBUMIN 3.4 G/DL (3.4-5.0); ALBUMIN/GLOBULIN RATIO 0.9 (1.1-1.5); ALKALINE PHOSPHATASE 87 IU/L (46-116); ANION GAP 8 (8-16); ASPARTATE AMINO TRANSFERASE 15 U/L (10-37); BILIRUBIN,TOTAL 0.4 MG/DL (0.1-1.0); BLOOD UREA NITROGEN 14 MG/DL (7-18); BUN/CREATININE RATIO 13.9 (10.0-20.0); CALCIUM 9.9 MG/DL (8.5-10.1); CHLORIDE 102 MMOL/L (99-107); CREATININE 1.01 MG/DL (0.40-0.90); GLUCOSE 107 MG/DL (70-104); LIPASE < 50 U/L (73-393); POTASSIUM 3.8 MMOL/L (3.5-5.1); SODIUM 135 MMOL/L (135-145); TOTAL PROTEIN 7.3 G/DL (6.4-8.2); eCRCL 47 ML/MIN; eGFR 56 ML/MIN
[2023-05-20 23:15] LABS: BILIRUBIN,URINE NEGATIVE (Neg); COLOR,URINE YELLOW (Yellow); GLUCOSE, URINE NEGATIVE (Neg); KETONES,URINE NEGATIVE (Neg); LEUKOCYTE ESTERASE ,URINE NEGATIVE (Neg); NITRITES, URINE NEGATIVE (Neg); OCCULT BLOOD,URINE NEGATIVE (Neg); PH,URINE 5.5 (4.8-8.0); PROTEIN,URINE NEGATIVE (Neg); UROBILINOGEN,URINE 0.2 E.U/dL (0.2-1.0)
[2023-05-20] MEDS ORDERED: morphine 4 MG/ML inj SYRINge IV ONE (23:15)
[2023-05-20] MEDS ORDERED: ondansetron/PF 4mg/2ml inj IV ONE (23:15)
[2023-05-20] MEDS ORDERED: normal saline 1000ml 1,000 ML IV ONE (23:15)
[2023-05-20] MEDS ORDERED: proCHLORperazine 10 MG/2 ml inj IV ONE (23:15)
[2023-05-20 23:19] LABS: UA COLLECTION TYPE CLN CATCH MIDSTREAM
[2023-05-20 23:21] LABS: CLARITY,URINE SLIGHTLY CLOUDY (Clear)
[2023-05-20 23:23] LABS: BACTERIA,URINE FEW /HPF (Neg); SQUAMOUS EPITHELIAL CELL,UR FEW /LPF (FEW); TRANSITIONAL EPI CELLS,URINE FEW /HPF
[2023-05-21] MEDS ORDERED: PROM25SU9 RC (00:39)
[2023-05-21] MEDS ORDERED: PROC-8 PO (00:39)
[2023-05-21] MEDS ORDERED: metoclopramide 5 mg/ml inj IV ONE (00:40)
[2023-05-21 01:01] VITALS: BP 138/62; PULSE 68; RESP 16; O2SAT 99
== END 2023-05-21 01:04 | disposition home or self-care (01) ==
LOC: ER 19:33
DX: K86.1 Other chronic pancreatitis (principal); R11.2 Nausea with vomiting, unspecified; E78.00 Pure hypercholesterolemia, unspecified; I11.9 Hypertensive heart disease without heart failure; K21.9 Gastro-esophageal reflux disease without esophagitis; J44.9 Chronic obstructive pulmonary disease, unspecified; F32.A Depression, unspecified; E11.9 Type 2 diabetes mellitus without complications
CPT/HCPCS: 36415; 80053; 81001; 83690; 85025; 87088; 96374; 96375; 99284; J0780; J2270; J2405; J2765; J7030

== ENCOUNTER 2023-06-14 16:20 | Emergency (ER) | payer MEDICAID ==
[~2023-06-14] VITALS: Ht 157.5 cm; Wt 88.2 kg
[~2023-06-14 16:20] MED LIST changes: -HYDR-3973 PO; +PROC-8 PO; +PROM25SU9 RC
[2023-06-14 17:46] LABS: URINE HCG NEGATIVE (NEG)
[2023-06-14 17:47] LABS: BILIRUBIN,URINE NEGATIVE (Neg); CLARITY,URINE CLEAR (Clear); COLOR,URINE YELLOW (Yellow); GLUCOSE, URINE NEGATIVE (Neg); KETONES,URINE NEGATIVE (Neg); LEUKOCYTE ESTERASE ,URINE NEGATIVE (Neg); NITRITES, URINE NEGATIVE (Neg); OCCULT BLOOD,URINE NEGATIVE (Neg); PH,URINE 5.5 (4.8-8.0); PROTEIN,URINE NEGATIVE (Neg); UROBILINOGEN,URINE 0.2 E.U/dL (0.2-1.0)
[2023-06-14 17:48] LABS: UA COLLECTION TYPE CLN CATCH MIDSTREAM
[2023-06-14 17:52] LABS: BASOPHILS # (AUTO) 0.2 X10'3 (0-0.2); BASOPHILS % (AUTO) 1.8 % (0-1); EOSINOPHILS # (AUTO) 0.2 X10'3 (0-0.9); EOSINOPHILS % (AUTO) 1.6 % (0-6); HEMATOCRIT 42.2 % (35.0-45.0); LYMPHOCYTES # (AUTO) 2.7 X10'3 (1.1-4.8); LYMPHOCYTES % (AUTO) 23.8 % (21-51); MEAN CORPUSCULAR HEMOGLOBIN 26.3 PG (27.0-31.0); MEAN CORPUSCULAR HGB CONC 33.2 g/dL (33.0-36.5); MEAN CORPUSCULAR VOLUME 79.2 FL (78-98); MEAN PLATELET VOLUME 8.2 FL (7.4-10.4); MONOCYTES # (AUTO) 0.5 X10'3 (0-0.9); MONOCYTES % (AUTO) 4.8 % (2-12); NEUTROPHILS # (AUTO) 7.7 X10'3 (1.8-7.7); PLATELET COUNT 259 X10'3 (140-440); RED BLOOD COUNT 5.33 X10'6 (4.20-5.60); WHITE BLOOD COUNT 11.4 X10'3 (4.5-11.0)
[2023-06-14 17:59] LABS: ALANINE AMINOTRANSFERASE 19 U/L (12-78); ALBUMIN 3.7 G/DL (3.4-5.0); ALBUMIN/GLOBULIN RATIO 0.9 (1.1-1.5); ALKALINE PHOSPHATASE 97 IU/L (46-116); ANION GAP 12 (8-16); ASPARTATE AMINO TRANSFERASE 18 U/L (10-37); BILIRUBIN,TOTAL 0.3 MG/DL (0.1-1.0); BLOOD UREA NITROGEN 10 MG/DL (7-18); BUN/CREATININE RATIO 9.6 (10.0-20.0); CALCIUM 10.1 MG/DL (8.5-10.1); CHLORIDE 100 MMOL/L (99-107); CREATININE 1.04 MG/DL (0.40-0.90); GLUCOSE 175 MG/DL (70-104); LIPASE < 50 U/L (73-393); POTASSIUM 4.1 MMOL/L (3.5-5.1); SODIUM 136 MMOL/L (135-145); TOTAL CARBON DIOXIDE 24.4 MMOL/L (24-32); TOTAL PROTEIN 7.8 G/DL (6.4-8.2); eCRCL 46 ML/MIN; eGFR 54 ML/MIN
[2023-06-14] MEDS ORDERED: normal saline 1000ML IV soln IVB ONE (22:35)
[2023-06-14] MEDS ORDERED: pantoprazole 40 MG vial IV ONE (22:35)
[2023-06-14] MEDS ORDERED: pantoprazole 40MG/NS 100ML BAG 100 ML IV ONE (22:50)
[2023-06-15 00:59] VITALS: BP 119/55; PULSE 83; RESP 16; TEMP 98; O2SAT 97
== END 2023-06-15 01:01 | disposition home or self-care (01) ==
LOC: ER 16:22
DX: K59.03 Drug induced constipation (principal); R05.9 Cough, unspecified; K59.00 Constipation, unspecified; F17.200 Nicotine dependence, unspecified, uncomplicated; I11.0 Hypertensive heart disease with heart failure; E78.00 Pure hypercholesterolemia, unspecified; J44.9 Chronic obstructive pulmonary disease, unspecified; K21.9 Gastro-esophageal reflux disease without esophagitis; F32.A Depression, unspecified
CPT/HCPCS: 36415; 74022; 80053; 81003; 81025; 83690; 84145; 85025; 96365; 99284; C9113; J7030

== ENCOUNTER 2023-09-06 18:57 | Inpatient (IN) | payer MEDICAID ==
[~2023-09-06] VITALS: Ht 157.5 cm; Wt 85.2 kg
[~2023-09-06 18:57] MED LIST changes: -HYDR-3965 PO
[2023-09-06 19:16] LABS: BASOPHILS # (AUTO) 0.2 X10'3 (0-0.2); BASOPHILS % (AUTO) 1.7 % (0-1); EOSINOPHILS # (AUTO) 0.3 X10'3 (0-0.9); EOSINOPHILS % (AUTO) 1.9 % (0-6); HEMOGLOBIN 14.1 g/dl (12.0-16.0); LYMPHOCYTES # (AUTO) 3.2 X10'3 (1.1-4.8); MEAN CORPUSCULAR HEMOGLOBIN 27.1 PG (27.0-31.0); MEAN CORPUSCULAR HGB CONC 33.6 g/dL (33.0-36.5); MEAN CORPUSCULAR VOLUME 80.9 FL (78-98); MEAN PLATELET VOLUME 8.5 FL (7.4-10.4); MONOCYTES # (AUTO) 0.6 X10'3 (0-0.9); MONOCYTES % (AUTO) 4.3 % (2-12); NEUTROPHILS # (AUTO) 10.2 X10'3 (1.8-7.7); NEUTROPHILS % (AUTO) 70.1 % (42-75); PLATELET COUNT 247 X10'3 (140-440); RED CELL DISTRIBUTION WIDTH 14.6 % (11.5-14.5); WHITE BLOOD COUNT 14.6 X10'3 (4.5-11.0)
[2023-09-06 19:28] LABS: ALANINE AMINOTRANSFERASE 18 U/L (12-78); ALBUMIN 3.5 G/DL (3.4-5.0); ALBUMIN/GLOBULIN RATIO 0.9 (1.1-1.5); ALKALINE PHOSPHATASE 114 IU/L (46-116); ANION GAP 9 (8-16); ASPARTATE AMINO TRANSFERASE 20 U/L (10-37); BILIRUBIN,TOTAL 0.2 MG/DL (0.1-1.0); BLOOD UREA NITROGEN 16 MG/DL (7-18); BUN/CREATININE RATIO 14.2 (10.0-20.0); CALCIUM 9.5 MG/DL (8.5-10.1); CHLORIDE 100 MMOL/L (99-107); CREATININE 1.13 MG/DL (0.40-0.90); GLUCOSE 145 MG/DL (70-104); POTASSIUM 3.8 MMOL/L (3.5-5.1); SODIUM 135 MMOL/L (135-145); TOTAL CARBON DIOXIDE 25.9 MMOL/L (24-32); TOTAL PROTEIN 7.4 G/DL (6.4-8.2); eCRCL 41 ML/MIN; eGFR 49 ML/MIN
[2023-09-06 19:36] LABS: PRO BRAIN NATRIURETIC PEPTIDE 115 PG/ML (0-125)
[2023-09-06 19:52] LABS: LIPASE 25 U/L (16-77)
[2023-09-06 19:53] LABS: BILIRUBIN,URINE NEGATIVE (Neg); CLARITY,URINE CLEAR (Clear); COLOR,URINE YELLOW (Yellow); GLUCOSE, URINE >=1000 mg/dl (Neg); KETONES,URINE NEGATIVE (Neg); LEUKOCYTE ESTERASE ,URINE NEGATIVE (Neg); NITRITES, URINE NEGATIVE (Neg); OCCULT BLOOD,URINE NEGATIVE (Neg); PH,URINE 5.5 (4.8-8.0); PROTEIN,URINE NEGATIVE (Neg); UROBILINOGEN,URINE 0.2 E.U/dL (0.2-1.0)
[2023-09-06 20:02] LABS: BACTERIA,URINE NONE SEEN /HPF (Neg); MUCUS STRANDS NONE SEEN /LPF (Neg); RBC,URINE 0-2 /HPF (0-2); SQUAMOUS EPITHELIAL CELL,UR MODERATE /LPF (FEW); UA COLLECTION TYPE CLN CATCH MIDSTREAM; WBC,URINE 0-4 /HPF (0-4)
[2023-09-06] MEDS ORDERED: zolpidem 5mg tablet PO ONE (22:20)
[2023-09-06] MEDS ORDERED: ROPINIRole 1mg tablet PO ONE (22:20)
[2023-09-06] MEDS ORDERED: acetaminophen 325mg tablet PO ONE (22:25)
[2023-09-06 22:48] LABS: D-DIMER < 0.19 MG/L FEU (0-0.50)
[2023-09-06] MEDS ORDERED: ZOLP5TAB8 PO (22:51)
[2023-09-06] MEDS ORDERED: PER5325T PO (22:51)
[2023-09-06] MEDS ORDERED: DESV50TA20 PO (22:51)
[2023-09-06] MEDS ORDERED: DAPA5TAB PO (22:51)
[2023-09-07] VITALS (17 sets, daily range): BP systolic 101–137; BP diastolic 41–77; PULSE 62–98; RESP 16–22; TEMP 97.2–98.3; O2SAT 92–100
[2023-09-07] MEDS ORDERED: acetaminophen 650mg rectal suppository RC PRN (00:15)
[2023-09-07] MEDS ORDERED: metoclopramide 5 mg/ml inj IV PRN (00:15)
[2023-09-07] MEDS ORDERED: ipratropium/albuterol 3ml nebule NEB PRN (00:15)
[2023-09-07] MEDS ORDERED: bisacodyl 10mg suppository rectal RC PRN (00:15)
[2023-09-07] MEDS ORDERED: magnesium hydroxide 30ml (MOM) UD suspension PO PRN (00:15)
[2023-09-07] MEDS ORDERED: morphine 2 MG/ML inj. syringe IV PRN ×2 (00:15)
[2023-09-07] MEDS ORDERED: acetaminophen 325mg tablet PO PRN ×2 (00:15)
[2023-09-07] MEDS ORDERED: mag hydrox/Alum hydrox/simeth 30ml oral suspension PO PRN (00:15)
[2023-09-07] MEDS ORDERED: HYDROcodone/acetaminophen 5mg/325mg tablet PO PRN (00:15)
[2023-09-07] MEDS ORDERED: regadenoson 0.4mg/5ml syringe IV PRN (00:20)
[2023-09-07] MEDS ORDERED: aminophylline 250mg/10ml inj. IV PRN (00:20)
[2023-09-07] MEDS ORDERED: nitroGLYCERIN 0.4mg SUBLingual tab SL PRN (00:20)
[2023-09-07] MEDS ORDERED: metoprolol tartrate 1mg/ml inj IV PRN (00:20)
[2023-09-07] MEDS ORDERED: dextrose 50%-water 50ml dispensing syringe IV PRN ×2 (00:20)
[2023-09-07] MEDS ORDERED: MESSAGE TO PHARMACY PO ONE (00:20)
[2023-09-07] MEDS ORDERED: glucagon, human recombinant 1mg kit SUBCUT PRN (00:20)
[2023-09-07] MEDS ORDERED: DEXTROSE 15 GM of carb/4 tabs (each vial/BOTTLE has 4 tablets) PO PRN ×2 (00:20)
[2023-09-07] MEDS: ondansetron/PF 4mg/2ml inj IV PRN ×2 (00:36→09:59)
[2023-09-07] MEDS: normal saline 1000ml 1,000 ML IV SCH ×3 (00:39→20:13)
[2023-09-07] MEDS: HYDROcodone/acetaminophen 10/325mg tab PO PRN ×3 (00:39→15:15)
[2023-09-07 00:42] LABS: MAGNESIUM 2.3 MG/DL (1.5-2.4); PHOSPHORUS 4.3 MG/DL (2.3-4.5)
[2023-09-07 00:51] LABS: HEMOGLOBIN A1C 7.1 % (4.5-6.2)
[2023-09-07 01:22] LABS: APTT 22 SECONDS (22-32); PROTHROMBIN TIME 9.3 SECONDS (9.0-12.0)
[2023-09-07 01:30] LABS: INR 0.9 INR
[2023-09-07] MEDS: CefTRIAXone/D5W-Rocephin 1gm 50 ML IV SCH (07:42)
[2023-09-07] MEDS: methylPREDNISolone sod succ 125mg/2ml vial IV SCH ×2 (07:44→15:16)
[2023-09-07] MEDS: nicotine 21mg patch - 24 hr TD SCH (07:51)
[2023-09-07] MEDS: nitroGLYCERIN 0.1mg/hour patch TD SCH (07:52)
[2023-09-07] MEDS: heparin, porcine 5000 units/ml vial SQ SCH ×2 (07:54→19:41)
[2023-09-07] MEDS: docusate sod 100mg capsule PO SCH ×2 (07:55→19:44)
[2023-09-07] MEDS: pantoprazole 40mg Tablet.DR PO SCH (07:56)
[2023-09-07] MEDS: carVEDilol 3.125mg tablet PO SCH ×2 (07:56→19:44)
[2023-09-07] MEDS: atorvastatin 20mg tablet PO SCH (07:56)
[2023-09-07] MEDS: aspirin 81mg tab.chew PO SCH (10:01)
[2023-09-07] MEDS: azithromycin/NS 500mg/250ml 250 ML IV SCH (10:01)
[2023-09-07] MEDS: insulin Lispro (HumaLOG) vial - multi-dose SQ SCH ×2 (17:32→19:38)
[2023-09-07] MEDS: ondansetron 4mg rapidly disintigrating tab PO PRN (20:07)
[2023-09-07] MEDS: insulin glargine (Lantus) pen - multi-dose SQ SCH ×2 (20:10→22:34)
[2023-09-07] MEDS ORDERED: temazepam 15mg capsule PO PRN (21:00)
[2023-09-07] MEDS ORDERED: ROPINIRole 1mg tablet PO SCH (21:00)
[2023-09-08] VITALS (8 sets, daily range): BP systolic 103–135; BP diastolic 57–85; PULSE 65–95; RESP 15–18; TEMP 97.2–97.9; O2SAT 94–98
[2023-09-08] MEDS: methylPREDNISolone sod succ 125mg/2ml vial IV SCH ×3 (00:49→16:21)
[2023-09-08] MEDS: ondansetron 4mg rapidly disintigrating tab PO PRN (05:15)
[2023-09-08] MEDS: HYDROcodone/acetaminophen 10/325mg tab PO PRN ×2 (05:16→12:10)
[2023-09-08] MEDS: normal saline 1000ml 1,000 ML IV SCH (05:17)
[2023-09-08 06:10] LABS: BASOPHILS % (AUTO) 0.1 % (0-1); EOSINOPHILS % (AUTO) 0 % (0-6); HEMATOCRIT 38.1 % (35.0-45.0); HEMOGLOBIN 12.4 g/dl (12.0-16.0); LYMPHOCYTES # (AUTO) 0.9 X10'3 (1.1-4.8); LYMPHOCYTES % (AUTO) 10.4 % (21-51); MEAN CORPUSCULAR HGB CONC 32.6 g/dL (33.0-36.5); MEAN CORPUSCULAR VOLUME 82.8 FL (78-98); MONOCYTES # (AUTO) 0.1 X10'3 (0-0.9); MONOCYTES % (AUTO) 1.1 % (2-12); NEUTROPHILS % (AUTO) 88.4 % (42-75); PLATELET COUNT 193 X10'3 (140-440); RED CELL DISTRIBUTION WIDTH 14.6 % (11.5-14.5)
[2023-09-08 06:32] LABS: ALANINE AMINOTRANSFERASE 17 U/L (12-78); ALBUMIN 2.9 G/DL (3.4-5.0); ALBUMIN/GLOBULIN RATIO 0.8 (1.1-1.5); ALKALINE PHOSPHATASE 82 IU/L (46-116); ANION GAP 11 (8-16); ASPARTATE AMINO TRANSFERASE 13 U/L (10-37); BILIRUBIN,TOTAL 0.2 MG/DL (0.1-1.0); BLOOD UREA NITROGEN 18 MG/DL (7-18); CALCIUM 8.6 MG/DL (8.5-10.1); CHLORIDE 104 MMOL/L (99-107); CHOL/HDL RATIO 3.5 (0.00-4.99); CHOLESTEROL 209 MG/DL (0-200); GLUCOSE 239 MG/DL (70-104); HDL CHOLESTEROL 60 MG/DL (35-60); LDL CHOLESTEROL 127 MG/DL (50-100); POTASSIUM 4.5 MMOL/L (3.5-5.1); SODIUM 136 MMOL/L (135-145); TOTAL CARBON DIOXIDE 21.3 MMOL/L (24-32); TOTAL PROTEIN 6.5 G/DL (6.4-8.2); TRIGLYCERIDES 96 MG/DL (20-135); eCRCL 47 ML/MIN; eGFR 56 ML/MIN
[2023-09-08] MEDS: heparin, porcine 5000 units/ml vial SQ SCH (08:00)
[2023-09-08] MEDS: nitroGLYCERIN 0.1mg/hour patch TD SCH ×2 (08:00→12:38)
[2023-09-08] MEDS: insulin Lispro (HumaLOG) vial - multi-dose SQ SCH ×3 (08:02→13:31)
[2023-09-08] MEDS: CefTRIAXone/D5W-Rocephin 1gm 50 ML IV SCH (08:07)
[2023-09-08] MEDS: aspirin 81mg tab.chew PO SCH (08:10)
[2023-09-08] MEDS: pantoprazole 40mg Tablet.DR PO SCH (08:10)
[2023-09-08] MEDS: carVEDilol 3.125mg tablet PO SCH (08:11)
[2023-09-08] MEDS: atorvastatin 20mg tablet PO SCH (08:11)
[2023-09-08] MEDS: docusate sod 100mg capsule PO SCH (08:11)
[2023-09-08] MEDS: nicotine 21mg patch - 24 hr TD SCH (08:14)
[2023-09-08] MEDS: azithromycin/NS 500mg/250ml 250 ML IV SCH (10:21)
[2023-09-08] MEDS ORDERED: ASPI81TA53 PO (16:28)
[2023-09-08] MEDS ORDERED: COR3.125T PO (16:28)
[2023-09-08] MEDS ORDERED: PANT40TA54 PO (16:28)
[2023-09-08] MEDS ORDERED: ATOR20TA66 PO (16:28)
== END 2023-09-08 17:00 | disposition home or self-care (01) | DRG 198 ==
LOC: ER 18:58 → ED HOLD 09-07 00:16 → PCU 3S 09-07 01:58
PROVIDERS: ADMIT Family Medicine; ATTEND Internal Medicine
PROC: 4A02XM4 Measurement of Cardiac Total Activity, External Approach (ICD-10-PCS; principal; 2023-09-07)
PROC: 3E073KZ Introduction of Other Diagnostic Substance into Coronary Artery, Percutaneous Approach (ICD-10-PCS; 2023-09-07)
DX: I25.119 Atherosclerotic heart disease of native coronary artery with unspecified angina pectoris (principal); I13.0 Hypertensive heart and chronic kidney disease with heart failure and stage 1 through stage 4 chronic kidney disease, or unspecified chronic kidney disease; E11.51 Type 2 diabetes mellitus with diabetic peripheral angiopathy without gangrene; I50.32 Chronic diastolic (congestive) heart failure; E11.22 Type 2 diabetes mellitus with diabetic chronic kidney disease; G25.81 Restless legs syndrome; G89.4 Chronic pain syndrome; J44.1 Chronic obstructive pulmonary disease with (acute) exacerbation; K21.9 Gastro-esophageal reflux disease without esophagitis; N18.9 Chronic kidney disease, unspecified; E78.00 Pure hypercholesterolemia, unspecified; K86.1 Other chronic pancreatitis; Z20.822 Contact with and (suspected) exposure to COVID-19; F17.210 Nicotine dependence, cigarettes, uncomplicated; F32.A Depression, unspecified; Z88.1 Allergy status to other antibiotic agents; Z88.2 Allergy status to sulfonamides; Z88.8 Allergy status to other drugs, medicaments and biological substances; Z91.018 Allergy to other foods; Z79.4 Long term (current) use of insulin; Z79.899 Other long term (current) drug therapy; I25.2 Old myocardial infarction; Z98.51 Tubal ligation status
CPT/HCPCS: 36415; 71045; 78452; 80053; 80061; 81001; 82948; 83036; 83605; 83690; 83735; 83880; 84100; 84145; 84484; 85025; 85379; 85610; 85730; 87040; 87811; 93005; 93017; 94760; 99285; A9500; G0378; J0456; J0696; J1644; J1815; J2405; J2785; J2930; J7030; J7070

== ENCOUNTER 2023-10-04 05:13 | Emergency (ER) | payer MEDICAID ==
[~2023-10-04] VITALS: Ht 157.5 cm; Wt 85.0 kg
[~2023-10-04 05:13] MED LIST changes: -ALBU18HF2 INH; -ALBU6.7H14 INH; -AMOX-117 PO; +ASPI81TA53 PO; +ATOR20TA66 PO; -AZIT250T27 PO; +COR3.125T PO; +DAPA5TAB PO; +DESV50TA20 PO; -FLUO-10 PO; +PANT40TA54 PO; +PER5325T PO; -PROM25SU9 RC; -QUET100T34 PO; -TRAM50TA2 PO; +ZOLP5TAB8 PO
[2023-10-04 07:56] LABS: BASOPHILS # (AUTO) 0.1 X10'3 (0-0.2); BASOPHILS % (AUTO) 1.3 % (0-1); EOSINOPHILS # (AUTO) 0.1 X10'3 (0-0.9); EOSINOPHILS % (AUTO) 1.2 % (0-6); HEMATOCRIT 41.1 % (35.0-45.0); HEMOGLOBIN 13.3 g/dl (12.0-16.0); LYMPHOCYTES # (AUTO) 1.3 X10'3 (1.1-4.8); LYMPHOCYTES % (AUTO) 18.5 % (21-51); MEAN CORPUSCULAR HEMOGLOBIN 27.1 PG (27.0-31.0); MEAN CORPUSCULAR HGB CONC 32.2 g/dL (33.0-36.5); MONOCYTES # (AUTO) 0.7 X10'3 (0-0.9); NEUTROPHILS # (AUTO) 4.6 X10'3 (1.8-7.7); PLATELET COUNT 160 X10'3 (140-440); RED CELL DISTRIBUTION WIDTH 14.6 % (11.5-14.5); WHITE BLOOD COUNT 6.8 X10'3 (4.5-11.0)
[2023-10-04 08:13] LABS: ALANINE AMINOTRANSFERASE 20 U/L (12-78); ALBUMIN 3.3 G/DL (3.4-5.0); ALBUMIN/GLOBULIN RATIO 0.8 (1.1-1.5); ALKALINE PHOSPHATASE 96 IU/L (46-116); ANION GAP 7 (8-16); ASPARTATE AMINO TRANSFERASE 27 U/L (10-37); BILIRUBIN,TOTAL 0.3 MG/DL (0.1-1.0); BLOOD UREA NITROGEN 10 MG/DL (7-18); BUN/CREATININE RATIO 10.5 (10.0-20.0); CALCIUM 9.6 MG/DL (8.5-10.1); CHLORIDE 101 MMOL/L (99-107); CREATININE 0.95 MG/DL (0.40-0.90); GLUCOSE 132 MG/DL (70-104); POTASSIUM 3.9 MMOL/L (3.5-5.1); SODIUM 137 MMOL/L (135-145); TOTAL CARBON DIOXIDE 28.9 MMOL/L (24-32); TOTAL PROTEIN 7.2 G/DL (6.4-8.2); eCRCL 49 ML/MIN; eGFR 60 ML/MIN
[2023-10-04 08:21] LABS: LIPASE 41 U/L (16-77); PRO BRAIN NATRIURETIC PEPTIDE 463 PG/ML (0-125)
[2023-10-04] MEDS ORDERED: NIRM1TAB PO (11:04)
[2023-10-04] MEDS ORDERED: NIRM1TAB5 PO (11:04)
[2023-10-04 11:19] VITALS: BP 129/89; PULSE 79; RESP 19; TEMP 97.8; O2SAT 96
== END 2023-10-04 11:22 | disposition home or self-care (01) ==
LOC: ER 05:14
DX: U07.1 COVID-19 (principal); E78.00 Pure hypercholesterolemia, unspecified; I11.0 Hypertensive heart disease with heart failure; K21.9 Gastro-esophageal reflux disease without esophagitis; E11.9 Type 2 diabetes mellitus without complications; F32.A Depression, unspecified; Z91.013 Allergy to seafood; Z88.8 Allergy status to other drugs, medicaments and biological substances; Z79.899 Other long term (current) drug therapy; Z88.5 Allergy status to narcotic agent
CPT/HCPCS: 36415; 71045; 80053; 83690; 83880; 84484; 85025; 93005; 99285

== ENCOUNTER 2023-11-14 18:01 | Emergency (ER) | payer MEDICAID ==
[~2023-11-14] VITALS: Ht 157.5 cm; Wt 87.1 kg
[~2023-11-14 18:01] MED LIST changes: +NIRM1TAB PO; +NIRM1TAB5 PO
[2023-11-14 18:11] VITALS: BP 153/80; PULSE 86; RESP 16; TEMP 98.4; O2SAT 97
[2023-11-14] MEDS ORDERED: LORA10TA7 PO (18:19)
== END 2023-11-14 18:52 | disposition home or self-care (01) ==
LOC: ER 18:02
DX: J31.0 Chronic rhinitis (principal); I11.0 Hypertensive heart disease with heart failure; E78.00 Pure hypercholesterolemia, unspecified; J45.909 Unspecified asthma, uncomplicated; K21.9 Gastro-esophageal reflux disease without esophagitis; F32.A Depression, unspecified; E11.9 Type 2 diabetes mellitus without complications; Z91.040 Latex allergy status; Z91.018 Allergy to other foods; Z88.8 Allergy status to other drugs, medicaments and biological substances; Z79.899 Other long term (current) drug therapy
CPT/HCPCS: 99282

== ENCOUNTER 2023-12-22 12:00 | Inpatient (IN) | payer MEDICAID ==
[~2023-12-22] VITALS: Ht 157.5 cm; Wt 80.8 kg
[~2023-12-22 12:00] MED LIST changes: +LORA10TA7 PO
[2023-12-22 12:35] LABS: BASOPHILS # (AUTO) 0.1 X10'3 (0-0.2); BASOPHILS % (AUTO) 0.8 % (0-1); EOSINOPHILS # (AUTO) 0.2 X10'3 (0-0.9); EOSINOPHILS % (AUTO) 2.6 % (0-6); HEMATOCRIT 40.8 % (35.0-45.0); HEMOGLOBIN 13.6 g/dl (12.0-16.0); LYMPHOCYTES % (AUTO) 20.9 % (21-51); MEAN CORPUSCULAR HEMOGLOBIN 26.5 PG (27.0-31.0); MEAN CORPUSCULAR HGB CONC 33.2 g/dL (33.0-36.5); MEAN CORPUSCULAR VOLUME 79.7 FL (78-98); MEAN PLATELET VOLUME 8.3 FL (7.4-10.4); MONOCYTES # (AUTO) 0.6 X10'3 (0-0.9); MONOCYTES % (AUTO) 6.5 % (2-12); NEUTROPHILS # (AUTO) 6.6 X10'3 (1.8-7.7); NEUTROPHILS % (AUTO) 69.2 % (42-75); PLATELET COUNT 215 X10'3 (140-440); RED BLOOD COUNT 5.12 X10'6 (4.20-5.60); RED CELL DISTRIBUTION WIDTH 14.9 % (11.5-14.5); WHITE BLOOD COUNT 9.6 X10'3 (4.5-11.0)
[2023-12-22 12:47] LABS: ALBUMIN 3.3 G/DL (3.4-5.0); ANION GAP 7 (8-16); BLOOD UREA NITROGEN 16 MG/DL (7-18); BUN/CREATININE RATIO 15.5 (10.0-20.0); CALCIUM 8.8 MG/DL (8.5-10.1); CHLORIDE 106 MMOL/L (99-107); CREATININE 1.03 MG/DL (0.40-0.90); GLUCOSE 156 MG/DL (70-104); MAGNESIUM 1.7 MG/DL (1.5-2.4); POTASSIUM 4.1 MMOL/L (3.5-5.1); PRO BRAIN NATRIURETIC PEPTIDE 134 PG/ML (0-125); SODIUM 139 MMOL/L (135-145); TOTAL CARBON DIOXIDE 26.2 MMOL/L (24-32); eCRCL 45 ML/MIN; eGFR 54 ML/MIN
[2023-12-22] MEDS: aspirin 81mg tab.chew PO ONE (13:16)
[2023-12-22] MEDS ORDERED: iohexol 350MG/ML 100ml bottle IV ONE (14:46)
[2023-12-22] MEDS: oxyCODONE/APAP 5-325mg tablet PO ONE (15:08)
[2023-12-22] MEDS: methylPREDNISolone sod succ 125mg/2ml vial IV ONE (15:08)
[2023-12-22] MEDS: normal saline 500ml IV soln 500 ML IV ONE (15:08)
[2023-12-22] MEDS ORDERED: magnesium Cl slow-release 64mg tablet PO PRN (17:05)
[2023-12-22] MEDS ORDERED: ondansetron/PF 4mg/2ml inj IV PRN (17:05)
[2023-12-22] MEDS ORDERED: potassium Cl 40MEQ/1/2NS 520ml 520 ML IV PRN (17:05)
[2023-12-22] MEDS ORDERED: potassium Cl 20 mEq SR tablet PO PRN ×2 (17:05)
[2023-12-22] MEDS ORDERED: acetaminophen 325mg tablet PO PRN ×2 (17:05)
[2023-12-22] MEDS ORDERED: magnesium 4gm in 100ml NS 100 ML IV PRN (17:05)
[2023-12-22] MEDS ORDERED: magnesium 2GM in 50ml NS 50 ML IV PRN (17:05)
[2023-12-22] MEDS ORDERED: HYDROcodone/acetaminophen 10/325mg tab PO PRN (17:05)
[2023-12-22] MEDS ORDERED: morphine 2 MG/ML inj. syringe IV PRN ×2 (17:05)
[2023-12-22] MEDS ORDERED: HYDROcodone/acetaminophen 5mg/325mg tablet PO PRN (17:05)
[2023-12-22] MEDS ORDERED: LORazepam 0.5 MG tablet PO PRN (18:25)
[2023-12-22] MEDS ORDERED: LORazepam 2 mg/ml vial IV PRN (18:25)
[2023-12-22] MEDS: LORazepam 1 MG tablet PO ONE (19:02)
[2023-12-22] MEDS: pantoprazole 40mg Tablet.DR PO SCH (19:02)
[2023-12-22] MEDS: mag hydrox/Alum hydrox/simeth 30ml oral suspension PO ONE (19:02)
[2023-12-22 19:16] VITALS: BP 137/75; PULSE 72; RESP 18; TEMP 98.7; O2SAT 97
[2023-12-22] MEDS ORDERED: DEXTROSE 15 GM of carb/4 tabs (each vial/BOTTLE has 4 tablets) PO PRN ×2 (20:55)
[2023-12-22] MEDS ORDERED: glucagon, human recombinant 1mg kit SUBCUT PRN (20:55)
[2023-12-22] MEDS ORDERED: dextrose 50%-water 50ml dispensing syringe IV PRN ×2 (20:55)
[2023-12-22] MEDS ORDERED: temazepam 15mg capsule PO PRN (21:00)
[2023-12-22 21:20] VITALS: RESP 18; O2SAT 97
[2023-12-22] MEDS: enoxaparin 40mg/0.4ml syringe SQ SCH (21:20)
[2023-12-22] MEDS: insulin glargine (Lantus) pen - multi-dose SQ SCH (21:25)
[2023-12-22] MEDS: insulin Lispro (HumaLOG) vial - multi-dose SQ SCH (21:27)
[2023-12-22] MEDS: normal saline 1000ml 1,000 ML IV SCH (21:51)
[2023-12-22 22:00] VITALS: BP 135/72; PULSE 81; RESP 19; TEMP 97.2; O2SAT 93
[2023-12-22] MEDS: zolpidem 5mg tablet PO PRN (22:24)
[2023-12-23 02:00] VITALS: BP 129/47; PULSE 86; RESP 19; TEMP 97.4; O2SAT 94
[2023-12-23 07:00] VITALS: BP 123/58; PULSE 92; RESP 25; TEMP 97.9; O2SAT 95
[2023-12-23 07:57] LABS: BASOPHILS % (AUTO) 0.5 % (0-1); EOSINOPHILS % (AUTO) 0 % (0-6); HEMOGLOBIN 12.8 g/dl (12.0-16.0); LYMPHOCYTES % (AUTO) 11.7 % (21-51); MEAN CORPUSCULAR HEMOGLOBIN 26.7 PG (27.0-31.0); MEAN CORPUSCULAR HGB CONC 33.6 g/dL (33.0-36.5); MEAN CORPUSCULAR VOLUME 79.5 FL (78-98); MEAN PLATELET VOLUME 8.8 FL (7.4-10.4); MONOCYTES # (AUTO) 0.2 X10'3 (0-0.9); MONOCYTES % (AUTO) 2.8 % (2-12); NEUTROPHILS # (AUTO) 7.5 X10'3 (1.8-7.7); PLATELET COUNT 202 X10'3 (140-440); RED BLOOD COUNT 4.78 X10'6 (4.20-5.60); RED CELL DISTRIBUTION WIDTH 14.9 % (11.5-14.5); WHITE BLOOD COUNT 8.8 X10'3 (4.5-11.0)
[2023-12-23 08:00] VITALS: RESP 14; O2SAT 98
[2023-12-23 08:27] LABS: ALANINE AMINOTRANSFERASE 16 U/L (12-78); ALBUMIN 2.9 G/DL (3.4-5.0); ALBUMIN/GLOBULIN RATIO 0.8 (1.1-1.5); ALKALINE PHOSPHATASE 86 IU/L (46-116); ANION GAP 10 (8-16); ASPARTATE AMINO TRANSFERASE 15 U/L (10-37); BILIRUBIN,TOTAL 0.2 MG/DL (0.1-1.0); BLOOD UREA NITROGEN 19 MG/DL (7-18); BUN/CREATININE RATIO 19.6 (10.0-20.0); CALCIUM 8.7 MG/DL (8.5-10.1); CHLORIDE 107 MMOL/L (99-107); CREATININE 0.97 MG/DL (0.40-0.90); GLUCOSE 300 MG/DL (70-104); SODIUM 140 MMOL/L (135-145); TOTAL CARBON DIOXIDE 23.1 MMOL/L (24-32); TOTAL PROTEIN 6.7 G/DL (6.4-8.2); eCRCL 48 ML/MIN; eGFR 58 ML/MIN
[2023-12-23] MEDS ORDERED: NICO1PAT41 TOP (10:06)
== END 2023-12-23 10:30 | disposition home or self-care (01) | DRG 198 ==
LOC: ER 12:01 → ED HOLD 17:08 → PCU 3S 19:19
PROVIDERS: ADMIT Internal Medicine; ATTEND Internal Medicine
PROC: B32T1ZZ Computerized Tomography (CT Scan) of Left Pulmonary Artery using Low Osmolar Contrast (ICD-10-PCS; principal; 2023-12-22)
DX: R07.89 Other chest pain (principal); I25.10 Atherosclerotic heart disease of native coronary artery without angina pectoris; E11.65 Type 2 diabetes mellitus with hyperglycemia; F32.A Depression, unspecified; J44.9 Chronic obstructive pulmonary disease, unspecified; K86.1 Other chronic pancreatitis; Z20.822 Contact with and (suspected) exposure to COVID-19; K21.9 Gastro-esophageal reflux disease without esophagitis; G89.29 Other chronic pain; F17.210 Nicotine dependence, cigarettes, uncomplicated; I10 Essential (primary) hypertension; I25.2 Old myocardial infarction; Z79.82 Long term (current) use of aspirin; E78.00 Pure hypercholesterolemia, unspecified; M19.09 Primary osteoarthritis, other specified site
CPT/HCPCS: 36415; 71045; 71275; 80048; 80053; 82948; 83735; 83880; 84484; 85025; 87081; 93005; 93306; 96361; 96374; 99285; G0378; J1650; J1815; J2930; J3490; J7030; J7040; Q9967

== ENCOUNTER 2024-03-22 15:18 | Outpatient (CLI) | payer MEDICAID, SELFPAY ==
[~2024-03-22 15:18] MED LIST changes: +NICO1PAT41 TOP
== END 2024-03-22 23:59 | disposition home or self-care (01) ==
LOC: RAD 15:18
PROVIDERS: ATTEND Internal Medicine
DX: R91.1 Solitary pulmonary nodule (principal); R05.3 Chronic cough
CPT/HCPCS: 71250

== ENCOUNTER 2024-04-08 22:12 | Emergency (ER) | payer MEDICAID ==
[~2024-04-08] VITALS: Ht 157.5 cm; Wt 85.0 kg
[~2024-04-08 22:12] MED LIST changes: +ONDA-243 PO; -ONDA4TAB12 PO
[2024-04-08 22:59] LABS: ALANINE AMINOTRANSFERASE 24 U/L (12-78); ALBUMIN 3.5 G/DL (3.4-5.0); ALBUMIN/GLOBULIN RATIO 0.9 (1.1-1.5); ALKALINE PHOSPHATASE 93 IU/L (46-116); ANION GAP 12 (8-16); ASPARTATE AMINO TRANSFERASE 11 U/L (10-37); BILIRUBIN,TOTAL 0.5 MG/DL (0.1-1.0); BLOOD UREA NITROGEN 10 MG/DL (7-18); BUN/CREATININE RATIO 9.4 (10.0-20.0); CALCIUM 9.5 MG/DL (8.5-10.1); CHLORIDE 101 MMOL/L (99-107); CREATININE 1.06 MG/DL (0.40-0.90); GLUCOSE 256 MG/DL (70-104); SODIUM 137 MMOL/L (135-145); TOTAL CARBON DIOXIDE 24.5 MMOL/L (24-32); TOTAL PROTEIN 7.5 G/DL (6.4-8.2); eCRCL 44 ML/MIN; eGFR 53 ML/MIN
[2024-04-08 23:03] LABS: LIPASE 38 U/L (16-77)
[2024-04-08 23:06] LABS: BASOPHILS # (AUTO) 0.1 X10'3 (0-0.2); BASOPHILS % (AUTO) 0.8 % (0-1); EOSINOPHILS # (AUTO) 0.2 X10'3 (0-0.9); EOSINOPHILS % (AUTO) 1.6 % (0-6); HEMATOCRIT 41.8 % (35.0-45.0); HEMOGLOBIN 13.7 g/dl (12.0-16.0); LYMPHOCYTES # (AUTO) 2.3 X10'3 (1.1-4.8); LYMPHOCYTES % (AUTO) 18.6 % (21-51); MEAN CORPUSCULAR HEMOGLOBIN 26.4 PG (27.0-31.0); MEAN CORPUSCULAR HGB CONC 32.9 g/dL (33.0-36.5); MEAN CORPUSCULAR VOLUME 80.2 FL (78-98); MEAN PLATELET VOLUME 8.6 FL (7.4-10.4); MONOCYTES # (AUTO) 0.6 X10'3 (0-0.9); MONOCYTES % (AUTO) 4.9 % (2-12); NEUTROPHILS # (AUTO) 9.3 X10'3 (1.8-7.7); NEUTROPHILS % (AUTO) 74.1 % (42-75); PLATELET COUNT 256 X10'3 (140-440); RED BLOOD COUNT 5.21 X10'6 (4.20-5.60); WHITE BLOOD COUNT 12.5 X10'3 (4.5-11.0)
[2024-04-08 23:22] LABS: BILIRUBIN,URINE NEGATIVE (Neg); CLARITY,URINE CLEAR (Clear); COLOR,URINE YELLOW (Yellow); GLUCOSE, URINE 250 mg/dl (Neg); KETONES,URINE NEGATIVE (Neg); LEUKOCYTE ESTERASE ,URINE NEGATIVE (Neg); NITRITES, URINE NEGATIVE (Neg); OCCULT BLOOD,URINE NEGATIVE (Neg); PROTEIN,URINE NEGATIVE (Neg); UROBILINOGEN,URINE 0.2 E.U/dL (0.2-1.0)
[2024-04-08 23:27] LABS: UA COLLECTION TYPE NON-SPECIFIED
[2024-04-08 23:30] LABS: URINE AMPHETAMINE SCREEN NEGATIVE (Neg); URINE BARBITUATE SCREEN NEGATIVE (Neg); URINE BENZODIAZEPINES SCREEN NEGATIVE (Neg); URINE CANNABINOID SCREEN NEGATIVE (Neg); URINE COCAINE SCREEN NEGATIVE (Neg); URINE METHADONE SCREEN NEGATIVE (Neg); URINE OPIATE SCREEN NEGATIVE (Neg); URINE PHENCYCLIDINE SCREEN NEGATIVE (Neg)
[2024-04-09 00:23] VITALS: BP 161/79; PULSE 95; RESP 17; TEMP 98.6; O2SAT 95
== END 2024-04-09 00:27 | disposition home or self-care (01) ==
LOC: ER 22:13
DX: R07.9 Chest pain, unspecified (principal); I25.10 Atherosclerotic heart disease of native coronary artery without angina pectoris; E78.00 Pure hypercholesterolemia, unspecified; I10 Essential (primary) hypertension; I25.2 Old myocardial infarction; J45.909 Unspecified asthma, uncomplicated; J44.9 Chronic obstructive pulmonary disease, unspecified; K21.9 Gastro-esophageal reflux disease without esophagitis; E11.9 Type 2 diabetes mellitus without complications; M19.90 Unspecified osteoarthritis, unspecified site; G89.29 Other chronic pain; F32.A Depression, unspecified; Z98.890 Other specified postprocedural states; Z98.51 Tubal ligation status; Z60.2 Problems related to living alone; Z88.8 Allergy status to other drugs, medicaments and biological substances; Z91.018 Allergy to other foods; Z79.82 Long term (current) use of aspirin; Z79.899 Other long term (current) drug therapy; Z79.51 Long term (current) use of inhaled steroids
CPT/HCPCS: 36415; 71045; 80053; 80305; 81003; 83690; 84484; 85025; 93005; 99285

== ENCOUNTER 2024-06-20 17:13 | Emergency (ER) | payer MEDICAID ==
[~2024-06-20] VITALS: Ht 157.5 cm; Wt 89.4 kg
[~2024-06-20 17:13] MED LIST changes: +CefTRIAXone 2gm/D5W 50ml BAG 50 ML IV SCH; +methylPREDNISolone sod succ/PF 40mg inj. IV SCH
[2024-06-20 17:50] LABS: BASOPHILS # (AUTO) 0.1 X10'3 (0-0.2); BASOPHILS % (AUTO) 0.9 % (0-1); EOSINOPHILS # (AUTO) 0.3 X10'3 (0-0.9); HEMATOCRIT 41.3 % (35.0-45.0); HEMOGLOBIN 13.5 g/dl (12.0-16.0); LYMPHOCYTES # (AUTO) 2.7 X10'3 (1.1-4.8); LYMPHOCYTES % (AUTO) 26.1 % (21-51); MEAN CORPUSCULAR HEMOGLOBIN 26.7 PG (27.0-31.0); MEAN CORPUSCULAR HGB CONC 32.6 g/dL (33.0-36.5); MEAN CORPUSCULAR VOLUME 81.7 FL (78-98); MEAN PLATELET VOLUME 8.4 FL (7.4-10.4); MONOCYTES # (AUTO) 0.6 X10'3 (0-0.9); MONOCYTES % (AUTO) 5.9 % (2-12); NEUTROPHILS # (AUTO) 6.6 X10'3 (1.8-7.7); NEUTROPHILS % (AUTO) 64.1 % (42-75); PLATELET COUNT 242 X10'3 (140-440); RED BLOOD COUNT 5.06 X10'6 (4.20-5.60); WHITE BLOOD COUNT 10.3 X10'3 (4.5-11.0)
[2024-06-20 18:12] LABS: ALBUMIN 3.4 G/DL (3.4-5.0); ANION GAP 9 (8-16); BLOOD UREA NITROGEN 17 MG/DL (7-18); BUN/CREATININE RATIO 13.8 (10.0-20.0); CALCIUM 9.3 MG/DL (8.5-10.1); CHLORIDE 105 MMOL/L (99-107); CREATININE 1.23 MG/DL (0.40-0.90); GLUCOSE 176 MG/DL (70-104); POTASSIUM 4.1 MMOL/L (3.5-5.1); PRO BRAIN NATRIURETIC PEPTIDE 55 PG/ML (0-125); SODIUM 140 MMOL/L (135-145); TOTAL CARBON DIOXIDE 25.7 MMOL/L (24-32); eCRCL 38 ML/MIN; eGFR 44 ML/MIN
[2024-06-20] MEDS ORDERED: iohexol 350MG/ML 100ml bottle IV ONE (20:32)
[2024-06-20] MEDS ORDERED: methylPREDNISolone sod succ/PF 40mg inj. IV SCH (21:57)
[2024-06-20] MEDS: CefTRIAXone 2gm/D5W 50ml BAG 50 ML IV SCH (22:02)
[2024-06-20] MEDS ORDERED: METHYLPREDNISOLONE SOD SUCC 125 MG/2ML INJ. IV SCH (22:03)
[2024-06-20] MEDS ORDERED: methylPREDNISolone sod succ 125mg/2ml vial IV SCH (22:03)
[2024-06-20] MEDS: methylPREDNISolone sod succ 125mg/2ml vial IV SCH (22:10)
[2024-06-20] MEDS ORDERED: AZIT-164 PO (22:35)
[2024-06-20] MEDS ORDERED: PRED20TA PO (22:35)
[2024-06-20 22:50] VITALS: BP 150/68; PULSE 79; RESP 14; TEMP 98.6; O2SAT 97
[2024-06-21] MEDS ORDERED: methylPREDNISolone sod succ/PF 40mg inj. IV SCH (02:00)
[2024-06-21] MEDS ORDERED: CefTRIAXone 2gm/D5W 50ml BAG 50 ML IV SCH (08:00)
== END 2024-06-20 22:52 | disposition home or self-care (01) ==
LOC: ER 17:13
DX: J44.1 Chronic obstructive pulmonary disease with (acute) exacerbation (principal); I25.10 Atherosclerotic heart disease of native coronary artery without angina pectoris; E78.00 Pure hypercholesterolemia, unspecified; I10 Essential (primary) hypertension; I25.2 Old myocardial infarction; J45.909 Unspecified asthma, uncomplicated; K21.9 Gastro-esophageal reflux disease without esophagitis; E11.9 Type 2 diabetes mellitus without complications; M19.90 Unspecified osteoarthritis, unspecified site; G89.29 Other chronic pain; F32.A Depression, unspecified; Z91.018 Allergy to other foods; Z88.1 Allergy status to other antibiotic agents; Z88.8 Allergy status to other drugs, medicaments and biological substances; Z79.82 Long term (current) use of aspirin; Z79.51 Long term (current) use of inhaled steroids; Z79.4 Long term (current) use of insulin; Z98.51 Tubal ligation status; Z98.890 Other specified postprocedural states; Z60.2 Problems related to living alone; Z95.9 Presence of cardiac and vascular implant and graft, unspecified
CPT/HCPCS: 36415; 71046; 71275; 80048; 83605; 83880; 84145; 84484; 85025; 96365; 96375; 99285; J0696; J2919; Q9967

== ENCOUNTER 2024-07-09 23:21 | Emergency (ER) | payer MEDICAID ==
[~2024-07-09] VITALS: Ht 157.5 cm; Wt 92.0 kg
[~2024-07-09 23:21] MED LIST changes: -CefTRIAXone 2gm/D5W 50ml BAG 50 ML IV SCH; -methylPREDNISolone sod succ/PF 40mg inj. IV SCH
[2024-07-10 00:39] LABS: BASOPHILS % (AUTO) 0.1 % (0-1); EOSINOPHILS # (AUTO) 0.3 X10'3 (0-0.9); EOSINOPHILS % (AUTO) 2.7 % (0-6); HEMATOCRIT 41.2 % (35.0-45.0); HEMOGLOBIN 13.4 g/dl (12.0-16.0); LYMPHOCYTES # (AUTO) 2.1 X10'3 (1.1-4.8); LYMPHOCYTES % (AUTO) 20.6 % (21-51); MEAN CORPUSCULAR HEMOGLOBIN 26.4 PG (27.0-31.0); MEAN CORPUSCULAR HGB CONC 32.6 g/dL (33.0-36.5); MEAN CORPUSCULAR VOLUME 80.9 FL (78-98); MEAN PLATELET VOLUME 8.2 FL (7.4-10.4); MONOCYTES # (AUTO) 0.5 X10'3 (0-0.9); MONOCYTES % (AUTO) 4.6 % (2-12); NEUTROPHILS # (AUTO) 7.3 X10'3 (1.8-7.7); PLATELET COUNT 194 X10'3 (140-440); RED BLOOD COUNT 5.09 X10'6 (4.20-5.60); WHITE BLOOD COUNT 10.2 X10'3 (4.5-11.0)
[2024-07-10 01:05] LABS: ALBUMIN 3.3 G/DL (3.4-5.0); ANION GAP 8 (8-16); BLOOD UREA NITROGEN 10 MG/DL (7-18); BUN/CREATININE RATIO 10.8 (10.0-20.0); CALCIUM 9.2 MG/DL (8.5-10.1); CHLORIDE 105 MMOL/L (99-107); CREATININE 0.93 MG/DL (0.40-0.90); GLUCOSE 129 MG/DL (70-104); POTASSIUM 3.6 MMOL/L (3.5-5.1); PRO BRAIN NATRIURETIC PEPTIDE 122 PG/ML (0-125); SODIUM 138 MMOL/L (135-145); TOTAL CARBON DIOXIDE 25.3 MMOL/L (24-32); eCRCL 50 ML/MIN; eGFR 61 ML/MIN
[2024-07-10] MEDS: ipratropium/albuterol 3ml nebule NEB ONE (01:16)
[2024-07-10 01:19] VITALS: PULSE 79; RESP 16; O2SAT 97
[2024-07-10 01:24] VITALS: PULSE 90; O2SAT 99
[2024-07-10] MEDS ORDERED: PRED50TA PO (02:30)
[2024-07-10 02:31] VITALS: PULSE 96; RESP 18; O2SAT 96
[2024-07-10] MEDS: albuterol 2.5 MG/3 ML nebule NEB ONE (02:31)
[2024-07-10 02:37] VITALS: PULSE 98; O2SAT 99
[2024-07-10] MEDS: predniSONE 20 mg tablet PO ONE (02:42)
[2024-07-10] MEDS: DOXYCYCLINE 100MG CAPSULE PO STA (02:43)
[2024-07-10] MEDS: ROPINIRole 1mg tablet PO STA (02:43)
[2024-07-10] MEDS: oxyCODONE IR 5mg (immed. release) tablet PO ONE (02:43)
[2024-07-10 02:58] VITALS: BP 155/67; PULSE 98; RESP 18; O2SAT 97
[2024-07-10 03:32] VITALS: TEMP 98.3
== END 2024-07-10 03:28 | disposition home or self-care (01) ==
LOC: ER 23:23
DX: J44.1 Chronic obstructive pulmonary disease with (acute) exacerbation (principal); I25.10 Atherosclerotic heart disease of native coronary artery without angina pectoris; E78.00 Pure hypercholesterolemia, unspecified; I10 Essential (primary) hypertension; I25.2 Old myocardial infarction; J45.909 Unspecified asthma, uncomplicated; K21.9 Gastro-esophageal reflux disease without esophagitis; E11.9 Type 2 diabetes mellitus without complications; G89.29 Other chronic pain; F32.A Depression, unspecified; M19.90 Unspecified osteoarthritis, unspecified site; Z88.1 Allergy status to other antibiotic agents; Z88.8 Allergy status to other drugs, medicaments and biological substances; Z91.018 Allergy to other foods; Z79.899 Other long term (current) drug therapy; Z79.82 Long term (current) use of aspirin; Z79.51 Long term (current) use of inhaled steroids; Z98.890 Other specified postprocedural states; Z98.51 Tubal ligation status; Z60.2 Problems related to living alone
CPT/HCPCS: 36415; 71045; 80048; 83605; 83880; 85025; 87040; 94640; 99285; J7512; 94760

== ENCOUNTER 2024-07-17 22:04 | Emergency (ER) | payer MEDICAID ==
[~2024-07-17] VITALS: Ht 157.5 cm; Wt 90.0 kg
[~2024-07-17 22:04] MED LIST changes: +PRED50TA PO
[2024-07-17] MEDS ORDERED: dicloxacillin 500 MG capsule PO SCH (22:50)
[2024-07-17] MEDS ORDERED: amLODIPine 5mg tablet PO ONE (22:50)
[2024-07-18] MEDS: azithromycin 250mg tablet PO ONE (00:50)
[2024-07-18] MEDS: dexamethasone 4mg tablet PO ONE (00:50)
[2024-07-18 01:13] LABS: BILIRUBIN,URINE NEGATIVE (Neg); CLARITY,URINE CLEAR (Clear); COLOR,URINE YELLOW (Yellow); GLUCOSE, URINE NEGATIVE (Neg); KETONES,URINE NEGATIVE (Neg); LEUKOCYTE ESTERASE ,URINE SMALL (Neg); NITRITES, URINE NEGATIVE (Neg); OCCULT BLOOD,URINE NEGATIVE (Neg); PROTEIN,URINE NEGATIVE (Neg); UROBILINOGEN,URINE 0.2 E.U/dL (0.2-1.0)
[2024-07-18 01:14] LABS: UA COLLECTION TYPE CLN CATCH MIDSTREAM
[2024-07-18 01:18] LABS: BACTERIA,URINE FEW /HPF (Neg); MUCUS STRANDS NONE SEEN /LPF (Neg); RBC,URINE 0-2 /HPF (0-2); SQUAMOUS EPITHELIAL CELL,UR FEW /LPF (FEW)
[2024-07-18 02:01] VITALS: BP 140/78; PULSE 78; RESP 15; TEMP 98.5; O2SAT 100
[2024-07-18] MEDS ORDERED: AZIT500T PO (13:27)
== END 2024-07-18 02:05 | disposition home or self-care (01) ==
LOC: ER 22:04
DX: J02.0 Streptococcal pharyngitis (principal); N39.0 Urinary tract infection, site not specified; E78.00 Pure hypercholesterolemia, unspecified; E11.9 Type 2 diabetes mellitus without complications; I10 Essential (primary) hypertension; I25.2 Old myocardial infarction; K21.9 Gastro-esophageal reflux disease without esophagitis; M19.90 Unspecified osteoarthritis, unspecified site; J44.9 Chronic obstructive pulmonary disease, unspecified; J45.909 Unspecified asthma, uncomplicated; G89.29 Other chronic pain; F32.A Depression, unspecified; Z98.51 Tubal ligation status; Z60.2 Problems related to living alone; Z98.890 Other specified postprocedural states; Z88.8 Allergy status to other drugs, medicaments and biological substances; Z88.1 Allergy status to other antibiotic agents; Z88.2 Allergy status to sulfonamides; Z79.82 Long term (current) use of aspirin; Z79.4 Long term (current) use of insulin; Z79.52 Long term (current) use of systemic steroids; Z79.899 Other long term (current) drug therapy; W44.F3XA Food entering into or through a natural orifice, initial encounter; Y93.89 Activity, other specified; Y92.89 Other specified places as the place of occurrence of the external cause; Y99.8 Other external cause status
CPT/HCPCS: 81001; 87088; 99285

== ENCOUNTER 2024-10-10 17:32 | Emergency (ER) | payer MEDICAID ==
[~2024-10-10] VITALS: Ht 154.9 cm; Wt 87.7 kg
[~2024-10-10 17:32] MED LIST changes: -BUDE180A INH; +BUDE180A5 INH; +CARV3.1232 PO; -COR3.125T PO
[2024-10-10 19:17] LABS: BASOPHILS # (AUTO) 0.1 X10'3 (0-0.2); BASOPHILS % (AUTO) 0.8 % (0-1); EOSINOPHILS # (AUTO) 0.1 X10'3 (0-0.9); EOSINOPHILS % (AUTO) 1.1 % (0-6); HEMATOCRIT 41.8 % (35.0-45.0); HEMOGLOBIN 13.8 g/dl (12.0-16.0); LYMPHOCYTES # (AUTO) 1.9 X10'3 (1.1-4.8); LYMPHOCYTES % (AUTO) 18.3 % (21-51); MEAN CORPUSCULAR HEMOGLOBIN 26.2 PG (27.0-31.0); MEAN CORPUSCULAR HGB CONC 32.9 g/dL (33.0-36.5); MEAN CORPUSCULAR VOLUME 79.5 FL (78-98); MEAN PLATELET VOLUME 8.6 FL (7.4-10.4); MONOCYTES # (AUTO) 0.5 X10'3 (0-0.9); MONOCYTES % (AUTO) 4.8 % (2-12); NEUTROPHILS # (AUTO) 7.7 X10'3 (1.8-7.7); PLATELET COUNT 197 X10'3 (140-440); RED BLOOD COUNT 5.26 X10'6 (4.20-5.60); RED CELL DISTRIBUTION WIDTH 15.7 % (11.5-14.5); WHITE BLOOD COUNT 10.2 X10'3 (4.5-11.0)
[2024-10-10 19:19] LABS: BILIRUBIN,URINE SMALL (Neg); CLARITY,URINE SLIGHTLY CLOUDY (Clear); COLOR,URINE YELLOW (Yellow); GLUCOSE, URINE 250 mg/dl (Neg); KETONES,URINE TRACE mg/dl (Neg); LEUKOCYTE ESTERASE ,URINE NEGATIVE (Neg); NITRITES, URINE NEGATIVE (Neg); OCCULT BLOOD,URINE NEGATIVE (Neg); PH,URINE 5.5 (4.8-8.0); PROTEIN,URINE NEGATIVE (Neg); UROBILINOGEN,URINE 0.2 E.U/dL (0.2-1.0)
[2024-10-10 19:26] LABS: UA COLLECTION TYPE VOIDED
[2024-10-10 19:27] LABS: BACTERIA,URINE 1+ /HPF (Neg); MUCUS STRANDS MODERATE /LPF (Neg); RBC,URINE NONE SEEN /HPF (0-2); SQUAMOUS EPITHELIAL CELL,UR FEW /LPF (FEW); WBC,URINE 0-4 /HPF (0-4)
[2024-10-10 19:32] LABS: ALANINE AMINOTRANSFERASE 21 U/L (12-78); ALBUMIN 3.3 G/DL (3.4-5.0); ALKALINE PHOSPHATASE 94 IU/L (46-116); ANION GAP 12 (8-16); ASPARTATE AMINO TRANSFERASE 18 U/L (10-37); BILIRUBIN,TOTAL 0.3 MG/DL (0.1-1.0); BLOOD UREA NITROGEN 15 MG/DL (7-18); CALCIUM 9.2 MG/DL (8.5-10.1); CHLORIDE 106 MMOL/L (99-107); CREATININE 0.79 MG/DL (0.40-0.90); GLUCOSE 199 MG/DL (70-104); LIPASE 34 U/L (16-77); POTASSIUM 3.8 MMOL/L (3.5-5.1); SODIUM 142 MMOL/L (135-145); TOTAL CARBON DIOXIDE 23.9 MMOL/L (24-32); TOTAL PROTEIN 6.7 G/DL (6.4-8.2); eCRCL 56 ML/MIN; eGFR 74 ML/MIN
[2024-10-10] MEDS: normal saline 1000ml 1,000 ML IV ONE ×2 (19:44→22:02)
[2024-10-10] MEDS: HYDROmorphone 1 mg/ml syringe IV ONE (19:45)
[2024-10-10] MEDS: ondansetron/PF 4mg/2ml inj IV ONE ×2 (19:45→20:22)
[2024-10-10] MEDS ORDERED: DULA0.75 SQ (20:56)
[2024-10-10] MEDS ORDERED: NOVLG (20:56)
[2024-10-10] MEDS ORDERED: iohexol 350MG/ML 100ml bottle IV ONE (22:02)
[2024-10-10] MEDS: proCHLORperazine 10 MG/2 ml inj IV ONE (22:07)
[2024-10-10] MEDS: LORazepam 2 mg/ml vial IV ONE (22:07)
[2024-10-10] MEDS ORDERED: ONDA-243 PO (23:19)
[2024-10-10 23:22] VITALS: BP 146/59; PULSE 75; RESP 16; TEMP 98.6; O2SAT 94
== END 2024-10-10 23:25 | disposition home or self-care (01) ==
LOC: ER 17:33
DX: R10.84 Generalized abdominal pain (principal); R11.10 Vomiting, unspecified; I25.10 Atherosclerotic heart disease of native coronary artery without angina pectoris; E78.00 Pure hypercholesterolemia, unspecified; E11.9 Type 2 diabetes mellitus without complications; I25.2 Old myocardial infarction; I10 Essential (primary) hypertension; K21.9 Gastro-esophageal reflux disease without esophagitis; J45.909 Unspecified asthma, uncomplicated; J44.9 Chronic obstructive pulmonary disease, unspecified; F32.A Depression, unspecified; G89.29 Other chronic pain; M19.90 Unspecified osteoarthritis, unspecified site; Z60.2 Problems related to living alone; Z20.822 Contact with and (suspected) exposure to COVID-19; Z88.1 Allergy status to other antibiotic agents; Z88.2 Allergy status to sulfonamides; Z79.82 Long term (current) use of aspirin; Z79.4 Long term (current) use of insulin; Z79.52 Long term (current) use of systemic steroids; Z79.899 Other long term (current) drug therapy; Z98.51 Tubal ligation status; Z91.018 Allergy to other foods
CPT/HCPCS: 36415; 71275; 74174; 80053; 81001; 83605; 83690; 85025; 87502; 87503; 87811; 96361; 96374; 96375; 96376; 99285; J0780; J1171; J2060; J2405; J7030; Q9967

== ENCOUNTER 2025-03-28 10:09 | Emergency (ER) | payer MEDICAID ==
[~2025-03-28] VITALS: Ht 154.9 cm; Wt 73.4 kg
[~2025-03-28 10:09] MED LIST changes: -ATOR20TA66 PO; -CARV3.1232 PO; -DOCU-22 PO; +DULA0.75 SQ; -LORA10TA7 PO; -METO-292 PO; -NICO1PAT41 TOP; -NIRM1TAB PO; -NIRM1TAB5 PO; +NOVLG; -POLY510P31 PO; -PRED50TA PO
[2025-03-28 10:51] LABS: BASOPHILS # (AUTO) 0.1 X10'3 (0-0.2); EOSINOPHILS # (AUTO) 0.2 X10'3 (0-0.9); EOSINOPHILS % (AUTO) 2.1 % (0-6); HEMATOCRIT 41.5 % (35.0-45.0); HEMOGLOBIN 13.6 g/dl (12.0-16.0); LYMPHOCYTES # (AUTO) 1.9 X10'3 (1.1-4.8); LYMPHOCYTES % (AUTO) 25.4 % (21-51); MEAN CORPUSCULAR HEMOGLOBIN 26.3 PG (27.0-31.0); MEAN CORPUSCULAR HGB CONC 32.6 g/dL (33.0-36.5); MEAN CORPUSCULAR VOLUME 80.6 FL (78-98); MEAN PLATELET VOLUME 8.4 FL (7.4-10.4); MONOCYTES # (AUTO) 0.5 X10'3 (0-0.9); NEUTROPHILS % (AUTO) 65.5 % (42-75); PLATELET COUNT 203 X10'3 (140-440); RED BLOOD COUNT 5.15 X10'6 (4.20-5.60); RED CELL DISTRIBUTION WIDTH 14.7 % (11.5-14.5); WHITE BLOOD COUNT 7.6 X10'3 (4.5-11.0)
[2025-03-28 11:05] LABS: ALANINE AMINOTRANSFERASE 21 U/L (12-78); ALBUMIN 3.5 G/DL (3.4-5.0); ALKALINE PHOSPHATASE 104 IU/L (46-116); ANION GAP 13 (8-16); ASPARTATE AMINO TRANSFERASE 16 U/L (10-37); BILIRUBIN,TOTAL 0.4 MG/DL (0.1-1.0); BLOOD UREA NITROGEN 13 MG/DL (7-18); BUN/CREATININE RATIO 12.5 (10.0-20.0); CALCIUM 9.2 MG/DL (8.5-10.1); CHLORIDE 101 MMOL/L (99-107); CREATININE 1.04 MG/DL (0.40-0.90); GLUCOSE 243 MG/DL (70-104); LIPASE 32 U/L (16-77); POTASSIUM 4.2 MMOL/L (3.5-5.1); SODIUM 136 MMOL/L (135-145); TOTAL CARBON DIOXIDE 22.3 MMOL/L (24-32); eCRCL 42 ML/MIN; eGFR 54 ML/MIN
[2025-03-28 11:44] LABS: BILIRUBIN,URINE NEGATIVE (Neg); CLARITY,URINE SLIGHTLY CLOUDY (Clear); COLOR,URINE YELLOW (Yellow); GLUCOSE, URINE >=1000 mg/dl (Neg); KETONES,URINE NEGATIVE (Neg); LEUKOCYTE ESTERASE ,URINE NEGATIVE (Neg); NITRITES, URINE NEGATIVE (Neg); OCCULT BLOOD,URINE SMALL (Neg); PH,URINE 5.5 (4.8-8.0); PROTEIN,URINE NEGATIVE (Neg); UROBILINOGEN,URINE 0.2 E.U/dL (0.2-1.0)
[2025-03-28 11:45] LABS: UA COLLECTION TYPE CLN CATCH MIDSTREAM; URINE HCG NEGATIVE (NEG)
[2025-03-28 11:50] LABS: BACTERIA,URINE FEW /HPF (Neg); MUCUS STRANDS FEW /LPF (Neg); SQUAMOUS EPITHELIAL CELL,UR MODERATE /LPF (FEW); TRANSITIONAL EPI CELLS,URINE FEW /HPF; WBC,URINE 0-4 /HPF (0-4)
--- NOTE | 2025-03-28 13:06 | Physician Documentation ---
History of Present Illness ~ Chief Complaint: Bloody Stools Stated Complaint: RECTAL BLEEDING Time Seen by MD: 11:25 Primary Medical Doctor: [facility] Mode of Arrival: POV HPI THIS IS A PLEASANT 64-YEAR-OLD FEMALE WITH A KNOWN HISTORY OF DIABETES MELLITUS WHO PRESENTS FOR EVALUATION OF A SINGLE EPISODE OF BRIGHT RED BLOOD PER RECTUM, PAINLESS, EARLIER TODAY SHORTLY PRIOR TO ARRIVAL. No obvious trigger provocation. No trauma. The particular palliating or aggravating factors. This never happened in the past. Did not attempt to treat it. Denies any lightheadedness or chest pain. She does report for the last couple of days she has been experiencing left lower quadrant abdominal pain radiating to her back. Not ripping not tearing. Dull and achy. Did not attempt to treat it. Denies any concerns over alcohol, tobacco or illicit substances use. Medication Reconciliation Allergies: Coded Allergies: kiwi (Verified Allergy, Intermediate, HIVES, 07/17/24) lianet (Verified Allergy, Intermediate, HIVES, 07/17/24) papaya (Verified Allergy, Intermediate, HIVES, 07/17/24) diphenhydramine (Verified Allergy, Unknown, LEG CONVULSIONS, 07/17/24) trazodone (Verified Adverse Reaction, Severe, "Wires me up"- DOESNT SLEEP FOR WEEKS, 07/17/24) erythromycin base (Verified Adverse Reaction, Mild, N/V, 07/17/24) sulfamethoxazole (Verified Adverse Reaction, Unknown, CAUSES HALLUCINATIONS, 05/12/23) trimethoprim (Verified Adverse Reaction, Unknown, CAUSES HALLUCINATIONS, 05/12/23) Scheduled Amox Tr/Potassium Clavulanate 875/125 MG (Augmentin 875/125 MG), 1 TAB PO Q12H Aspirin (Children's Aspirin), 81 MG PO DAILY@0830 Budesonide (Pulmicort Flexhaler), 2 PUFFS INH Q12H Dapagliflozin Propanediol (Farxiga), 1 TAB PO DAILY, (Reported) Desvenlafaxine Succinate (Desvenlafaxine Succinate ER), 1 TAB PO DAILY, (Reported) Fluticasone Propionate (Fluticasone Propionate), 1 SPRAYS BOTHNARES BID, (Re ported) Insulin Glargine,Hum.rec.anlog (Basaglar Kwikpen U-100), 14 UNITS SQ BID, (Reported) Lipase/Protease/Amylase ([place] Dr 2,600 Unit Cap), 3 CAP PO TIDWM, (Reported) Pantoprazole Sodium (Pantoprazole Sodium), 40 MG PO BKF Prochlorperazine Maleate (Compazine), 1 TAB PO Q6H Ropinirole Hcl (Ropinirole Hcl), 3 MG PO HS, (Reported) Zolpidem Tartrate (Zolpidem Tartrate), 1 TAB PO HS, (Reported) Scheduled PRN Albuterol (Albuterol), 2 PUFF PO Q4H PRN for SOB or wheezing, (Reported) ONDANSETRON ODT 4mg tablet (Ondansetron Odt), 1 TAB PO Q6H PRN PRN for nausea/vomiting Oxycodone Hcl/Acetaminophen 5/325 MG* (Percocet 5/325 MG*), 1 TAB PO Q8H PRN for moderate pain, (Reported) Miscellaneous Medications Dulaglutide (Trulicity), SQ, (Reported) Insulin Aspart (Novolog), (Reported) Past Medical History Past Medical History: Coronary Artery Disease, High Cholesterol, Hypertension, Myocardial Infarction, Asthma, COPD, Constipation, GERD, Pancreatitis, Hernia, Diabetes, Arthritis, Chronic Pain, Depression Past Surgical History: orthopedic surgeries, tubal ligation, other Other Past Surgical History: cardiac catheterization Alcohol Use: None Drug Use: none Lives with: Spouse, Alone Lives In: Home Occupation: disabled Review of Systems ROS 10 point review of systems was performed and unless noted above in HPI is negative for acute process/complaint. Physical Exam Vital Signs: Temperature: 97.4, Source: Oral, Heart Rate: 69, Respiratory Rate: 18, BP: 113/57, Pulse Oximetry: 96, Weight: 73.400 Physical Exam GENERAL: Awake, alert, oriented, GCS 15, no apparent distress, non-toxic appearing, answers questions, follows commands appropriately. HEENT: Atraumatic, normocephalic, pupils equal, extraocular muscles intact, sclerae anicteric, mucus membranes moist, oropharynx is clear, no stridor. NECK: supple, full active range of motion, trachea midline, no thyromegaly, no lymphadenopathy, no JVD. CARDIOVASCULAR: regular rate/rhythm, no murmurs/gallops/rubs, Pulses are 2+ in all extremities and symmetric. Capillary refill less than 2 seconds. PULMONARY: Nonlabored, good air movement ,no respiratory distress, speaking in full sentences, clear to auscultation bilaterally, no wheezing, no ronchi, no rales, no accessory muscle use. GASTROINTESTINAL: Soft, left lower quadrant tenderness to palpation reproducing chief complaint, non-distended, normal active bowel sounds, no organomegaly, no pulsatile masses, no CVA tenderness. NEUROLOGIC: Lucid with normal mental status. Normal facial symmetry. Moves all extremities symmetrically and with purpose. No truncal ataxia. Speech is fluid without evidence of dysarthria or aphasia, no focal deficits appreciated. MUSCULOSKELETAL: There is full range of motion of all extremities. There is no joint pain or joint swelling or joint erythema. There is no muscle pain or tenderness or swelling. EXTREMITIES: warm, well-perfused, no cyanosis, no clubbing, no edema, no acute deformities. Skin: warm, dry, no rashes or lesions, no jaundice, no petechiae orpurpura. No ecchymosis. PSYCHIATRIC: Normal affect, normal insight, normal concentration. Focused exam: [] No guarding or rebound Progress Results/Orders Results/Orders Orders - MP SYED DO Ct Abdomen Pelvis (03/28/25 13:01) Completed Orders - MP SYED DO Hcg, Ur Ql (03/28/25 10:15) Cbc/Diff (03/28/25 10:15) BMP (03/28/25 10:15) Lipase (03/28/25 10:15) CMP (03/28/25 10:15) Ua W/Microscopic, Cult If Ind (03/28/25 11:26) Iohexol 300mg/Ml 100ml Inj. (Omnipaque-3 (03/28/25 13:27) Vital Signs 03/28/25 03/28/25 03/28/25 03/28/25 10:11 11:18 12:09 13:27 Temp 97.4 97.4 97.4 Pulse 80 69 68 Resp 15 18 18 18 B/P (MAP) 140/71 113/57 (75) 146/83 (104) Pulse Ox 98 96 98 Laboratory Tests Test 03/28/25 10:39 03/28/25 11:26 White Blood Count 7.6 Red Blood Count 5.15 Hemoglobin 13.6 Hematocrit 41.5 Mean Corpuscular Volume 80.6 Mean Corpuscular Hemoglobin 26.3 L Mean Corpuscular Hemoglobin Concent 32.6 L Red Cell Distribution Width 14.7 H Platelet Count 203 Mean Platelet Volume 8.4 Neutrophils (%) (Auto) 65.5 Lymphocytes (%) (Auto) 25.4 Monocytes (%) (Auto) 6.0 Eosinophils (%) (Auto) 2.1 Basophils (%) (Auto) 1.0 Neutrophils # (Auto) 5.0 Lymphocytes # (Auto) 1.9 Monocytes # (Auto) 0.5 Eosinophils # (Auto) 0.2 Basophils # (Auto) 0.1 CBC Comment Sodium Level 136 Potassium Level 4.2 Chloride Level 101 Carbon Dioxide Level 22.3 L Anion Gap 13 Blood Urea Nitrogen 13 Creatinine 1.04 H Estimated GFR/1.73 m2 54 BUN/Creatinine Ratio 12.5 Glucose Level 243 H Calcium Level 9.2 Total Bilirubin 0.4 Aspartate Amino Transf (AST/SGOT) 16 Alanine Aminotransferase (ALT/SGPT) 21 Alkaline Phosphatase 104 Total Protein 7.0 Albumin 3.5 Globulin 3.5 Albumin/Globulin Ratio 1.0 L Lipase 32 Chemistry Comments Urine Specimen Description Cln catch midstream Urine Color Yellow Urine Clarity Slightly cloudy Urine pH 5.5 Urine Specific [place] 1.015 Urine Protein Negative Urine Glucose (UA) >=1000 H Urine Ketones Negative Urine Occult Blood Small Urine Nitrite Negative Urine Bilirubin Negative Urine Urobilinogen 0.2 Urine Leukocyte Esterase Negative Urine RBC 3-10 Urine WBC 0-4 Urine Squamous Epithelial Cells Moderate Urine Transitional Epithelial Cells Few Urine Bacteria Few Urine Mucus Few Urine Culture Indicated Not ind Volume Urine Centrifuged 10 ml Urine HCG, Qualitative Negative Urine Comment Medical Decision Making Findings Facility Status: ED Holds, [facility] process The plan was discussed with the patient, who demonstrates clear understanding of the plan and is in agreement with the plan unless otherwise noted in the chart. All questions have been answered, all concerns were addressed unless otherwise documented. I was available throughout their ED stay for frequent reassessment and questions. Differential Diagnoses (considered and possible or likely): [External hemorrhoids versus internal hemorrhoids, anal fissure, diverticulitis, aortic enteric or aortic colonic fistula significantly less likely, neoplasm had also been considered. Less likely to represent a fairly brisk upper GI bleed.] ??Differential Diagnoses (considered and unlikely, not requiring evaluation currently): [No evidence of traumatic injury.] MDM Data Please see [facility] for the following: Independent Historians and external Records Review. Historian: [Patient] Independent Historians: ?[Record review] Medication Management: [Reviewed medication list] Social History and determinants: [Reviewed] Please see the body of the note for the following: Any independent interpretations of ECG, imaging studies. All vitals signs/haemodynamics, ordered tests were independently reviewed and interpreted by myself. Nursing triage complaint and vitals reviewed, additional nursing notes were reviewed as available and I agree unless otherwise noted or documented in contradiction in the chart Vital Signs: Independently reviewed Labs: Independently interpreted Imaging: Independently interpreted Old Medical Records: Independently reviewed, see [facility] for relevant summary and information Pulse Oximetry: [98%] interpreted as [normal on room air] by me [Rail Assembler: [Regular Rate, Regular rhythm, no ectopy, NSR] reviewed and interpreted by me] Additionally notably showing: [Hemodynamically stable. No evidence of tachycardic, hypotension, respiratory distress. Unremarkable laboratory workup. No evidence of anemia requiring transfusion.] Tests considered but not ordered include: [Colonoscopy should be done on an outpatient basis] Social Determinants of Health Impact: Patient was evaluated in [facility], or [facility] [place] with limited access to healthcare due to below par ratio of patient to medical providers. [] Comorbid Conditions Impacting Present Evaluation and Care/Treatment: [Diabetes] Management Discussions with other Healthcare Providers: [None] Treatment and Disposition Medication Management (Given or considered): []. See EMR for details Consideration for Hospitalization/Escalation/Deescalation of Care: Admission for observation has been considered, [however the patient is able to tolerate p.o., their symptoms are controlled, they are able to rely on oral medications, and their chief complaint/diagnosis can be managed on outpatient basis.] ?ED Course:?[Unfortunately the patient's IV blew and she desires to go home. Performed shared decision-making. We will empirically start her on antibiotics. She will need to follow-up with gastroenterology for colonoscopy. She already has a referral pending.] ?Shared decision making:?[Patient is hemodynamically stable for discharge home with follow with their primary care provider. [ ] Specific and cautious return precautions provided and discussed with full understanding. Any incidental findings were also discussed and follow up recommendations given. [] All questions answered. Patient/family were able to verbalize back return precautions. Patient/family agree to plan. Copies of imaging and laboratory studies were provided.] Code status:?FULL Please see the full Electronic Medical Record for full details of nursing documentation, medications list, other records of complete past medical history and conditions, vital signs, laboratory studies, and any radiologic study interpretations by radiologists. Portions of this note were completed using [employer] dictation software and as a result there may exist minor errors in spelling. I have reviewed elements of past family and social history and agree as included in note. Departure Disposition: HOME / SELF CARE / HOMELESS Impression: Primary Impression: Bright red blood per rectum Additional Impression Text Suspected diverticulitis Condition: Improved Discharge Instructions: Bloody Stools Referrals: NO PRIMARY CARE PROVIDER (PCP) Prescriptions Amox Tr/Potassium Clavulanate 875/125 MG (Augmentin 875/125 MG) 875 Mg-125 Mg Tablet 1 TAB PO Q12H for 10 Days, #20 TAB Prov: MP SYED DO 03/28/25 Education Educated: Patient Educated regarding: diagnosis, treatment, prognosis, need for follow up Signature Scribe Signature: No scribe Attestation: This note accurately reflects clinical decisions, work performed by myself, DO YAHAIRA Watkins NICHOLAS M DO Mar 28, 2025 13:05
[2025-03-28 13:27] VITALS: BP 146/83; PULSE 68; RESP 18; O2SAT 98
[2025-03-28] MEDS ORDERED: iohexol 300mg/ml 100ml inj. ONE (13:27)
[2025-03-28] MEDS ORDERED: AMOX-580 PO (14:10)
[2025-03-28 14:14] VITALS: TEMP 97.4
== END 2025-03-28 14:15 | disposition home or self-care (01) ==
LOC: ER 10:10
DX: K92.1 Melena (principal); E11.9 Type 2 diabetes mellitus without complications; E78.00 Pure hypercholesterolemia, unspecified; I10 Essential (primary) hypertension; I25.10 Atherosclerotic heart disease of native coronary artery without angina pectoris; I25.2 Old myocardial infarction; F32.A Depression, unspecified; K21.9 Gastro-esophageal reflux disease without esophagitis; J44.9 Chronic obstructive pulmonary disease, unspecified; M19.90 Unspecified osteoarthritis, unspecified site; Z88.1 Allergy status to other antibiotic agents; Z88.2 Allergy status to sulfonamides; Z88.8 Allergy status to other drugs, medicaments and biological substances; Z98.51 Tubal ligation status
CPT/HCPCS: 36415; 80053; 81001; 81025; 83690; 85025; 99283; Q9967

== ENCOUNTER 2025-06-22 13:48 | Outpatient (CLI) | payer MEDICAID ==
--- NOTE | 2025-06-22 16:35 | RADIOLOGY REPORT ---
CLINICAL HISTORY: IDIOPATHIC PULMONARY FIBROSIS TECHNIQUE: CT of the chest was performed without intravenous contrast. Inspiration and expiration prone images were obtained This exam was performed according to our departmental dose optimization program. Up-to-date CT equipment and radiation dose reduction techniques are utilized as appropriate. COMPARISON: CT CTA CHEST ABDOMEN PELVIS W/ IV CONTRAST on DOS: 10/10/24, CT CTA CHEST PE on DOS: 06/20/24, CT CT CHEST on DOS: 03/22/24 FINDINGS: Lower Neck: Unremarkable Axilla, Mediastinum and Alecia: No axillary lymphadenopathy. Scattered mildly prominent mediastinal lymph nodes although are predominantly normal-size. Limited evaluation of the alecia in the absence of intravenous contrast. Heart and Great Vessels: Normal-sized heart without pericardial effusion. There is calcified coronary artery disease [id number] in the left anterior descending coronary artery. The central pulmonary arteries are normal caliber. Airway, Lungs and Pleura: Trachea and central airways are patent. There is mild bilateral bronchial wall thickening. Scattered bilateral interstitial opacities there are scattered patchy ground-glass opacification of the lungs. This is similar on prone imaging. There is mild mosaic attenuation of the lungs. There is no honeycombing. No new airspace consolidation, pleural effusion, or pneumothorax. Upper Abdomen: No acute abnormality in the upper abdomen. Chest Wall and Osseous Structures: No destructive osseous lesion. There is mild multilevel thoracic spondylosis. IMPRESSION: 1. Scattered interstitial and ground-glass opacities in the lungs and mild bronchial wall thickening. No honeycombing is seen. Findings could be due to pulmonary fibrosis although is not in a UIP pattern. 2. Mild mosaic attenuation of the lungs likely due to small or small-vessel disease. 3. Aisi-[id number] calcified plaque in the left anterior descending coronary artery. Radiation optimization: All CT scans at this facility use at least one of these dose optimization techniques: automated exposure control mA and/or kV adjustment per patient size (includes targeted exams where dose is matched to clinical indication) or iterative reconstruction.
== END 2025-06-22 23:59 | disposition home or self-care (01) ==
LOC: RAD 13:48
PROVIDERS: ATTEND Internal Medicine Critical Care Medicine
DX: I25.10 Atherosclerotic heart disease of native coronary artery without angina pectoris (principal); J84.112 Idiopathic pulmonary fibrosis; J98.4 Other disorders of lung; M47.814 Spondylosis without myelopathy or radiculopathy, thoracic region
CPT/HCPCS: 71250

== ENCOUNTER 2025-06-23 22:42 | Emergency (ER) | payer MEDICAID ==
[~2025-06-23] VITALS: Ht 154.9 cm; Wt 79.0 kg
[2025-06-23] MEDS: ondansetron/PF 4mg/2ml inj IV ONE (23:07)
[2025-06-23] MEDS: morphine 4 MG/ML inj SYRINge IV ONE ×2 (23:07→23:44)
--- NOTE | 2025-06-23 23:26 | Physician Documentation ---
History of Present Illness ~ Chief Complaint: Shoulder pain Stated Complaint: FALL M ALS Time Seen by MD: 23:25 Primary Medical Doctor: [facility] Mode of Arrival: EMS HPI Patient presents to the emergency room for evaluation of left shoulder pain after a fall. She was cleaning above her kitchen stove when the chair she was standing on slipped on the linoleum floor causing her to fall. Positive head strike. Possible loss of consciousness. She is complaining of left shoulder pain and lower back pain. Tetanus within 5 years?: No Medication Reconciliation Allergies: Coded Allergies: kiwi (Verified Allergy, Intermediate, HIVES, 06/23/25) lianet (Verified Allergy, Intermediate, HIVES, 06/23/25) papaya (Verified Allergy, Intermediate, HIVES, 06/23/25) diphenhydramine (Verified Allergy, Unknown, LEG CONVULSIONS, 06/23/25) trazodone (Verified Adverse Reaction, Severe, "Wires me up"- DOESNT SLEEP FOR WEEKS, 06/23/25) erythromycin base (Verified Adverse Reaction, Mild, N/V, 06/23/25) sulfamethoxazole (Verified Adverse Reaction, Unknown, CAUSES HALLUCINATIONS, 05/12/23) trimethoprim (Verified Adverse Reaction, Unknown, CAUSES HALLUCINATIONS, 05/12/23) Scheduled Aspirin (Children's Aspirin), 81 MG PO DAILY@0830 Budesonide (Pulmicort Flexhaler), 2 PUFFS INH Q12H Dapagliflozin Propanediol (Farxiga), 1 TAB PO DAILY, (Reported) Desvenlafaxine Succinate (Desvenlafaxine Succinate ER), 1 TAB PO DAILY, (Reported) Fluticasone Propionate (Fluticasone Propionate), 1 SPRAYS BOTHNARES BID, (Reported) Insulin Glargine,Hum.rec.anlog (Basaglar Kwikpen U-100), 14 UNITS SQ BID, (Reported) Lipase/Protease/Amylase (E[place]ra [place]urn 2,600 Unit Cap), 3 CAP PO TIDWM, (Reported) Ondansetron 8mg ODT (Ondansetron Odt), 1 TAB PO Q6H Pantoprazole Sodium (Pantoprazole Sodium), 40 MG PO BKF Prochlorperazine Maleate (Compazine), 1 TAB PO Q6H Ropinirole Hcl (Ropinirole Hcl), 3 MG PO HS, (Reported) Zolpidem Tartrate (Zolpidem Tartrate), 1 TAB PO HS, (Reported) Scheduled PRN Albuterol (Albuterol), 2 PUFF PO Q4H PRN for SOB or wheezing, (Reported) Hydrocodone Bit/Acetaminophen 5/325 MG ([place] 5/325 MG), 1-2 TAB PO Q4-6 hours PRN for pain ONDANSETRON ODT 4mg tablet (Ondansetron Odt), 1 TAB PO Q6H PRN PRN for nausea/vomiting Oxycodone Hcl/Acetaminophen 5/325 MG* (Percocet 5/325 MG*), 1 TAB PO Q8H PRN for moderate pain, (Reported) Miscellaneous Medications Dulaglutide (Trulicity), SQ, (Reported) Insulin Aspart (Novolog), (Reported) Past Medical History Past Medical History: Coronary Artery Disease, High Cholesterol, Hypertension, Myocardial Infarction, Asthma, COPD, Constipation, GERD, Pancreatitis, Hernia, Diabetes, Arthritis, Chronic Pain, Depression Past Surgical History: orthopedic surgeries, tubal ligation, other Other Past Surgical History: cardiac catheterization Alcohol Use: None Drug Use: none Lives with: Spouse, Alone Lives In: Home Occupation: disabled Review of Systems ROS All review of systems negative except as per HPI Physical Exam Vital Signs: Heart Rate: 64, Respiratory Rate: 16, BP: 143/72, Pulse Oximetry: 98, Weight: 79.000 Physical Exam General: Patient is awake, alert, oriented x4 in mild distress Head: Normocephalic and atraumatic. Eyes: Conjunctival normal. EOMI. PERRL. ENT: Mucous membranes moist. Neck: Supple, trachea is midline. In C-collar Chest: Clear to auscultation bilaterally without rales, rhonchi, or wheezes. There is no accessory muscle use or retractions. Cardiac: RRR without murmurs, gallops, or rubs. Abd: Soft, nondistended, nontender, with normoactive bowel sounds. No guarding, rebound, or rigidity. Extremities: Pain with manipulation of left shoulder. Neurovascularly intact Back: Diffuse lumbar spine tenderness to palpation Progress Results/Orders Results/Orders Orders - ADDY MOON MD Shoulder, Complete (Min 2 Vws) (06/23/25 23:03) Ct Cervical Spine (06/23/25 23:29) Ct Head (06/23/25 23:29) Ct Lumbar Spine (06/24/25 23:33) Completed Orders - ADDY MOON MD Morphine 4mg/Ml Inj. (Morphine Inj.) (06/23/25 23:05) Ondansetron Inj. (Zofran 4mg/2ml Vial) (06/23/25 23:05) Shoulder, Complete (Min 2 Vws) (06/23/25 23:03) Ct Cervical Spine (06/23/25 23:29) Ct Head (06/23/25 23:29) Morphine 4mg/Ml Inj. (Morphine Inj.) (06/23/25 23:30) Acetaminophen 1,000mg/100ml Iv (Ofirmev (06/23/25 23:30) Orphenadrine Citrate Inj. (Norflex Inj.) (06/23/25 23:35) Cbc/Diff (06/23/25 23:34) Electrocardiogram (06/23/25 23:34) PBNP (06/23/25 23:34) BMP (06/23/25 23:34) Hs Troponin I W Calculations (06/23/25 23:34) Ct Lumbar Spine (06/24/25 23:33) Ketorolac Trometh 15mg/Ml Vial (Toradol (06/24/25 00:45) * Arm Sling To Be Placed Overn (06/24/25 00:41) Medications Received in ER Medications (Trade) Dose Ordered Sig/Lizet Route PRN Reason Start Time Stop Time Status Last Admin Dose Admin (morphine inj.) 4 mg ONCE ONCE IV 06/23/25 23:05 06/23/25 23:06 DC 06/23/25 23:07 4 MG (Zofran 4mg/2ml vial) 4 mg ONCE ONCE IV 06/23/25 23:05 06/23/25 23:06 DC 06/23/25 23:07 4 MG (morphine inj.) 4 mg ONCE ONCE IV 06/23/25 23:30 06/23/25 23:38 DC 06/23/25 23:44 4 MG Acetaminophen 100 ml @ 400 mls/hr ONCE ONCE IV 06/23/25 23:30 06/23/25 23:44 DC 06/24/25 01:12 400 MLS/HR (Norflex inj.) 60 mg ONCE ONCE IV 06/23/25 23:35 06/23/25 23:36 DC 06/23/25 23:43 60 MG (Toradol injection) 15 mg ONCE ONCE IV 06/24/25 00:45 06/24/25 01:02 DC 06/24/25 01:20 15 MG Vital Signs 06/23/25 06/23/25 06/23/25 06/24/25 22:43 22:49 23:48 01:20 Pulse 64 84 Resp 16 16 16 16 B/P (MAP) 143/72 132/66 (88) Pulse Ox 98 99 06/24/25 01:52 Pulse 68 Resp 16 B/P (MAP) 126/84 Pulse Ox 98 Laboratory Tests Test 06/23/25 23:59 06/24/25 00:28 Sodium Level 139 Potassium Level 4.0 Chloride Level 105 Carbon Dioxide Level 23.8 L Anion Gap 10 Blood Urea Nitrogen 16 Creatinine 0.91 H Estimated GFR/1.73 m2 63 BUN/Creatinine Ratio 17.6 Glucose Level 151 H Calcium Level 9.6 Troponin I High Sensitivity 7 Pro-B-Type Natriuretic Peptide 86 Albumin 3.6 Chemistry Comments White Blood Count 14.6 H Red Blood Count 5.09 Hemoglobin 13.4 Hematocrit 40.8 Mean Corpuscular Volume 80.2 Mean Corpuscular Hemoglobin 26.3 L Mean Corpuscular Hemoglobin Concent 32.8 L Red Cell Distribution Width 14.9 H Platelet Count 216 Mean Platelet Volume 8.5 Neutrophils (%) (Auto) 88.4 H Lymphocytes (%) (Auto) 7.3 L Monocytes (%) (Auto) 3.6 Eosinophils (%) (Auto) 0.4 Basophils (%) (Auto) 0.3 Neutrophils # (Auto) 12.9 H Lymphocytes # (Auto) 1.1 Monocytes # (Auto) 0.5 Eosinophils # (Auto) 0.1 Basophils # (Auto) 0.0 CBC Comment Medical Decision Making Findings Patient presented to the emergency room status post fall as per HPI. Differentials include but are not limited to fractures, dislocation, soft tissue injury, intracranial bleed therefore emergent labs and imaging indicated. Labs reassuring. CT scans reassuring. Shoulder x-ray shows a well-aligned fracture. Patient placed in sling in his neurovascularly intact status post sling placement. Departure Disposition: 01 HOME / SELF CARE / HOMELESS Impression: Primary Impression: Fracture of humerus Condition: Stable Discharge Instructions: Humerus Fracture Treated With Immobilization, [id number] Additional Instructions: Call doctor in the morning to arrange for follow up. Referrals: NO PRIMARY CARE PROVIDER (PCP) IMANI ALBERTO MD Prescriptions Ondansetron 8mg ODT (Ondansetron Odt) 8 Mg Tab.rapdis 1 TAB PO Q6H for nausea/vomiting for 3 Days, #12 TAB 0 Refills Prov: ADDY MOON MD 06/24/25 Hydrocodone Bit/Acetaminophen 5/325 MG ([place] 5/325 MG) 5 Mg/325 Mg Tablet 1-2 TAB PO Q4-6 hours PRN for pain, #20 TAB Prov: ADDY MOON MD 06/24/25 Signature Scribe Signature: No scribe Attestation: The note accurately reflects work and decisions made by me.Addy Moon MD 06/24/25 02:39 ADDY MOON MD Jun 23, 2025 23:26
[2025-06-23] MEDS: orphenadrine citrate 60mg/2ml inj. IV ONE (23:43)
--- NOTE | 2025-06-23 23:50 | ELECTROCARDIOGRAPH REPORT ---
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 Chico Barber Measurements Intervals [place] Rate: 93 P: 66 ND: 151 QRS: -9 QRSD: 93 T: 69 QT: 375 QTc: 467 Interpretive Statements Sinus rhythm Abnormal R-wave progression, early transition Electronically Signed On 06-30-2025 21:50:[address] Chico Barber Please click the below link to view image of tracing.
--- NOTE | 2025-06-24 00:30 | RADIOLOGY REPORT ---
EXAM: CT CT HEAD INDICATION: Fall TECHNIQUE: CT of the head without intravenous contrast. Radiation Dose : 1. Head: CT Dose: CTDI volume is 69.35 mGy. Dose-length product is 1238.38 mGy*cm The dose indicators for CT are the volume Computed Tomography (CT) Dose Index (CTDIvol) and the Dose Length Product (DLP), and are measured in units of mGy and mGy-cm, respectively. These indicators are not patient dose, but values generated from the CT scanner acquisition factors. The report includes radiation exposure data for exposures received during this examination. COMPARISON: None FINDINGS: There is no evidence of acute intracranial hemorrhage, extra-axial collection, mass effect, midline shift, herniation or hydrocephalus. The ventricles, sulci and cisterns are age appropriate. The de los santos-white differentiation is intact. The visualized paranasal sinuses and mastoid air cells are clear. The surrounding soft tissues and osseous structures are unremarkable. IMPRESSION: 1. No evidence of acute intracranial process. Radiation optimization: All CT scans at this facility use at least one of these dose optimization techniques: automated exposure control mA and/or kV adjustment per patient size (includes targeted exams where dose is matched to clinical indication) or iterative reconstruction.
[2025-06-24 00:32] LABS: CREATININE 0.91 MG/DL (0.40-0.90); PRO BRAIN NATRIURETIC PEPTIDE 86 PG/ML (0-125); TOTAL CARBON DIOXIDE 23.8 MMOL/L (24-32); eCRCL 48 ML/MIN; eGFR 63 ML/MIN
--- NOTE | 2025-06-24 00:33 | RADIOLOGY REPORT ---
EXAM: CT CT CERVICAL SPINE HISTORY: Fall with pain COMPARISON: CT CT HEAD on DOS: 06/23/25, VASC VL CAROTID on DOS: 05/12/23 CTDIvol 25.35 mGy, DLP divided by 3.62 mGy*cm. TECHNIQUE: Multiple axial CT images of the spine were obtained using bone algorithm. Axial and coronal reformatting was done. Bone and soft tissue windows were reviewed. FINDINGS: No evidence of definite acute fracture, spinal dislocation, or significant appearing acute subluxation is seen. Mild degenerative disc disease throughout the mid and lower cervical spine. IMPRESSION: No definite CT evidence of acute fracture or dislocation of the bony cervical spine.
[2025-06-24 00:34] LABS: MEAN PLATELET VOLUME 8.5 FL (7.4-10.4); RED CELL DISTRIBUTION WIDTH 14.9 % (11.5-14.5)
--- NOTE | 2025-06-24 00:35 | RADIOLOGY REPORT ---
EXAM: CT CT LUMBAR SPINE HISTORY: back pain COMPARISON: CT CT CERVICAL SPINE on DOS: 06/23/25, CT CT ABDOMEN PELVIS on DOS: 05/16/23, CT ABDOMEN PELVIS on DOS: 02/27/23, CT ABDOMEN PELVIS on DOS: 09/26/22, CT ABDOMEN PELVIS on DOS: 07/26/22 CTDIvol 34.79 mGy, DLP 1130.08 mGy*cm. TECHNIQUE: Multiple axial CT images of the spine were obtained using bone algorithm. Axial and coronal reformatting was done. Bone and soft tissue windows were reviewed. FINDINGS: No evidence of definite acute fracture, spinal dislocation, or significant appearing acute subluxation is seen. Mild chronic appearing superior endplate compression fracture versus intraosseous disc herniation/schmorls node at the superior endplate of T11. Minimal height loss. No retropulsion. Central canal appears widely patent within the limits of a CT. No large focal disc herniation or significant spinal stenosis. IMPRESSION: No definite CT evidence of acute fracture or dislocation of the bony lumbar spine.
--- NOTE | 2025-06-24 00:56 | RADIOLOGY REPORT ---
CLINICAL INDICATION: left shoulder deformity with pain TECHNIQUE: SHOULDERCMDI SHOULDER, COMPLETE (MIN 2 VWS), left Comparison: None FINDINGS/IMPRESSION: : Comminuted non displaced fracture of the humeral head and neck in near anatomic position and alignment. Glenohumeral joint is congruent.
[2025-06-24] MEDS: acetaminophen 1,000mg/100ml IV 100 ML IV ONE (01:12)
[2025-06-24] MEDS: ketorolac trometh 15mg/ml vial 15 MG/ML ML IV ONE (01:20)
[2025-06-24] MEDS ORDERED: HYDR-3965 PO (01:45)
[2025-06-24] MEDS ORDERED: ONDA-245 PO (01:45)
[2025-06-24 01:52] VITALS: BP 126/84; PULSE 68; RESP 16; O2SAT 98
== END 2025-06-24 01:53 | disposition home or self-care (01) ==
LOC: ER 22:43
DX: S42.295A Other nondisplaced fracture of upper end of left humerus, initial encounter for closed fracture (principal); R51.9 Headache, unspecified; R06.02 Shortness of breath; E11.9 Type 2 diabetes mellitus without complications; E78.00 Pure hypercholesterolemia, unspecified; I10 Essential (primary) hypertension; I25.10 Atherosclerotic heart disease of native coronary artery without angina pectoris; I25.2 Old myocardial infarction; M19.90 Unspecified osteoarthritis, unspecified site; K21.9 Gastro-esophageal reflux disease without esophagitis; J44.9 Chronic obstructive pulmonary disease, unspecified; Z88.1 Allergy status to other antibiotic agents; Z88.2 Allergy status to sulfonamides; Z88.8 Allergy status to other drugs, medicaments and biological substances; Z98.51 Tubal ligation status; Z79.82 Long term (current) use of aspirin; W01.0XXA Fall on same level from slipping, tripping and stumbling without subsequent striking against object, initial encounter; Y93.89 Activity, other specified; Y92.000 Kitchen of unspecified non-institutional (private) residence as the place of occurrence of the external cause; Y99.8 Other external cause status
CPT/HCPCS: 36415; 70450; 72125; 72131; 73030; 80048; 83880; 84484; 85025; 93005; 96374; 96375; 96376; 99285; J0131; J1885; J2270; J2360; J2405; A4565

== ENCOUNTER 2025-06-25 12:16 | Emergency (ER) | payer MEDICAID ==
[~2025-06-25] VITALS: Ht 154.9 cm; Wt 215.4 kg
[~2025-06-25 12:16] MED LIST changes: +HYDR-3965 PO; +ONDA-245 PO
[2025-06-25 12:38] VITALS: TEMP 98.6
[2025-06-25 13:25] LABS: MEAN PLATELET VOLUME 8.8 FL (7.4-10.4); RED CELL DISTRIBUTION WIDTH 15.2 % (11.5-14.5)
--- NOTE | 2025-06-25 13:33 | ELECTROCARDIOGRAPH REPORT ---
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
[2025-06-25 13:38] LABS: CREATININE 1.09 MG/DL (0.40-0.90); TOTAL CARBON DIOXIDE 27.4 MMOL/L (24-32); eCRCL 40 ML/MIN; eGFR 51 ML/MIN
--- NOTE | 2025-06-25 14:29 | Physician Documentation ---
History of Present Illness ~ Chief Complaint: Seizure Stated Complaint: SEIZURES Time Seen by MD: 12:55 Primary Medical Doctor: [facility] Mode of Arrival: EMS HPI Patient was brought in from home for a seizure-like activity per daughter the patient was sitting in the couch and began shaking her eyes rolling back in the head. Denies any fall or head strikes. Patient was not postictal after the reported event. EMS indicated patient was A&O four GCS of 15 and patient has no seizure history. However patient did have a recent fracture in her left arm and has been taking Percocet regularly for the pain.. The patient currently complains of only pain in denies any focal deficits or any other associated complaint Medication Reconciliation Allergies: Coded Allergies: kiwi (Verified Allergy, Intermediate, HIVES, 06/23/25) lianet (Verified Allergy, Intermediate, HIVES, 06/23/25) papaya (Verified Allergy, Intermediate, HIVES, 06/23/25) diphenhydramine (Verified Allergy, Unknown, LEG CONVULSIONS, 06/23/25) trazodone (Verified Adverse Reaction, Severe, "Wires me up"- DOESNT SLEEP FOR WEEKS, 06/23/25) erythromycin base (Verified Adverse Reaction, Mild, N/V, 06/23/25) sulfamethoxazole (Verified Adverse Reaction, Unknown, CAUSES HALLUCINATIONS, 05/12/23) trimethoprim (Verified Adverse Reaction, Unknown, CAUSES HALLUCINATIONS, 05/12/23) Scheduled Aspirin (Children's Aspirin), 81 MG PO DAILY@0830 Budesonide (Pulmicort Flexhaler), 2 PUFFS INH Q12H Dapagliflozin Propanediol (Farxiga), 1 TAB PO DAILY, (Reported) Desvenlafaxine Succinate (Desvenlafaxine Succinate ER), 1 TAB PO DAILY, (Reported) Fluticasone Propionate (Fluticasone Propionate), 1 SPRAYS BOTHNARES BID, (Reported) Insulin Glargine,Hum.rec.anlog (Basaglar Kwikpen U-100), 14 UNITS SQ BID, (Repo rted) Lipase/Protease/Amylase (Ezra Coburn 2,600 Unit Cap), 3 CAP PO TIDWM, (Reported) Ondansetron 8mg ODT (Ondansetron Odt), 1 TAB PO Q6H Pantoprazole Sodium (Pantoprazole Sodium), 40 MG PO BKF Prochlorperazine Maleate (Compazine), 1 TAB PO Q6H Ropinirole Hcl (Ropinirole Hcl), 3 MG PO HS, (Reported) Zolpidem Tartrate (Zolpidem Tartrate), 1 TAB PO HS, (Reported) Scheduled PRN Albuterol (Albuterol), 2 PUFF PO Q4H PRN for SOB or wheezing, (Reported) Hydrocodone Bit/Acetaminophen 5/325 MG ([place] 5/325 MG), 1-2 TAB PO Q4-6 hours PRN for pain ONDANSETRON ODT 4mg tablet (Ondansetron Odt), 1 TAB PO Q6H PRN PRN for nausea/vomiting Oxycodone Hcl/Acetaminophen 5/325 MG* (Percocet 5/325 MG*), 1 TAB PO Q8H PRN for moderate pain, (Reported) Miscellaneous Medications Dulaglutide (Trulicity), SQ, (Reported) Insulin Aspart (Novolog), (Reported) Past Medical History Past Medical History: Coronary Artery Disease, High Cholesterol, Hypertension, Myocardial Infarction, Asthma, COPD, Constipation, GERD, Pancreatitis, Hernia, Diabetes, Arthritis, Chronic Pain, Depression Past Surgical History: orthopedic surgeries, tubal ligation, other Other Past Surgical History: cardiac catheterization Alcohol Use: None Drug Use: none Lives with: Spouse, Alone Lives In: Home Occupation: disabled Review of Systems All Other Systems at this time: Reviewed and Negative ROS As stated above in the HPI, otherwise all systems are reviewed and negative. Physical Exam Vital Signs: Temperature: 98.6, Source: Oral, Heart Rate: 80, Respiratory Rate: 22, BP: 134/50, Pulse Oximetry: 99, Weight: 215.450 Oxygen Flow Rate: 0 Physical Exam General: Alert, no apparent distress. Extremities: Normal range of motion, no deformity. echymosisi Neurologic: Oriented x4. Psychiatric: Normal mood and affect. Skin: Normal color, warm and dry. No edema, no ecchymosis. Progress Results/Orders Results/Orders Orders - RAFA GÓMEZ REGION[employer] PROPERTY MANAGER 15 Lead Ekg (06/25/25 ) Completed Orders - RAFA GÓMEZ [employer]ION[employer] PROPERTY MANAGER Electrocardiogram (06/25/25 ) Morphine 4mg/Ml Inj. (Morphine Inj.) (06/25/25 14:20) Medications Received in ER Medications (Trade) Dose Ordered Sig/Lizet Route PRN Reason Start Time Stop Time Status Last Admin Dose Admin (morphine inj.) 4 mg ONCE ONCE IM 06/25/25 14:20 06/25/25 14:21 DC 06/25/25 14:37 4 MG Vital Signs 06/25/25 06/25/25 06/25/25 06/25/25 12:38 12:43 13:37 14:37 Temp 98.6 Pulse 82 80 Resp 14 18 22 12 B/P (MAP) 131/70 134/50 (78) Pulse Ox 95 99 O2 Flow Rate 0 Laboratory Tests Test 06/25/25 13:10 White Blood Count 11.2 H Red Blood Count 4.87 Hemoglobin 13.1 Hematocrit 39.4 Mean Corpuscular Volume 80.8 Mean Corpuscular Hemoglobin 27.0 Mean Corpuscular Hemoglobin Concent 33.4 Red Cell Distribution Width 15.2 H Platelet Count 179 Mean Platelet Volume 8.8 Neutrophils (%) (Auto) 79.6 H Lymphocytes (%) (Auto) 13.9 L Monocytes (%) (Auto) 4.6 Eosinophils (%) (Auto) 1.1 Basophils (%) (Auto) 0.8 Neutrophils # (Auto) 8.9 H Lymphocytes # (Auto) 1.6 Monocytes # (Auto) 0.5 Eosinophils # (Auto) 0.1 Basophils # (Auto) 0.1 CBC Comment Sodium Level 138 Potassium Level 3.9 Chloride Level 103 Carbon Dioxide Level 27.4 Anion Gap 8 Blood Urea Nitrogen 20 H Creatinine 1.09 H Estimated GFR/1.73 m2 51 BUN/Creatinine Ratio 18.3 Glucose Level 245 H Calcium Level 9.4 Total Bilirubin 0.3 Aspartate Amino Transf (AST/SGOT) 18 Alanine Aminotransferase (ALT/SGPT) 26 Alkaline Phosphatase 92 Total Protein 6.9 Albumin 3.5 Globulin 3.4 Albumin/Globulin Ratio 1.0 L Lipase 38 Chemistry Comments Medical Decision Making Findings This patient presented A&O x4 inappropriate to the situation from the time of arrival and so with the times that I have reassessed her. He would not suspect seizure at this time. He is not show any signs of being postictal. Her primary complaint is pain secondary to her previous fracture. Treated her for pain she has already been provided with outpatient pain management. Advised her she needs to follow up in the outpatient for further evaluation. Differential Dx:Considerations: Include: Hyperventilation, Psychogenic seizure, Due to alcohol withdrawl, Anticonvulsant withdrawl, Due to closed head injury, Due to CVA/TIA, Due to drug ingestion, Due to eclampsia, Due to hypocalcemia, Due to hypoglycemia, Due to hyponatremia, Due to hypoxemia, Idiopathic, Due to mass lesion, Due to meningitis, Syncope, Encephalopathy, Epilepsy-break through, Epilepsy-status, Other Departure Disposition: 01 HOME / SELF CARE / HOMELESS Impression: Primary Impression: Fracture of humerus Condition: Stable Discharge Instructions: Humerus Fracture Treated With Immobilization Additional Instructions: Sure to follow up with a an orthopedic surgeon and your pain management clinic Referrals: NO PRIMARY CARE PROVIDER (PCP) Education Educated: Patient Educated regarding: diagnosis Signature Scribe Signature: hever Attestation: Scribed for Rafa Gómez Digital Hardware Design Engineer by Rafa Gage NP . 06/25/25 14:34 RAFA GÓMEZ NP Jun 25, 2025 14:29
[2025-06-25] MEDS: morphine 4 MG/ML inj SYRINge IM ONE (14:37)
[2025-06-25 14:54] VITALS: BP 132/86; PULSE 84; RESP 16; O2SAT 99
--- NOTE | 2025-06-26 08:45 | ELECTROCARDIOGRAPH REPORT ---
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
== END 2025-06-25 15:06 | disposition home or self-care (01) ==
LOC: ER 12:17
DX: S42.302A Unspecified fracture of shaft of humerus, left arm, initial encounter for closed fracture (principal); E11.9 Type 2 diabetes mellitus without complications; E78.00 Pure hypercholesterolemia, unspecified; I10 Essential (primary) hypertension; K21.9 Gastro-esophageal reflux disease without esophagitis; I25.10 Atherosclerotic heart disease of native coronary artery without angina pectoris; I25.2 Old myocardial infarction; J44.9 Chronic obstructive pulmonary disease, unspecified; M19.90 Unspecified osteoarthritis, unspecified site; F32.A Depression, unspecified; Z88.1 Allergy status to other antibiotic agents; Z88.2 Allergy status to sulfonamides; Z79.82 Long term (current) use of aspirin; Z88.8 Allergy status to other drugs, medicaments and biological substances; Z98.51 Tubal ligation status; X58.XXXA Exposure to other specified factors, initial encounter; Y93.89 Activity, other specified; Y92.89 Other specified places as the place of occurrence of the external cause; Y99.8 Other external cause status
CPT/HCPCS: 36415; 80053; 83690; 85025; 93005; 96372; 99284; J2270

== ENCOUNTER 2025-07-09 10:10 | Emergency (ER) | payer MEDICAID ==
[~2025-07-09] VITALS: Ht 154.9 cm; Wt 79.1 kg
[~2025-07-09 10:10] MED LIST changes: +ZOLP5TAB18 PO; -ZOLP5TAB8 PO
--- NOTE | 2025-07-09 11:43 | Physician Documentation ---
HPI ~ General Chief Complaint: Medication Request Stated Complaint: FALL 06/23, SHOULDER PAIN Time Seen by MD: 11:36 OK to notify your PCP?: Yes Primary Medical Doctor: [facility] History of Present Illness HPI Comments 64-year-old female presents with left shoulder pain from a fracture. She currently has a sling on. She reports that she has been taking Percocet at home but it is not helpful. She has also been taking Advil and using a heating pad to that shoulder. She is awaiting surgery with a doctor at [facility]. She is awaiting surgical clearance from her primary care provider as well as her chair caner. She reports that she has not had access to her Percocet today as it is locked in her car. She said she plans on getting a lining stuffer to unlock her car today as she has plenty of Percocet once she can obtain them. Reports she does not need a refill. Medication Reconciliation Allergies: Coded Allergies: kiwi (Verified Allergy, Intermediate, HIVES, 06/23/25) lianet (Verified Allergy, Intermediate, HIVES, 06/23/25) papaya (Verified Allergy, Intermediate, HIVES, 06/23/25) diphenhydramine (Verified Allergy, Unknown, LEG CONVULSIONS, 06/23/25) trazodone (Verified Adverse Reaction, Severe, "Wires me up"- DOESNT SLEEP FOR WEEKS, 06/23/25) erythromycin base (Verified Adverse Reaction, Mild, N/V, 06/23/25) sulfamethoxazole (Verified Adverse Reaction, Unknown, CAUSES HALLUCINATION S, 05/12/23) trimethoprim (Verified Adverse Reaction, Unknown, CAUSES HALLUCINATIONS, 05/12/23) Scheduled Aspirin (Children's Aspirin), 81 MG PO DAILY@0830 Budesonide (Pulmicort Flexhaler), 2 PUFFS INH Q12H Dapagliflozin Propanediol (Farxiga), 1 TAB PO DAILY, (Reported) Desvenlafaxine Succinate (Desvenlafaxine Succinate ER), 1 TAB PO DAILY, (Reported) Fluticasone Propionate (Fluticasone Propionate), 1 SPRAYS BOTHNARES BID, (Reported) Insulin Glargine,Hum.rec.anlog (Basaglar Kwikpen U-100), 14 UNITS SQ BID, (Reported) Lipase/Protease/Amylase (Pancreaze Dr 2,600 Unit Cap), 3 CAP PO TIDWM, (Reported) Ondansetron 8mg ODT (Ondansetron Odt), 1 TAB PO Q6H Pantoprazole Sodium (Pantoprazole Sodium), 40 MG PO BKF Prochlorperazine Maleate (Compazine), 1 TAB PO Q6H Ropinirole Hcl (Ropinirole Hcl), 3 MG PO HS, (Reported) Zolpidem Tartrate (Zolpidem Tartrate), 1 TAB PO HS, (Reported) Scheduled PRN Albuterol (Albuterol), 2 PUFF PO Q4H PRN for SOB or wheezing, (Reported) Hydrocodone Bit/Acetaminophen 5/325 MG ([place] 5/325 MG), 1-2 TAB PO Q4-6 hours PRN for pain ONDANSETRON ODT 4mg tablet (Ondansetron Odt), 1 TAB PO Q6H PRN PRN for nausea/vomiting Oxycodone Hcl/Acetaminophen 5/325 MG* (Percocet 5/325 MG*), 1 TAB PO Q8H PRN for moderate pain, (Reported) Miscellaneous Medications Dulaglutide (Trulicity), SQ, (Reported) Insulin Aspart (Novolog), (Reported) Past Medical History Past Medical History: Coronary Artery Disease, High Cholesterol, Hypertension, Myocardial Infarction, Asthma, COPD, Constipation, GERD, Pancreatitis, Hernia, Diabetes, Arthritis, Chronic Pain, Depression Past Surgical History: orthopedic surgeries, tubal ligation, other Other Past Surgical History: cardiac catheterization Alcohol Use: None Drug Use: none Lives with: Spouse, Alone Lives In: Home Occupation: disabled Review of Systems All Other Systems at this time: Reviewed and Negative Physical Exam Physical Exam Vital Signs: RN Vital Signs have been reviewed: Yes, Temperature: 97.6, Source: Oral, Heart Rate: 101, Respiratory Rate: 16, BP: 124/72, Pulse Oximetry: 98, Weight: 79.090 Oxygen Flow Rate: 0 Pulse Oximetry Reflects: adequate oxygenation Physical Exam General: Alert, no distress. HEENT: No injection, moist mucous membranes. Neck: Full range of motion. Respiratory: No respiratory distress, equal chest rise and fall. Chest: No accessory muscle use. Cardiovascular: Regular rate and rhythm. Gastrointestinal: Nondistended. Extremities: Normal range of motion, no deformity. Neurologic: Oriented x4. Psychiatric: Normal mood and affect. Skin: Normal color, warm and dry. Progress Results/Orders Reviewed/noted all lab results: Yes Results/Orders Vital Signs 07/09/25 10:32 Temp 97.6 Pulse 101 Resp 16 B/P (MAP) 124/72 Pulse Ox 98 O2 Flow Rate 0 Medical Decision Making Additional info obtained from: old records Findings She is complaining of left shoulder pain due to a fracture. She is awaiting surgery. She has been out of her Percocet due to it being locked in her car. She is not requesting a refill of this medication. For her pain I gave her a Percocet 5/325 which is the same as her current prescription while she was waiting in the department. We discussed supportive care measures such as ice/heat, using her sling and resting this arm. Differential Dx:Considerations: Include: Adverse circumstances, Economic, Medication refill, Medication non-compliance Departure Disposition: 01 HOME / SELF CARE / HOMELESS Impression: Primary Impression: Pain Condition: Stable Discharge Instructions: Shoulder Pain, [id number] Additional Instructions: Continue to wear your sling as directed by your orthopedic doctor. You have been given a dose of Percocet while you are here in the department. Please work on obtaining the rest of your prescription out of your car. Continue with follow up with your primary care provider within the next week and return back here for any new or worsening symptoms. Referrals: NO PRIMARY CARE PROVIDER (PCP) Education Educated: Patient Educated regarding: diagnosis, treatment, prognosis, need for follow up Additional Comment Medical Screen Exam This patient recieved a medical screening examination. After reviewing the individual's medical complaints with presenting symptoms and performing an appropriate physical examination, it was determined that no immediate life- threatening emergency medical condition is present. This individual is also not a women having contractions. Signature Scribe Signature: . Attestation: Scribed for Emergency,Department by Lucie Gage NP . 07/09/25 11:43 Parts of this note were created using [employer] voice recognition software program. While efforts were made to correct any mistakes made by this voice recognition software program, nonsensical phrases may remain in this note. In addition, there may be errors and syntax, grammar, content and spelling. LUCIE RAMIREZ [facility] Jul 09, 2025 11:43
[2025-07-09] MEDS: oxyCODONE/APAP 5-325mg tablet PO ONE (12:08)
[2025-07-09 12:10] VITALS: BP 155/80; PULSE 89; RESP 18; TEMP 97.6; O2SAT 99
== END 2025-07-09 12:15 | disposition home or self-care (01) ==
LOC: ER 10:10
DX: M25.512 Pain in left shoulder (principal); E11.9 Type 2 diabetes mellitus without complications; E78.00 Pure hypercholesterolemia, unspecified; G89.29 Other chronic pain; I10 Essential (primary) hypertension; I25.10 Atherosclerotic heart disease of native coronary artery without angina pectoris; I25.2 Old myocardial infarction; M19.90 Unspecified osteoarthritis, unspecified site; J44.9 Chronic obstructive pulmonary disease, unspecified; K21.9 Gastro-esophageal reflux disease without esophagitis; F32.A Depression, unspecified; Z98.51 Tubal ligation status; Z88.1 Allergy status to other antibiotic agents; Z88.8 Allergy status to other drugs, medicaments and biological substances; Z88.2 Allergy status to sulfonamides; Z87.19 Personal history of other diseases of the digestive system; Z79.82 Long term (current) use of aspirin; Z79.899 Other long term (current) drug therapy; Z60.2 Problems related to living alone; Z98.890 Other specified postprocedural states
CPT/HCPCS: 99283

== ENCOUNTER 2025-08-30 08:39 | Outpatient (CLI) | payer MEDICAID ==
[~2025-08-30 08:39] MED LIST changes: -HYDR-3965 PO
--- NOTE | 2025-08-30 13:12 | PROCEDURE NOTE ---
Procedure Note Providers to CC ~ Interpretation: [place] EEG Note # Demographics Type of EEG Read: - Routine EEG - video Patient Location: Outpatient First Name: Landy Last Name: Neal Date of : 1960 Age: 65 Gender: Female Facility: [facility] Time of Initial Page (): 08/30/2025 09:52 First Contact with Site (): 08/30/2025 09:54 # EEG Interpretation Start Time of EEG Read (): 08/30/2025 09:20 Stop Time of EEG Read (): 08/30/2025 09:45 Duration: 0h 25m Technical Details: - The EEG electrodes were placed using the standard International 10-20 system of electrode placement. Video and an accessory EKG lead were used during the course of this study. - This study was recorded using the [employer] EEG software Indication: - altered mental status - seizure # Description Photic Stimulation: Performed Hyperventilation: NOT performed Phases Captured: - awake - drowsy - sleep Symmetry: symmetric Posterior Dominant Rhythm: - present, attenuates on eye opening 9.5Hz Predominant Frequencies: - posterior dominant alpha (8-12 Hz) - abundant (50-89%) Superimposed Frequencies: - theta (4-7 Hz) - rare (<1%) Amplitude: normal Reactivity: yes Variability: yes Continuity: continuous # Abnormalities Stimulation: - photic stimulation does NOT cause abnormalities Epileptiform Abnormalities: - NOT present Focal Slowing: no Seizure: - NOT present # Impression Impression: normal # Clinical Correlation Clinical Correlation: This is a normal EEG in the awake and sleep state. No epileptiform discharges, focal slowing, or seizures were seen. A normal EEG does not exclude nor support the diagnosis of epilepsy. # Demographics First Name: Landy Last Name: Neal Facility: [facility] JIMMY ZAYAS MD Aug 30, 2025 13:12
== END 2025-08-30 23:59 | disposition home or self-care (01) ==
LOC: RAD 08:39
PROVIDERS: ATTEND Neuromusculoskeletal Medicine & OMM
DX: R56.9 Unspecified convulsions (principal)
CPT/HCPCS: 95816